=== PATIENT | male | born 1960 | race African-American/Black ===

== ENCOUNTER 2017-09-09 10:50 | Inpatient (IN) | payer SELFPAY ==
[~2017-09-09] VITALS: Ht 180.3 cm; Wt 76.7 kg
[2017-09-09] VITALS (12 sets, daily range): BP systolic 115–153; BP diastolic 89–98
[2017-09-09] MEDS ORDERED: Isovue-300 100ml vial INJ PRN (11:30)
[2017-09-09] MEDS ORDERED: Morphine Sulfate 4mg/ml Inj IVP ONE (11:30)
[2017-09-09] MEDS ORDERED: Ketorolac 30mg Inj IV ONE (11:30)
[2017-09-09] MEDS ORDERED: Gastrograffin 30ml ORAL PRN (11:30)
[2017-09-09 11:32] LABS: BASOPHILS % (AUTO) 1.4 % (0.0-2.0); HEMATOCRIT 46.6 % (42.0-52.0); HEMOGLOBIN 16.2 G/DL (14.2-18.0); LYMPHOCYTES % (AUTO) 13.3 % (20.0-45.0); MEAN CORPUSCULAR VOLUME 92 FL (80-99); NEUTROPHILS % (AUTO) 82.3 % (45.0-75.0); PLATELET COUNT 159 K/UL (150-450); RED BLOOD COUNT 5.07 M/UL (4.70-6.10); WHITE BLOOD COUNT 17.6 K/UL (4.8-10.8)
[2017-09-09 12:07] LABS: ALANINE AMINOTRANSFERASE 28 U/L (12-78); ALBUMIN 4.3 G/DL (3.4-5.0); ALKALINE PHOSPHATASE 58 U/L (46-116); ANION GAP 12 mmol/L (5-15); ASPARTATE AMINO TRANSFERASE 25 U/L (15-37); BILIRUBIN,TOTAL 0.6 MG/DL (0.2-1.0); BLOOD UREA NITROGEN 19 mg/dL (7-18); CALCIUM 9.7 MG/DL (8.5-10.1); CARBON DIOXIDE 25 MMOL/L (21-32); CHLORIDE 91 MMOL/L (98-107); CREATININE 1.4 MG/DL (0.55-1.30); SODIUM 128 MMOL/L (136-145)
[2017-09-09 12:09] LABS: POTASSIUM 2.6 MMOL/L (3.5-5.1)
[2017-09-09] MEDS ORDERED: Piperacillin/Tazobactam 3.375 GM in NS 110 ML IVPB ONE (13:45)
--- NOTE | 2017-09-09 13:48 | Diagnostic Imaging Report ---
Indication: Abdominal pain Technique: Continuous helical transaxial imaging of the abdomen and pelvis was obtained from the lung bases to the pubic symphysis during intravenous contrast administration. Coronal 2-D reformats were also obtained. Study obtained in a Siemens sensation [address] Automatic Exposure Control was utilized. Total Dose length Product (DLP): 515.[address] Dose Index Volume (CTDIvol): 9.87 mGy Comparison: None Findings: There is free intraperitoneal air and fluid demonstrated within the upper abdomen. Suspect perforated duodenal ulcer. In the area of the first portion of the duodenum there is a crescentic focus of contrast and air (for example image 24-27) with an apparent narrowing of the lumen in this location. Consequently the stomach is markedly dilated. This may be an ulceration. There may be an ulceration associated with stricture or narrowing. A mass is not excluded. Further evaluation is needed. The appendix is seen and normal. There are mildly distended loops of small bowel likely reactive ileus. No evidence of bowel obstruction. There is contrast within the colon. The kidneys, liver, spleen, pancreas appear normal. Gallbladder is unremarkable. IMPRESSION: Evidence of a perforation of a hollow viscus. Moderate free air is in the upper abdomen. Moderate free fluid. There is dilatation of the stomach with apparent narrowing in the first portion of duodenum with suspicion of a mucosal ulcer. Suspect this is the area of perforation due to [place] ulceration or ulcerative tumor. Critical value communication. Findings were discussed via telephone with Dr. Perez in the Emergency department at 1:40 pm, 09/09/[address] scanner at [facility] is accredited by the [employer] and the scans are performed using dose optimization techniques as appropriate to a performed exam including Automatic Exposure control.
--- NOTE | 2017-09-09 14:53 | Emergency Room Report ---
History of Present Illness General Chief Complaint: Abdominal Pain Source: EMS Present Illness HPI 56-year-old M presents ED complaining of abdominal pain. Patient states pain started this morning. Sudden onset. 10 out of 10, diffuse. Upon arrival patient is diaphoretic, tachycardic. Denies fevers or chills. Denies chest pain or shortness of breath. Notes vomiting. No other aggravating or relieving factors. Denies any other associated symptoms Allergies: Coded Allergies: No Known Allergies (Unverified , 09/09/17) Patient History Past Medical History: none Past Surgical History: none Pertinent Family History: none Social History: Denies: smoking, alcohol use, drug use Immunizations: UTD Reviewed Nursing Documentation: PMH: Agreed; PSxH: Agreed Nursing Documentation-PMH Past Medical History: No Stated History Review of Systems All Other Systems: negative except mentioned in HPI Physical Exam Vital Signs Date Time Temp Pulse Resp B/P (MAP) Pulse Ox O2 Delivery O2 Flow Rate FiO2 09/09/17 10:47 98.6 111 19 152/100 99 Room Air 98.6 Sp02 EP Interpretation: reviewed, normal General Appearance: alert, GCS 15, non-toxic, mild distress, thin, other - diaphoretic Head: normocephalic, atraumatic Eyes: bilateral eye normal inspection, bilateral eye PERRL ENT: hearing grossly normal, normal pharynx, no angioedema, normal voice Neck: full range of motion, supple/symm/no masses Respiratory: chest non-tender, lungs clear, normal breath sounds, speaking full sentences Cardiovascular #1: regular rate, rhythm, no edema Cardiovascular #2: 2+ carotid (R), 2+ carotid (L), 2+ radial (R), 2+ radial (L) , 2+ dorsalis pedis (R), 2+ dorsalis pedis (L) Gastrointestinal: distended, guarding, rebound Rectal: deferred Genitourinary: normal inspection, no CVA tenderness Musculoskeletal: back normal, gait/station normal, normal range of motion, non- tender Neurologic: alert, oriented x3, responsive, motor strength/tone normal, sensory intact, speech normal Psychiatric: judgement/insight normal, memory normal, mood/affect normal, no suicidal/homicidal ideation Reflexes: 3+ bicep (R), 3+ bicep (L), 3+ tricep (R), 3+ tricep (L), 3+ knee (R) , 3+ knee (L) Skin: normal color, no rash, warm/dry, well hydrated Lymphatic: no adenopathy Procedures Critical Care Time Critical Care Time i. I feel this is a highly complex case requiring extensive working including EKG/Rhythm strip, Xray/CT/US, Blood/urine lab work, repeat exams while in ED, and administration of strong opiates/narcotics for pain control, admission to hospital or close patient follow up. Total time: 30 min bedside evaluation and treatment excludes procedures (EKG). Reason for critical care: Abdominal pain, septic, low potassium. Perforated ulcer Possible complications: hypotension, hypertension, KS, shock, arrhythmias, metabolic acidosis, end organ damage, respiratory failure. Interventions: Labs, IV fluids, CT head, meds. Antibiotics. Potassium repletion. Consultation with surgery Course: Patient present with abdominal pain, tachycardic, diaphoretic with rigid abdomen. Significant white count. Lactic greater than 4. Potassium low. CT shows perforated ulcer with free air. Antibiotics given. Consultation with surgery. Consultations: nursing staff, EMS, family Performed by: Dr Perez Tolerated well condition = serious j. because of unstable vital signs this patient had a condition that could potentially threaten life or limb. I feel this is a critical patient who required my full attention while patient was considered critical. Total Critical Care Time excluding procedures was greater than 35 minutes Medical Decision Making Diagnostic Impression: Primary Impression: Perforated ulcer Additional Impressions: Free intraperitoneal air Severe sepsis ER Course Hospital Course 56-year-old male presents to ED with abdominal pain and vomiting. diaphoretic Differential diagnoses include: BPH, cystitis, pyelonephritis, kidney stone,SBO Clinical course Patient placed on stretcher. personnel monitor. After initial history and physical I ordered labs, IV fluids, UA, pain medication and CT scan Labs - noted leukocytosis, Hb/Hct stable. K low. lactate > 4 CT abdomen and pelvis - perofrated ulcer with free air EKG - NSR, no acute ischemic changes interpreted by me Patient made nothing by mouth. Given IV fluids. Given broad-spectrum antibiotics. Surgery at bedside and will take patient to OR Case discussed with Dr. Ortiz and he agreed to accept the patient to his service for further care and support. I feel this is a highly complex case requiring extensive working including EKG/ Rhythm strip, Xray/CT/US, Blood/urine lab work, repeat exams while in ED, and administration of strong opiates/narcotics for pain control, admission to hospital or close patient follow up. Diagnosis - perforated ulcer, free intraperionteal air, severe sepsis Patient to OR in serious condition Labs Test 09/09/17 10:35 09/09/17 11:15 09/09/17 11:40 09/09/17 13:40 White Blood Count 17.6 K/UL (4.8-10.8) Red Blood Count 5.07 M/UL (4.70-6.10) Hemoglobin 16.2 G/DL (14.2-18.0) Hematocrit 46.6 % (42.0-52.0) Mean Corpuscular Volume 92 FL (80-99) Mean Corpuscular Hemoglobin 31.9 PG (27.0-31.0) Mean Corpuscular Hemoglobin Concent 34.7 G/DL (32.0-36.0) Red Cell Distribution Width 11.0 % (11.6-14.8) Platelet Count 159 K/UL (150-450) Mean Platelet Volume 7.4 FL (6.5-10.1) Neutrophils (%) (Auto) 82.3 % (45.0-75.0) Lymphocytes (%) (Auto) 13.3 % (20.0-45.0) Monocytes (%) (Auto) 3.0 % (1.0-10.0) Eosinophils (%) (Auto) 0.0 % (0.0-3.0) Basophils (%) (Auto) 1.4 % (0.0-2.0) Prothrombin Time 10.7 SEC (9.30-11.50) Prothromb Time International Ratio 1.0 (0.9-1.1) Activated Partial Thromboplast Time 23 SEC (23-33) Sodium Level 128 MMOL/L (136-145) Potassium Level 2.6 MMOL/L (3.5-5.1) Chloride Level 91 MMOL/L (98-107) Carbon Dioxide Level 25 MMOL/L (21-32) Anion Gap 12 mmol/L (5-15) Blood Urea Nitrogen 19 mg/dL (7-18) Creatinine 1.4 MG/DL (0.55-1.30) Estimat Glomerular Filtration Rate 52.2 mL/min (>60) Glucose Level 179 MG/DL (74-106) Lactic Acid Level 4.50 mmol/L (0.66-2.22) 4.40 mmol/L (0.66-2.22) Calcium Level 9.7 MG/DL (8.5-10.1) Total Bilirubin 0.6 MG/DL (0.2-1.0) Aspartate Amino Transf (AST/SGOT) 25 U/L (15-37) Alanine Aminotransferase (ALT/SGPT) 28 U/L (12-78) Alkaline Phosphatase 58 U/L (46-116) Total Protein 8.5 G/DL (6.4-8.2) Albumin 4.3 G/DL (3.4-5.0) Globulin 4.2 g/dL Albumin/Globulin Ratio 1.0 (1.0-2.7) Lipase 79 U/L (73-393) EKG Diagnostic Results Rate: normal Rhythm: NSR ST Segments: no acute changes ASA given to the pt in ED: No Rhythm Strip Diag. Results EP Interpretation: yes Rhythm: NSR, no PVC's, no ectopy CT/MRI/US Diagnostic Results CT/MRI/US Diagnostic Results : Imaging Test Ordered: CT A/P Impression perforated duodenal ulcer. + free air peritoneum Last Vital Signs Date Time Temp Pulse Resp B/P (MAP) Pulse Ox O2 Delivery O2 Flow Rate FiO2 09/09/17 14:07 98.8 86 28 131/94 100 Room Air 98.8 Status: improved Disposition: ADMITTED INPATIENT Condition: Serious Scripts No Active Prescriptions or Reported Meds Referrals: NOT CHOSEN IPA/,REFERRING (PCP) Hernandez Perez MD September 09, 2017 14:53
--- NOTE | 2017-09-09 14:54 | Pre-Procedure Note/Attestation ---
Pre-Procedure Note/Attestation Complete Prior to Procedure Planned Procedure: not applicable Procedure Narrative: exploratory laparotomy, possible bowel resection, possible ostomy Indications for Procedure Pre-Operative Diagnosis: perforated abdominal viscus Attestation I attest that I discussed the nature of the procedure; its benefits; risks and complications; and alternatives (and the risks and benefits of such alternatives ), prior to the procedure, with the patient (or the patient's legal entry level sales representative). I attest that, if there was a reasonable possibility of needing a blood transfusion, the patient (or the patient's legal entry level sales representative) was given the [facility] standardized written summary, pursuant to the [place] Blood Safety Act ([place] Health and Safety Code # 1645, as amended). I attest that I re-evaluated the patient just prior to the surgery and that there has been no change in the patient's H&P, except as documented below: Yury Pittman September 09, 2017 14:54
--- NOTE | 2017-09-09 14:58 | Consultation ---
History of Present Illness General Date patient seen: September 09, 2017 Chief Complaint: Abdominal Pain Reason for Consultation: perforated abdominal viscus Present Illness HPI 56M presented to ED with abdominal pain. initially started 2-3 days ago and has progressively worsened. thought it was related to food but as pain was severe 01/21 this AM came to ED for evaluation. no n/v/f/c. has not had prior similar episodes. in ED had CT which demonstrated pneumoperitoneum consistent with perforated abd viscus. surgery called to evaluate Allergies: Coded Allergies: No Known Allergies (Unverified , 09/09/17) Medication History No Active Prescriptions or Reported Meds Patient History History Provided By: Patient, Medical Record, PMD Healthcare decision maker Resuscitation status Advanced Directive on File Past Medical/Surgical History Past Medical/Surgical History: (1) Perforated ulcer (2) Severe sepsis (3) Free intraperitoneal air Review of Systems All Other Systems: negative except mentioned in HPI Physical Exam General Appearance: mild distress Lines, tubes and drains: peripheral HEENT: atraumatic Neck: normal inspection Respiratory/Chest: lungs clear, normal breath sounds, no respiratory distress Cardiovascular/Chest: normal peripheral pulses, normal rate Abdomen: no organomegaly, no mass, distended, guarding, rebound, tender Extremities: normal inspection Neurologic: alert, oriented x 3 Last 24 Hour Vital Signs Date Time Temp Pulse Resp B/P (MAP) Pulse Ox O2 Delivery O2 Flow Rate FiO2 09/09/17 14:07 98.8 86 28 131/94 100 Room Air 98.8 09/09/17 12:15 98.8 09/09/17 12:15 98.8 09/09/17 12:05 98.8 90 19 128/97 100 Room Air 98.8 09/09/17 11:46 98.6 09/09/17 11:45 98.6 09/09/17 10:56 98.6 130 24 115/89 100 Room Air 98.6 09/09/17 10:47 98.6 111 19 152/100 99 Room Air 98.6 Laboratory Tests Test 09/09/17 10:35 09/09/17 11:15 09/09/17 11:40 09/09/17 13:40 White Blood Count 17.6 K/UL (4.8-10.8) H Red Blood Count 5.07 M/UL (4.70-6.10) Hemoglobin 16.2 G/DL (14.2-18.0) Hematocrit 46.6 % (42.0-52.0) Mean Corpuscular Volume 92 FL (80-99) Mean Corpuscular Hemoglobin 31.9 PG (27.0-31.0) H Mean Corpuscular Hemoglobin Concent 34.7 G/DL (32.0-36.0) Red Cell Distribution Width 11.0 % (11.6-14.8) L Platelet Count 159 K/UL (150-450) Mean Platelet Volume 7.4 FL (6.5-10.1) Neutrophils (%) (Auto) 82.3 % (45.0-75.0) H Lymphocytes (%) (Auto) 13.3 % (20.0-45.0) L Monocytes (%) (Auto) 3.0 % (1.0-10.0) Eosinophils (%) (Auto) 0.0 % (0.0-3.0) Basophils (%) (Auto) 1.4 % (0.0-2.0) Prothrombin Time 10.7 SEC (9.30-11.50) Prothromb Time International Ratio 1.0 (0.9-1.1) Activated Partial Thromboplast Time 23 SEC (23-33) Sodium Level 128 MMOL/L (136-145) L Potassium Level 2.6 MMOL/L (3.5-5.1) *L Chloride Level 91 MMOL/L (98-107) L Carbon Dioxide Level 25 MMOL/L (21-32) Anion Gap 12 mmol/L (5-15) Blood Urea Nitrogen 19 mg/dL (7-18) H Creatinine 1.4 MG/DL (0.55-1.30) H Estimat Glomerular Filtration Rate 52.2 mL/min (>60) Glucose Level 179 MG/DL (74-106) H Lactic Acid Level 4.50 mmol/L (0.66-2.22) H 4.40 mmol/L (0.66-2.22) H Calcium Level 9.7 MG/DL (8.5-10.1) Total Bilirubin 0.6 MG/DL (0.2-1.0) Aspartate Amino Transf (AST/SGOT) 25 U/L (15-37) Alanine Aminotransferase (ALT/SGPT) 28 U/L (12-78) Alkaline Phosphatase 58 U/L (46-116) Total Protein 8.5 G/DL (6.4-8.2) H Albumin 4.3 G/DL (3.4-5.0) Globulin 4.2 g/dL Albumin/Globulin Ratio 1.0 (1.0-2.7) Lipase 79 U/L (73-393) Height (Feet): 5 Height (Inches): 11.00 Weight (Pounds): 170 Medications Current Medications Medications (Trade) Dose Ordered Sig/Tisha Route PRN Reason Start Time Stop Time Status Last Admin Dose Admin Diatrizoate Meglum/ Diatrizoate Sod (Gastrografin) 30 ml NOW PRN ORAL Radiology Procedure 09/09/17 11:30 Iopamidol (Isovue-300 100ml) 100 ml NOW PRN INJ Radiology Procedure 09/09/17 11:30 09/11/17 11:29 Assessment/Plan Problem List: (1) Perforated abdominal viscus SNOMED: 106192464 (2) Free intraperitoneal air Assessment & Plan: 56M perforated abdominal viscus. free air and fluid on CT. exam with distended rigid abdomen. labs as above. -to OR for exploratory laparotomy. -NPO -IV fluids -IV Abx -consent ICD Codes: K66.8 - Other specified disorders of peritoneum SNOMED: 31575422 Status: not improved Yury Pittman September 09, 2017 14:58
[2017-09-09] MEDS ORDERED: Sterile Water Irrig 1000ml IRRIG ONE (15:00)
[2017-09-09] MEDS ORDERED: Metoprolol 5mg/5ml Inj ONE (15:00)
[2017-09-09] MEDS ORDERED: LR 1000ml ONE (15:00)
[2017-09-09] MEDS ORDERED: NS Irrig 1000ml ONE (15:00)
[2017-09-09] MEDS ORDERED: Zemuron 50mg/5ml Inj IV ONE (15:00)
[2017-09-09] MEDS ORDERED: Glycopyrrolate 0.2mg/ml 1ml Vial ONE (15:00)
[2017-09-09] MEDS ORDERED: Neostigmine 1mg/ml 10ml Inj ONE (15:00)
[2017-09-09] MEDS ORDERED: Lidocaine 1% Plain 30 ml INJ ONE (15:04)
[2017-09-09] MEDS ORDERED: Lidocaine 1% MPF 10mg/ml 5ml ONE (15:06)
[2017-09-09] MEDS ORDERED: Dexamethasone 4mg/ml vial ONE (15:06)
[2017-09-09] MEDS ORDERED: Sodium Chloride 10ml vial INJ ONE (15:06)
[2017-09-09] MEDS ORDERED: Propofol 200mg/20ml IV ONE (15:06)
[2017-09-09] MEDS ORDERED: fentaNYL 100 mcg/2 mL IV ONE (15:09)
[2017-09-09] MEDS ORDERED: Bacitracin 50000 Units Vial ONE (15:19)
[2017-09-09] MEDS ORDERED: Lidocaine 1% 10mg/ml/Epi 0.005mg/ml 30ml vial INJ ONE (15:19)
[2017-09-09] MEDS ORDERED: NeoSporin Gu Irrig 1ml Amp IRRIG ONE (15:19)
[2017-09-09] MEDS ORDERED: NS Irrig 1000ml IRRIG ONE (15:20)
--- NOTE | 2017-09-09 16:05 | Anethesia Preoperative Eval ---
Anesthesia Pre-op PMH/ROS General Date of Evaluation: September 09, 2017 Time of Evaluation: 15:11 Anesthesiologist: Vivian ASA Score: ASA 3 - Emergency Mallampati Score Class I : Soft palate, uvula, fauces, pillars visible Class II: Soft palate, uvula, fauces visible Class III: Soft palate, base of uvula visible Class IV: Only hard plate visible Mallampati Classification: Class III Surgeon: Zain Diagnosis: Abd Pain Surgical Procedure: Exploratory laparotomy, Corect Pre Pyloric Ulcer Anesthesia History: none Family History: no anesthesia problems Allergies: Coded Allergies: No Known Allergies (Unverified , 09/09/17) Medications: see eMAR Past Medical History Cardiovascular: Reports: HTN Gastrointestinal/Genitourinary: Reports: other - Free Intraperitoneal Air Hematology/Immune: Reports: other - Severe Sepsis, Leukocytosis Anesthesia Pre-op Phys. Exam Physician Exam Last Vital Signs Date Time Temp Pulse Resp B/P (MAP) Pulse Ox O2 Delivery O2 Flow Rate FiO2 09/09/17 15:05 98.8 86 28 134/94 100 Room Air 98.8 Constitutional: NAD Neurologic: CN 2-12 intact Cardiovascular: RRR Respiratory: CTA Gastrointestinal: S/NT/ND Airway Exam Mallampati Score: Class III MO: limited ROM: limited Teeth: missing, intact, broken Anesthesia Pre-op A/P Labs Hematology Test 09/09/17 10:35 White Blood Count 17.6 K/UL (4.8-10.8) H Red Blood Count 5.07 M/UL (4.70-6.10) Hemoglobin 16.2 G/DL (14.2-18.0) Hematocrit 46.6 % (42.0-52.0) Mean Corpuscular Volume 92 FL (80-99) Mean Corpuscular Hemoglobin 31.9 PG (27.0-31.0) H Mean Corpuscular Hemoglobin Concent 34.7 G/DL (32.0-36.0) Red Cell Distribution Width 11.0 % (11.6-14.8) L Platelet Count 159 K/UL (150-450) Mean Platelet Volume 7.4 FL (6.5-10.1) Neutrophils (%) (Auto) 82.3 % (45.0-75.0) H Lymphocytes (%) (Auto) 13.3 % (20.0-45.0) L Monocytes (%) (Auto) 3.0 % (1.0-10.0) Eosinophils (%) (Auto) 0.0 % (0.0-3.0) Basophils (%) (Auto) 1.4 % (0.0-2.0) Coagulation Test 09/09/17 11:15 Prothrombin Time 10.7 SEC (9.30-11.50) Prothromb Time International Ratio 1.0 (0.9-1.1) Activated Partial Thromboplast Time 23 SEC (23-33) Chemistry Test 09/09/17 11:40 09/09/17 13:40 Sodium Level 128 MMOL/L (136-145) L Potassium Level 2.6 MMOL/L (3.5-5.1) *L Chloride Level 91 MMOL/L (98-107) L Carbon Dioxide Level 25 MMOL/L (21-32) Anion Gap 12 mmol/L (5-15) Blood Urea Nitrogen 19 mg/dL (7-18) H Creatinine 1.4 MG/DL (0.55-1.30) H Estimat Glomerular Filtration Rate 52.2 mL/min (>60) Glucose Level 179 MG/DL (74-106) H Lactic Acid Level 4.50 mmol/L (0.66-2.22) H 4.40 mmol/L (0.66-2.22) H Calcium Level 9.7 MG/DL (8.5-10.1) Total Bilirubin 0.6 MG/DL (0.2-1.0) Aspartate Amino Transf (AST/SGOT) 25 U/L (15-37) Alanine Aminotransferase (ALT/SGPT) 28 U/L (12-78) Alkaline Phosphatase 58 U/L (46-116) Total Protein 8.5 G/DL (6.4-8.2) H Albumin 4.3 G/DL (3.4-5.0) Globulin 4.2 g/dL Albumin/Globulin Ratio 1.0 (1.0-2.7) Lipase 79 U/L (73-393) Risk Assessment & Plan Assessment: ASA 3E Plan: GA, BIS, GlideScope Status Change Before Surgery: No Pre-Antibiotics Dru Grams Ancef IV Given Within 1 Hr of Incision: Yes Time Given: 15:41 Walter Park MD September 09, 2017 16:05
[2017-09-09] MEDS ORDERED: LR 1000ml 1,000 ML IVLG SCH (16:21)
--- NOTE | 2017-09-09 16:26 | Immediate Post-Op Evaluation ---
Immediate Post-Op Evalulation Immediate Post-Op Evalulation Procedure: Ex Lap, Correct Pre Pyloric Rent Date of Evaluation: September 09, 2017 Time of Evaluation: 18:20 IV Fluids: 400 LR Blood Products: 0 Estimated Blood Loss: 50 Urinary Output: 0 Blood Pressure Systolic: 140 Blood Pressure Diastolic: 94 Pulse Rate: 66 Respiratory Rate: 16 O2 Sat by Pulse Oximetry: 100 Temperature (Fahrenheit): 97.4 Pain Score (1-10): 3 Nausea: No Vomiting: No Complications 0 Patient Status: awake, reacts, patent, extubated, none Hydration Status: adequate Dru Grams Ancef IV Given Within 1 Hr of Incision: Yes Time Given: 15:41 Walter Park MD September 09, 2017 16:26
[2017-09-09] MEDS ORDERED: LORazepam Inj 2mg/ml 1ml IV PRN (16:30)
[2017-09-09] MEDS ORDERED: Atropine Inj 1mg/10ml Syr IV PRN (16:30)
[2017-09-09] MEDS ORDERED: Metoclopramide 10mg/2ml Inj IVP PRN (16:30)
[2017-09-09] MEDS ORDERED: Acetaminophen (Non formulary) 100 ML IV ONE (16:30)
[2017-09-09] MEDS ORDERED: Ketorolac 30mg Inj IV PRN ×3 (16:30→18:00)
[2017-09-09] MEDS ORDERED: Midazolam 2mg/2ml Inj IVP PRN (16:30)
[2017-09-09] MEDS ORDERED: oxyCODONE HCL/Acetaminophen 5/325mg ORAL PRN (16:30)
[2017-09-09] MEDS ORDERED: HYDROcodone/Acetamin 7.5/325 tab ORAL PRN (16:30)
[2017-09-09] MEDS ORDERED: Norco 5mg/325mg tab ORAL PRN (16:30)
[2017-09-09] MEDS ORDERED: Hydromorphone 0.5mg/0.5ml inj IVP PRN ×2 (16:30→18:00)
[2017-09-09] MEDS ORDERED: DiphenhydrAMINE 50mg/ml Inj IVP PRN ×2 (16:30→18:00)
[2017-09-09] MEDS ORDERED: Labetalol 5mg/ml 20ml vial IV PRN (16:30)
[2017-09-09] MEDS ORDERED: fentaNYL 100 mcg/2 mL IV PRN (16:30)
--- NOTE | 2017-09-09 17:59 | Brief Operative Note ---
Immediate Post Operative Note Operative Note Pre-op Diagnosis: perforated abdominal viscus Procedure: exploratory laparotomy, antrectomy, gastrojejunostomy (Billroth 2 procedure) Post-op Diagnosis: perforated pyloric channel ulcer Surgeon: yuri Anesthesiologist: August Anesthesia: general Specimen: yes - antrectomy with perforatedulcer Complications: none Condition: stable Fluids: see records Estimated Blood Loss: volume - 100 Drains: BOAZ Implant(s) used?: No Yury Pittman September 09, 2017 17:59
[2017-09-09] MEDS ORDERED: Morphine Sulfate 4mg/ml Inj IVP PRN (18:00)
[2017-09-09] MEDS ORDERED: Acetaminophen 650 MG SUPP RECTAL PRN (18:00)
[2017-09-09] MEDS: Pantoprazole Inj IVP SCH (21:28)
[2017-09-09] MEDS: D5 1/2NS w/KCl 20mEq 1,000 ML IV SCH (21:28)
[2017-09-09] MEDS: Heparin 5000 units/ml inj SUBQ SCH (21:29)
[2017-09-09] MEDS: Piperacillin/Tazobactam 3.375 GM in NS 110 ML IVPB SCH (22:10)
[2017-09-10] VITALS: BP 137/88
--- NOTE | 2017-09-10 02:00 | History and Physical Report ---
DATE OF ADMISSION: 09/09/2017 CONSULTANTS: 1. Yury Pittman M.D. 2. Gil Henry M.D. 3. Vaibhav Ricci M.D. 4. Gem Ashley M.D. CHIEF COMPLAINT: Abdominal pain, vomiting, and perforated duodenal ulcer. BRIEF HISTORY: This 56-year-old male, complaining of abdominal pain for three days, gotten worse, he began ecame vomiting, came to [place], diagnosed with perforated duodenal ulcer and being admitted shortly. Currently, slightly anxious in bed, in the ER, oriented x3, in no acute distress. The patient was seen by surgeon, Dr. Pittman. PAST MEDICAL HISTORY: Nothing. PAST SURGICAL HISTORY: None. MEDICATIONS: Zosyn, Zofran, famotidine, Ketoralac, morphine, and diltiazem. ALLERGIES: Denies. SOCIAL HISTORY: No smoking. Occasional alcohol. No intravenous drug abuse. FAMILY HISTORY: Noncontributory. PHYSICAL EXAMINATION: GENERAL: Slightly anxious in bed, oriented x3, no acute distress. VITAL SIGNS: Temperature 98 degrees, pulse 86, respirations 20 and blood pressure 131/94. CARDIOVASCULAR: No murmur. LUNGS: Distant. ABDOMEN: Bowel sounds positive. Soft, nontender, and nondistended. EXTREMITIES: No cyanosis, clubbing or edema. NEUROLOGIC: The patient moves all extremities, slightly weak. LABORATORY AND DIAGNOSTIC DATA: White count 17, otherwise CBC is normal. BMP shows sodium 128, potassium 2.6, chloride 91, bicarbonate 25, BUN and creatinine 19 and 1.4, and glucose 179. INR is 1.0. ASSESSMENT: 1. Perforated duodenal ulcer. 2. Possible diabetes. 3. Hypertension. PLAN: 1. Continue previous medications. 2. OT/PT. 3. Dietary evaluation. 4. CBC and BMP in the morning. 5. Pain control. 6. Blood pressure and blood sugar control. 7. Dr. Pittman, Dr. Henry, Dr. Ricci, Dr. Ashley, Dr. Scott and Dr. Velázquez to consult. 8. We will continue to follow the patient medically. Real Ortiz D.O. DR: UGO JOB#: [id number] CC:
[2017-09-10 04:00] VITALS: BP 130/87
[2017-09-10] MEDS: Piperacillin/Tazobactam 3.375 GM in NS 110 ML IVPB SCH ×3 (05:44→22:36)
[2017-09-10] MEDS: D5 1/2NS w/KCl 20mEq 1,000 ML IV SCH ×3 (05:44→21:00)
[2017-09-10 07:58] LABS: HEMATOCRIT 36.2 % (42.0-52.0); HEMOGLOBIN 13.1 G/DL (14.2-18.0); MEAN CORPUSCULAR VOLUME 91 FL (80-99); PLATELET COUNT 145 K/UL (150-450); RED BLOOD COUNT 3.98 M/UL (4.70-6.10); WHITE BLOOD COUNT 15.9 K/UL (4.8-10.8)
[2017-09-10 08:00] VITALS: BP 129/80
[2017-09-10] MEDS: Pantoprazole Inj IVP SCH ×2 (08:26→22:35)
[2017-09-10] MEDS: Heparin 5000 units/ml inj SUBQ SCH ×2 (08:27→21:12)
[2017-09-10 08:33] LABS: ALANINE AMINOTRANSFERASE 27 U/L (12-78); ALBUMIN 2.6 G/DL (3.4-5.0); ALBUMIN/GLOBULIN RATIO 0.8 (1.0-2.7); ALKALINE PHOSPHATASE 39 U/L (46-116); ANION GAP 9 mmol/L (5-15); ASPARTATE AMINO TRANSFERASE 33 U/L (15-37); BILIRUBIN,TOTAL 0.4 MG/DL (0.2-1.0); BLOOD UREA NITROGEN 18 mg/dL (7-18); CALCIUM 7.8 MG/DL (8.5-10.1); CARBON DIOXIDE 23 MMOL/L (21-32); CHLORIDE 100 MMOL/L (98-107); CREATININE 1.2 MG/DL (0.55-1.30); POTASSIUM 3.7 MMOL/L (3.5-5.1); SODIUM 131 MMOL/L (136-145)
--- NOTE | 2017-09-10 10:38 | 48 Hour Post Anesthesia Eval ---
Post Anesthesia Evaluation Procedure: Ex Lap, Correct Pre Pyloric Rent Date of Evaluation: September 10, 2017 Blood Pressure Systolic: 130 0: 87 Pulse Rate: 89 Respiratory Rate: 20 Temperature (Fahrenheit): 99 O2 Sat by Pulse Oximetry: 100 Airway: patent Nausea: No Vomiting: No Pain Intensity: 3 Hydration Status: adequate Cardiopulmonary Status: at baseline Mental Status/LOC: patient returned to baseline Post-Anesthesia Complications: 0 Follow-up care needed: N/A - further care as per prmary team KIMO DENNY M.D. September 10, 2017 10:38
--- NOTE | 2017-09-10 11:35 | General Progress Note ---
Progress Note Progress Note [id number] full consult dictated Gogo Velázquez MD September 10, 2017 11:35
--- NOTE | 2017-09-10 11:38 | GI Initial Consult Note ---
History of Present Illness General Date patient seen: September 10, 2017 Time patient seen: 10:00 Reason for Hospitalization: Abdominal Pain Referring physician: JULIO Reason for Consultation: perforated abdominal viscus Present Illness HPI 56-year-old M presents ED complaining of abdominal pain. Patient states pain started this morning. Sudden onset. 10 out of 10, diffuse. Upon arrival patient is diaphoretic, tachycardic. Denies fevers or chills. Denies chest pain or shortness of breath. Notes vomiting. No other aggravating or relieving factors. Denies any other associated symptoms. Patient is currently s/p exploratory laparotomy, antrectomy, gastrojejunostomy ( Billroth 2 procedure) for perforated DU. GI consulted for abdominal pain, post operative N/V. Patient seen, awake A&O x 4 NAD noted with NGT to LIS. C/ o of abdominal pain, but tolerable. Presents with leukocytosis, hyperchromic anemia. Denies any medical history. Unknown history of endoscopy / colonoscopy. Home Meds No Active Prescriptions or Reported Meds Allergies: Coded Allergies: No Known Allergies (Unverified , 09/09/17) Patient History History Provided By: Patient, Medical Record PMH Narrative Past Medical History: none Past Surgical History: none Pertinent Family History: none Social History: Denies: smoking, alcohol use, drug use Immunizations: UTD Reviewed Nursing Documentation: PMH: Agreed; PSxH: Agreed Nursing Documentation-PMH Past Medical History: No Stated History Review of Systems All Other Systems: negative except mentioned in HPI Physical Exam Vital Signs Date Time Temp Pulse Resp B/P (MAP) Pulse Ox O2 Delivery O2 Flow Rate FiO2 09/09/17 10:47 98.6 111 19 152/100 99 Room Air 98.6 09/09/17 18:09 8.0 Sp02 EP Interpretation: reviewed, normal Labs Laboratory Tests Test 09/09/17 11:40 09/09/17 13:40 09/10/17 07:30 Sodium Level 128 MMOL/L (136-145) L 131 MMOL/L (136-145) L Potassium Level 2.6 MMOL/L (3.5-5.1) *L 3.7 MMOL/L (3.5-5.1) Chloride Level 91 MMOL/L (98-107) L 100 MMOL/L (98-107) Carbon Dioxide Level 25 MMOL/L (21-32) 23 MMOL/L (21-32) Anion Gap 12 mmol/L (5-15) 9 mmol/L (5-15) Blood Urea Nitrogen 19 mg/dL (7-18) H 18 mg/dL (7-18) Creatinine 1.4 MG/DL (0.55-1.30) H 1.2 MG/DL (0.55-1.30) Estimat Glomerular Filtration Rate 52.2 mL/min (>60) > 60 mL/min (>60) Glucose Level 179 MG/DL (74-106) H 95 MG/DL (74-106) Lactic Acid Level 4.50 mmol/L (0.66-2.22) H 4.40 mmol/L (0.66-2.22) H Calcium Level 9.7 MG/DL (8.5-10.1) 7.8 MG/DL (8.5-10.1) L Total Bilirubin 0.6 MG/DL (0.2-1.0) 0.4 MG/DL (0.2-1.0) Aspartate Amino Transf (AST/SGOT) 25 U/L (15-37) 33 U/L (15-37) Alanine Aminotransferase (ALT/SGPT) 28 U/L (12-78) 27 U/L (12-78) Alkaline Phosphatase 58 U/L (46-116) 39 U/L (46-116) L Total Protein 8.5 G/DL (6.4-8.2) H 5.7 G/DL (6.4-8.2) #L Albumin 4.3 G/DL (3.4-5.0) 2.6 G/DL (3.4-5.0) L Globulin 4.2 g/dL 3.1 g/dL Albumin/Globulin Ratio 1.0 (1.0-2.7) 0.8 (1.0-2.7) L Lipase 79 U/L (73-393) White Blood Count 15.9 K/UL (4.8-10.8) H Red Blood Count 3.98 M/UL (4.70-6.10) L Hemoglobin 13.1 G/DL (14.2-18.0) L Hematocrit 36.2 % (42.0-52.0) L Mean Corpuscular Volume 91 FL (80-99) Mean Corpuscular Hemoglobin 32.9 PG (27.0-31.0) H Mean Corpuscular Hemoglobin Concent 36.1 G/DL (32.0-36.0) H Red Cell Distribution Width 11.0 % (11.6-14.8) L Platelet Count 145 K/UL (150-450) L Mean Platelet Volume 7.7 FL (6.5-10.1) Neutrophils (%) (Auto) % (45.0-75.0) Lymphocytes (%) (Auto) % (20.0-45.0) Monocytes (%) (Auto) % (1.0-10.0) Eosinophils (%) (Auto) % (0.0-3.0) Basophils (%) (Auto) % (0.0-2.0) Differential Total Cells Counted 100 Neutrophils % (Manual) 84 % (45-75) H Lymphocytes % (Manual) 8 % (20-45) L Monocytes % (Manual) 3 % (1-10) Eosinophils % (Manual) 0 % (0-3) Basophils % (Manual) 0 % (0-2) Band Neutrophils 5 % (0-8) Platelet Estimate Decreased L Platelet Morphology Normal Red Blood Cell Morphology Normal Helicobacter pylori IgG Antibody Pending Helicobacter pylori IgA Antibody Pending Helicobacter pylori IgM Antibody Pending General Appearance: well appearing, no apparent distress, alert Head: normocephalic EENT: PERRL/EOMI, normal ENT inspection Neck: supple Respiratory: normal breath sounds, no respiratory distress Cardiovascular: normal rate Gastrointestinal: normal inspection, non tender, soft, normal bowel sounds, non -distended, ngt, other - surgical incision site Rectal: deferred Genitourinary: deferred Musculoskeletal: normal inspection, back normal Neurologic: normal inspection, alert, oriented x3, responsive Psychiatric: normal inspection, judgement/insight normal, memory normal Skin: normal inspection, normal color, no rash, warm/dry, palpation normal, well hydrated Lymphatic: normal inspection, no adenopathy Current Medications Current Medications Medications (Trade) Dose Ordered Sig/Tisha Route PRN Reason Start Time Stop Time Status Last Admin Dose Admin Acetaminophen (Tylenol) 650 mg Q4H PRN RECTAL FEVER (temp>100.5F) 09/09/17 18:00 10/09/17 17:59 Dextrose/ Electrolytes 1,000 ml @ 100 mls/hr Q10H IV 09/09/17 20:00 10/09/17 19:59 09/10/17 05:44 Diatrizoate Meglum/ Diatrizoate Sod (Gastrografin) 30 ml NOW PRN ORAL Radiology Procedure 09/09/17 11:30 09/11/17 11:29 Diphenhydramine HCl (Benadryl) 12.5 mg Q6H PRN IVP Itching/Pruritis 09/09/17 18:00 10/09/17 17:59 Heparin Sodium (Porcine) (Heparin 5000 units/ml) 5,000 units EVERY 12 HOURS SUBQ 09/09/17 21:00 10/09/17 20:59 09/10/17 08:27 Hydromorphone HCl (Dilaudid) 0.5 mg Q3H PRN IVP Pain Score 1-3 09/09/17 18:00 09/16/17 17:59 Iopamidol (Isovue-300 100ml) 100 ml NOW PRN INJ Radiology Procedure 09/09/17 11:30 09/11/17 11:29 Ketorolac Tromethamine (Toradol 30mg) 15 mg Q6H PRN IV Moderate Pain (Pain Scale 4-6) 09/09/17 18:00 09/14/17 17:59 Morphine Sulfate (Morphine Sulfate) 4 mg Q4H PRN IVP Severe Pain (Pain Scale 7-10) 09/09/17 18:00 09/16/17 17:59 09/10/17 10:12 Ondansetron HCl (Zofran) 4 mg Q6H PRN IVP Nausea & Vomiting 09/09/17 18:00 10/09/17 17:59 Pantoprazole (Protonix) 40 mg Q12HR IVP 09/09/17 21:00 10/09/17 20:59 09/10/17 08:26 Piperacillin Sod/ Tazobactam Sod 3.375 gm/Sodium Chloride 110 ml @ 27.5 mls/hr EVERY 8 HOURS IVPB 09/09/17 22:00 09/14/17 21:59 09/10/17 05:44 GI: Plan Problems: (1) Perforated abdominal viscus (2) Severe sepsis (3) Abdominal pain Plan s/p exploratory laparotomy, antrectomy, gastrojejunostomy (Billroth 2 procedure) hyperchromic anemia electrolyte imbalance fu surgical recs NPO + IVFs NGT to LIS pain mgmt zofran prn ppi IV fu labs outpatient GI procedures Discussed with Dr. Henry. Thank you for this patient referral, we will follow. The patient was seen and examined at bedside and all new and available data was reviewed in the patients chart. I agree with the above findings, impression and plan. (Patient seen earlier today. Signature stamp does not reflect patient encounter time.). - MD Tracy SilvaBanner [facility] September 10, 2017 11:38
[2017-09-10 12:00] VITALS: BP 142/83
--- NOTE | 2017-09-10 12:01 | Consultation ---
History of Present Illness General Date patient seen: September 10, 2017 Chief Complaint: Abdominal Pain Reason for Consultation: perforated abdominal viscus Present Illness HPI 56-year-old Male presented to ED complaining of abdominal pain. he was diagnosed to have perforated viscus and underwent laparotomy. Allergies: Coded Allergies: No Known Allergies (Unverified , 09/09/17) Medication History No Active Prescriptions or Reported Meds Patient History Healthcare decision maker Resuscitation status Full Code Advanced Directive on File Review of Systems All Other Systems: negative except mentioned in HPI Physical Exam General Appearance: WD/WN Lines, tubes and drains: peripheral HEENT: normocephalic, anicteric Neck: non-tender, normal alignment Respiratory/Chest: chest wall non-tender, lungs clear Breasts: no masses Cardiovascular/Chest: normal peripheral pulses Abdomen: normal bowel sounds Last 24 Hour Vital Signs Date Time Temp Pulse Resp B/P (MAP) Pulse Ox O2 Delivery O2 Flow Rate FiO2 09/10/17 10:38 210.2 89 20 100 09/10/17 08:00 97.3 82 20 129/80 100 Nasal Cannula 3.0 97.3 09/10/17 04:00 99.0 89 20 130/87 100 Room Air 99.0 09/10/17 03:47 93 09/10/17 00:00 98.6 95 20 137/88 100 Room Air 98.6 09/09/17 23:50 78 09/09/17 20:30 80 09/09/17 20:00 97.2 67 16 153/92 100 Room Air 97.2 09/09/17 19:10 97.0 67 16 148/91 99 Nasal Cannula 3.0 97.0 09/09/17 19:00 64 16 147/93 100 Nasal Cannula 3.0 09/09/17 18:43 64 16 147/93 100 Simple Mask 8.0 09/09/17 18:30 63 16 147/96 100 Simple Mask 8.0 09/09/17 18:19 64 16 143/98 100 Simple Mask 8.0 09/09/17 18:14 66 16 151/98 100 Simple Mask 8.0 09/09/17 18:10 207.3 66 16 100 09/09/17 18:09 97.4 66 16 140/94 100 Simple Mask 8.0 97.4 09/09/17 15:05 98.8 86 28 134/94 100 Room Air 98.8 09/09/17 15:01 98.8 86 28 134/94 100 Room Air 98.8 09/09/17 14:07 98.8 86 28 131/94 100 Room Air 98.8 09/09/17 12:15 98.8 09/09/17 12:15 98.8 09/09/17 12:05 98.8 90 19 128/97 100 Room Air 98.8 09/09/17 11:46 98.6 Intake and Output 09/09/17 09/10/17 19:00 07:00 Intake Total 600 ml 1273.98 ml Output Total 200 ml 505 ml Balance 400 ml 768.98 ml Intake Oral 0 ml IV Total 600 ml 1273.98 ml Output Urine Total 150 ml 250 ml Gastric Drainage Total 10 ml Drainage Total 245 ml Estimated Blood Loss 50 ml Laboratory Tests Test 09/09/17 13:40 09/10/17 07:30 Lactic Acid Level 4.40 mmol/L (0.66-2.22) H White Blood Count 15.9 K/UL (4.8-10.8) H Red Blood Count 3.98 M/UL (4.70-6.10) L Hemoglobin 13.1 G/DL (14.2-18.0) L Hematocrit 36.2 % (42.0-52.0) L Mean Corpuscular Volume 91 FL (80-99) Mean Corpuscular Hemoglobin 32.9 PG (27.0-31.0) H Mean Corpuscular Hemoglobin Concent 36.1 G/DL (32.0-36.0) H Red Cell Distribution Width 11.0 % (11.6-14.8) L Platelet Count 145 K/UL (150-450) L Mean Platelet Volume 7.7 FL (6.5-10.1) Neutrophils (%) (Auto) % (45.0-75.0) Lymphocytes (%) (Auto) % (20.0-45.0) Monocytes (%) (Auto) % (1.0-10.0) Eosinophils (%) (Auto) % (0.0-3.0) Basophils (%) (Auto) % (0.0-2.0) Differential Total Cells Counted 100 Neutrophils % (Manual) 84 % (45-75) H Lymphocytes % (Manual) 8 % (20-45) L Monocytes % (Manual) 3 % (1-10) Eosinophils % (Manual) 0 % (0-3) Basophils % (Manual) 0 % (0-2) Band Neutrophils 5 % (0-8) Platelet Estimate Decreased L Platelet Morphology Normal Red Blood Cell Morphology Normal Sodium Level 131 MMOL/L (136-145) L Potassium Level 3.7 MMOL/L (3.5-5.1) Chloride Level 100 MMOL/L (98-107) Carbon Dioxide Level 23 MMOL/L (21-32) Anion Gap 9 mmol/L (5-15) Blood Urea Nitrogen 18 mg/dL (7-18) Creatinine 1.2 MG/DL (0.55-1.30) Estimat Glomerular Filtration Rate > 60 mL/min (>60) Glucose Level 95 MG/DL (74-106) Calcium Level 7.8 MG/DL (8.5-10.1) L Total Bilirubin 0.4 MG/DL (0.2-1.0) Aspartate Amino Transf (AST/SGOT) 33 U/L (15-37) Alanine Aminotransferase (ALT/SGPT) 27 U/L (12-78) Alkaline Phosphatase 39 U/L (46-116) L Total Protein 5.7 G/DL (6.4-8.2) #L Albumin 2.6 G/DL (3.4-5.0) L Globulin 3.1 g/dL Albumin/Globulin Ratio 0.8 (1.0-2.7) L Helicobacter pylori IgG Antibody Pending Helicobacter pylori IgA Antibody Pending Helicobacter pylori IgM Antibody Pending Microbiology Date/Time Source Procedure Growth Status 09/09/17 16:03 Abdomen Gram Stain - Final Resulted 09/09/17 16:03 Abdomen Aerobic Culture - Preliminary NO GROWTH Resulted 09/09/17 16:03 Abdomen Anaerobic Culture - Preliminary Resulted Height (Feet): 5 Height (Inches): 11.00 Weight (Pounds): 169 Medications Current Medications Medications (Trade) Dose Ordered Sig/Tisha Route PRN Reason Start Time Stop Time Status Last Admin Dose Admin Acetaminophen (Tylenol) 650 mg Q4H PRN RECTAL FEVER (temp>100.5F) 09/09/17 18:00 10/09/17 17:59 Dextrose/ Electrolytes 1,000 ml @ 100 mls/hr Q10H IV 09/09/17 20:00 10/09/17 19:59 09/10/17 05:44 Diatrizoate Meglum/ Diatrizoate Sod (Gastrografin) 30 ml NOW PRN ORAL Radiology Procedure 09/09/17 11:30 09/11/17 11:29 Diphenhydramine HCl (Benadryl) 12.5 mg Q6H PRN IVP Itching/Pruritis 09/09/17 18:00 10/09/17 17:59 Heparin Sodium (Porcine) (Heparin 5000 units/ml) 5,000 units EVERY 12 HOURS SUBQ 09/09/17 21:00 10/09/17 20:59 09/10/17 08:27 Hydromorphone HCl (Dilaudid) 0.5 mg Q3H PRN IVP Pain Score 1-3 09/09/17 18:00 09/16/17 17:59 Iopamidol (Isovue-300 100ml) 100 ml NOW PRN INJ Radiology Procedure 09/09/17 11:30 09/11/17 11:29 Ketorolac Tromethamine (Toradol 30mg) 15 mg Q6H PRN IV Moderate Pain (Pain Scale 4-6) 09/09/17 18:00 09/14/17 17:59 Morphine Sulfate (Morphine Sulfate) 4 mg Q4H PRN IVP Severe Pain (Pain Scale 7-10) 09/09/17 18:00 09/16/17 17:59 09/10/17 10:12 Ondansetron HCl (Zofran) 4 mg Q6H PRN IVP Nausea & Vomiting 09/09/17 18:00 10/09/17 17:59 Pantoprazole (Protonix) 40 mg Q12HR IVP 09/09/17 21:00 10/09/17 20:59 09/10/17 08:26 Piperacillin Sod/ Tazobactam Sod 3.375 gm/Sodium Chloride 110 ml @ 27.5 mls/hr EVERY 8 HOURS IVPB 09/09/17 22:00 09/14/17 21:59 09/10/17 05:44 Assessment/Plan Problem List: (1) Severe sepsis ICD Codes: A41.9 - Sepsis, unspecified organism; R65.20 - Severe sepsis without septic shock SNOMED: 78739093 (2) Perforated ulcer ICD Codes: K27.5 - Chronic or unspecified peptic ulcer, site unspecified, with perforation SNOMED: 18590417 Assessment/Plan NPO iv fluids IV abx check cultures check electrolytes Gem Ashley MD September 10, 2017 12:01
--- NOTE | 2017-09-10 14:22 | General Progress Note ---
Progress Note Progress Note Surgery: doing well. no acute events. NG tube with bilious output. BOAZ drain with serous output. wound c/d/i. exam benign. labs reviewed. POD #1 s/p ex lap with antrectomy and gastrojejunostomy (Billroth 2) for large perforated perpyloric ulcer. -NPO x 3-5 days -NG tube to low intermittent suction. (DO NOT replace NG tube if dislodged) -IV fludis -IV Abx -d/c li -ambulate and out of bed -AM labs -heparin Yury Pittman September 10, 2017 14:22
--- NOTE | 2017-09-10 15:15 | Consultation ---
History of Present Illness General Date patient seen: September 10, 2017 Chief Complaint: Abdominal Pain Referring physician: JULIO Reason for Consultation: perforated abdominal viscus Present Illness HPI 56 y/o M with no prior medical history presents to ED on 09/09 with 2-3 days of worsening abd pain. In ED noted to be diaphoretic, tachycardic and found to have perforated viscus and underwent emergent laparotomy which revealed perforated duodenal ulcer. Post op patient developed nausea and vomiting. Denies f/c, n/v, CP, SOB upon admission. Leukocytosis, improving afebrile Allergies: Coded Allergies: No Known Allergies (Unverified , 09/09/17) Medication History No Active Prescriptions or Reported Meds Patient History Healthcare decision maker Resuscitation status Full Code Advanced Directive on File Patient History Narrative Pmhx: as above Shx: reviewed Fhx: non contributory Review of Systems All Other Systems: negative except mentioned in HPI Physical Exam Physical Exam Narrative General Appearance: WD/WN Lines, tubes and drains: peripheral HEENT: normocephalic, anicteric Neck: non-tender, normal alignment Respiratory/Chest: chest wall non-tender, lungs clear Breasts: no masses Cardiovascular/Chest: normal peripheral pulses Abdomen: surgical dressings in place Last 24 Hour Vital Signs Date Time Temp Pulse Resp B/P (MAP) Pulse Ox O2 Delivery O2 Flow Rate FiO2 09/10/17 12:00 98.1 96 20 142/83 100 Nasal Cannula 3.0 98.1 09/10/17 12:00 77 09/10/17 10:38 210.2 89 20 100 09/10/17 08:00 86 09/10/17 08:00 97.3 82 20 129/80 100 Nasal Cannula 3.0 97.3 09/10/17 04:00 99.0 89 20 130/87 100 Room Air 99.0 09/10/17 03:47 93 09/10/17 00:00 98.6 95 20 137/88 100 Room Air 98.6 09/09/17 23:50 78 09/09/17 20:30 80 09/09/17 20:00 97.2 67 16 153/92 100 Room Air 97.2 09/09/17 19:10 97.0 67 16 148/91 99 Nasal Cannula 3.0 97.0 09/09/17 19:00 64 16 147/93 100 Nasal Cannula 3.0 09/09/17 18:43 64 16 147/93 100 Simple Mask 8.0 09/09/17 18:30 63 16 147/96 100 Simple Mask 8.0 09/09/17 18:19 64 16 143/98 100 Simple Mask 8.0 09/09/17 18:14 66 16 151/98 100 Simple Mask 8.0 09/09/17 18:10 207.3 66 16 100 09/09/17 18:09 97.4 66 16 140/94 100 Simple Mask 8.0 97.4 09/09/17 15:05 98.8 86 28 134/94 100 Room Air 98.8 09/09/17 15:01 98.8 86 28 134/94 100 Room Air 98.8 Intake and Output 09/09/17 09/10/17 19:00 07:00 Intake Total 600 ml 1273.98 ml Output Total 200 ml 505 ml Balance 400 ml 768.98 ml Intake Oral 0 ml IV Total 600 ml 1273.98 ml Output Urine Total 150 ml 250 ml Gastric Drainage Total 10 ml Drainage Total 245 ml Estimated Blood Loss 50 ml Laboratory Tests Test 09/10/17 07:30 White Blood Count 15.9 K/UL (4.8-10.8) H Red Blood Count 3.98 M/UL (4.70-6.10) L Hemoglobin 13.1 G/DL (14.2-18.0) L Hematocrit 36.2 % (42.0-52.0) L Mean Corpuscular Volume 91 FL (80-99) Mean Corpuscular Hemoglobin 32.9 PG (27.0-31.0) H Mean Corpuscular Hemoglobin Concent 36.1 G/DL (32.0-36.0) H Red Cell Distribution Width 11.0 % (11.6-14.8) L Platelet Count 145 K/UL (150-450) L Mean Platelet Volume 7.7 FL (6.5-10.1) Neutrophils (%) (Auto) % (45.0-75.0) Lymphocytes (%) (Auto) % (20.0-45.0) Monocytes (%) (Auto) % (1.0-10.0) Eosinophils (%) (Auto) % (0.0-3.0) Basophils (%) (Auto) % (0.0-2.0) Differential Total Cells Counted 100 Neutrophils % (Manual) 84 % (45-75) H Lymphocytes % (Manual) 8 % (20-45) L Monocytes % (Manual) 3 % (1-10) Eosinophils % (Manual) 0 % (0-3) Basophils % (Manual) 0 % (0-2) Band Neutrophils 5 % (0-8) Platelet Estimate Decreased L Platelet Morphology Normal Red Blood Cell Morphology Normal Sodium Level 131 MMOL/L (136-145) L Potassium Level 3.7 MMOL/L (3.5-5.1) Chloride Level 100 MMOL/L (98-107) Carbon Dioxide Level 23 MMOL/L (21-32) Anion Gap 9 mmol/L (5-15) Blood Urea Nitrogen 18 mg/dL (7-18) Creatinine 1.2 MG/DL (0.55-1.30) Estimat Glomerular Filtration Rate > 60 mL/min (>60) Glucose Level 95 MG/DL (74-106) Calcium Level 7.8 MG/DL (8.5-10.1) L Total Bilirubin 0.4 MG/DL (0.2-1.0) Aspartate Amino Transf (AST/SGOT) 33 U/L (15-37) Alanine Aminotransferase (ALT/SGPT) 27 U/L (12-78) Alkaline Phosphatase 39 U/L (46-116) L Total Protein 5.7 G/DL (6.4-8.2) #L Albumin 2.6 G/DL (3.4-5.0) L Globulin 3.1 g/dL Albumin/Globulin Ratio 0.8 (1.0-2.7) L Helicobacter pylori IgG Antibody Pending Helicobacter pylori IgA Antibody Pending Helicobacter pylori IgM Antibody Pending Microbiology Date/Time Source Procedure Growth Status 09/09/17 16:03 Abdomen Gram Stain - Final Resulted 09/09/17 16:03 Abdomen Aerobic Culture - Preliminary NO GROWTH Resulted 09/09/17 16:03 Abdomen Anaerobic Culture - Preliminary Resulted Height (Feet): 5 Height (Inches): 11.00 Weight (Pounds): 169 Medications Current Medications Medications (Trade) Dose Ordered Sig/Tisha Route PRN Reason Start Time Stop Time Status Last Admin Dose Admin Acetaminophen (Tylenol) 650 mg Q4H PRN RECTAL FEVER (temp>100.5F) 09/09/17 18:00 10/09/17 17:59 Dextrose/ Electrolytes 1,000 ml @ 100 mls/hr Q10H IV 09/09/17 20:00 10/09/17 19:59 09/10/17 05:44 Diphenhydramine HCl (Benadryl) 12.5 mg Q6H PRN IVP Itching/Pruritis 09/09/17 18:00 10/09/17 17:59 Heparin Sodium (Porcine) (Heparin 5000 units/ml) 5,000 units EVERY 12 HOURS SUBQ 09/09/17 21:00 10/09/17 20:59 09/10/17 08:27 Hydromorphone HCl (Dilaudid) 0.5 mg Q3H PRN IVP Pain Score 1-3 09/09/17 18:00 09/16/17 17:59 Ketorolac Tromethamine (Toradol 30mg) 15 mg Q6H PRN IV Moderate Pain (Pain Scale 4-6) 09/09/17 18:00 09/14/17 17:59 Morphine Sulfate (Morphine Sulfate) 4 mg Q4H PRN IVP Severe Pain (Pain Scale 7-10) 09/09/17 18:00 09/16/17 17:59 09/10/17 10:12 Ondansetron HCl (Zofran) 4 mg Q6H PRN IVP Nausea & Vomiting 09/09/17 18:00 10/09/17 17:59 Pantoprazole (Protonix) 40 mg Q12HR IVP 09/09/17 21:00 10/09/17 20:59 09/10/17 08:26 Piperacillin Sod/ Tazobactam Sod 3.375 gm/Sodium Chloride 110 ml @ 27.5 mls/hr EVERY 8 HOURS IVPB 09/09/17 22:00 09/14/17 21:59 09/10/17 13:20 Assessment/Plan Assessment/Plan Abx: Ancef x1 09/09 Zosyn 09/09- Assessment: Perforated duodenal ulcer -s/p exploratory laparotomy, antrectomy, gastrojejunostomy (Billroth 2 procedure) 09/09 -OR cx NTD -CT abd/p: Evidence of a perforation of a hollow viscus. Moderate free air is in the upper abdomen. Moderate free fluid. There is dilatation of the stomach with apparent narrowing in the first portion of duodenum with suspicion of a mucosal ulcer. Suspect this is the area of perforation due to [place] ulceration or ulcerative tumor. Leukocytosis, improving- 2ry to above -afebrile HAM, improving Plan: -Continue sushant-op Zosyn #2 -f/u cx -Monitor CBC/BMP, temperatures -wound care -aspiration precautions -Sx f/u Thank you for this consultation. Will continue to follow along with you. Discussed with AYO. Belkys Farrell M.D. September 10, 2017 15:15
--- NOTE | 2017-09-10 15:58 | Cardiology Report ---
APPROVED REPORT EKG Measurement Heart [id number] DC [id number] Normal sinus rhythm Biatrial enlargement Left ventricular hypertrophy Cannot rule out Septal infarct, age undetermined Abnormal ECG
[2017-09-10 16:00] VITALS: BP 132/90
--- NOTE | 2017-09-10 16:06 | General Progress Note ---
Assessment/Plan Problem List: (1) Perforated ulcer ICD Codes: K27.5 - Chronic or unspecified peptic ulcer, site unspecified, with perforation SNOMED: 54037604 (2) Severe sepsis ICD Codes: A41.9 - Sepsis, unspecified organism; R65.20 - Severe sepsis without septic shock SNOMED: 90398549 (3) Free intraperitoneal air ICD Codes: K66.8 - Other specified disorders of peritoneum SNOMED: 13943919 (4) Perforated abdominal viscus SNOMED: 253777392 (5) Abdominal pain ICD Codes: R10.9 - Unspecified abdominal pain SNOMED: 41531604 Status: unchanged Assessment/Plan ot pt dit abx pain control gi sx f/u cbc bmp am Subjective Constitutional: Reports: weakness Allergies: Coded Allergies: No Known Allergies (Unverified , 09/09/17) All Systems: reviewed and negative except above Subjective ng lethargic in bed Objective Last 24 Hour Vital Signs Date Time Temp Pulse Resp B/P (MAP) Pulse Ox O2 Delivery O2 Flow Rate FiO2 09/10/17 12:00 98.1 96 20 142/83 100 Nasal Cannula 3.0 98.1 09/10/17 12:00 77 09/10/17 10:38 210.2 89 20 100 09/10/17 08:00 86 09/10/17 08:00 97.3 82 20 129/80 100 Nasal Cannula 3.0 97.3 09/10/17 04:00 99.0 89 20 130/87 100 Room Air 99.0 09/10/17 03:47 93 09/10/17 00:00 98.6 95 20 137/88 100 Room Air 98.6 09/09/17 23:50 78 09/09/17 20:30 80 09/09/17 20:00 97.2 67 16 153/92 100 Room Air 97.2 09/09/17 19:10 97.0 67 16 148/91 99 Nasal Cannula 3.0 97.0 09/09/17 19:00 64 16 147/93 100 Nasal Cannula 3.0 09/09/17 18:43 64 16 147/93 100 Simple Mask 8.0 09/09/17 18:30 63 16 147/96 100 Simple Mask 8.0 09/09/17 18:19 64 16 143/98 100 Simple Mask 8.0 09/09/17 18:14 66 16 151/98 100 Simple Mask 8.0 09/09/17 18:10 207.3 66 16 100 09/09/17 18:09 97.4 66 16 140/94 100 Simple Mask 8.0 97.4 Intake and Output 09/09/17 09/10/17 19:00 07:00 Intake Total 600 ml 1273.98 ml Output Total 200 ml 505 ml Balance 400 ml 768.98 ml Intake Oral 0 ml IV Total 600 ml 1273.98 ml Output Urine Total 150 ml 250 ml Gastric Drainage Total 10 ml Drainage Total 245 ml Estimated Blood Loss 50 ml Laboratory Tests 09/10/17 07:30: White Blood Count 15.9H, Red Blood Count 3.98L, Hemoglobin 13.1L, Hematocrit 36.2L, Mean Corpuscular Volume 91, Mean Corpuscular Hemoglobin 32.9H, Mean Corpuscular Hemoglobin Concent 36.1H, Red Cell Distribution Width 11.0L, Platelet Count 145L, Mean Platelet Volume 7.7, Neutrophils (%) (Auto) , Lymphocytes (%) (Auto) , Monocytes (%) (Auto) , Eosinophils (%) (Auto) , Basophils (%) (Auto) , Differential Total Cells Counted 100, Neutrophils % ( Manual) 84H, Lymphocytes % (Manual) 8L, Monocytes % (Manual) 3, Eosinophils % ( Manual) 0, Basophils % (Manual) 0, Band Neutrophils 5, Platelet Estimate DecreasedL, Platelet Morphology Normal, Red Blood Cell Morphology Normal, Sodium Level 131L, Potassium Level 3.7, Chloride Level 100, Carbon Dioxide Level 23, Anion Gap 9, Blood Urea Nitrogen 18, Creatinine 1.2, Estimat Glomerular Filtration Rate > 60, Glucose Level 95, Calcium Level 7.8L, Total Bilirubin 0.4, Aspartate Amino Transf (AST/SGOT) 33, Alanine Aminotransferase ( ALT/SGPT) 27, Alkaline Phosphatase 39L, Total Protein 5.7#L, Albumin 2.6L, Globulin 3.1, Albumin/Globulin Ratio 0.8L, Helicobacter pylori IgG Antibody [ Pending], Helicobacter pylori IgA Antibody [Pending], Helicobacter pylori IgM Antibody [Pending] Height (Feet): 5 Height (Inches): 11.00 Weight (Pounds): 169 General Appearance: lethargic EENT: normal ENT inspection Neck: normal alignment Cardiovascular: normal peripheral pulses, normal rate, regular rhythm Respiratory/Chest: chest wall non-tender, lungs clear, normal breath sounds Abdomen: hypoactive bowel sounds, distended Extremities: normal inspection Edema: no edema noted Arm (L), no edema noted Arm (R), no edema noted Leg (L), no edema noted Leg (R), no edema noted Pedal (L), no edema noted Pedal (R), no edema noted Generalized Neurologic: responsive, motor weakness Skin: normal pigmentation, warm/dry Real Ortiz DO September 10, 2017 16:06
[2017-09-10] MEDS ORDERED: Tubing IV Secondary IV ONE (19:55)
[2017-09-10] MEDS ORDERED: NS 275ml ONE (19:55)
[2017-09-10 20:00] VITALS: BP 131/91
--- NOTE | 2017-09-10 20:43 | Cardiology Progress Note ---
Assessment/Plan Assessment/Plan The patient is seen and examined, full consult note will be dictated. Objective Last 24 Hour Vital Signs Date Time Temp Pulse Resp B/P (MAP) Pulse Ox O2 Delivery O2 Flow Rate FiO2 09/10/17 16:00 80 09/10/17 16:00 98.6 85 20 132/90 100 Nasal Cannula 3.0 98.6 09/10/17 12:00 98.1 96 20 142/83 100 Nasal Cannula 3.0 98.1 09/10/17 12:00 77 09/10/17 10:38 210.2 89 20 100 09/10/17 08:00 86 09/10/17 08:00 97.3 82 20 129/80 100 Nasal Cannula 3.0 97.3 09/10/17 04:00 99.0 89 20 130/87 100 Room Air 99.0 09/10/17 03:47 93 09/10/17 00:00 98.6 95 20 137/88 100 Room Air 98.6 09/09/17 23:50 78 Intake and Output 09/09/17 09/10/17 19:00 07:00 Intake Total 600 ml 1273.98 ml Output Total 200 ml 505 ml Balance 400 ml 768.98 ml Intake Oral 0 ml IV Total 600 ml 1273.98 ml Output Urine Total 150 ml 250 ml Gastric Drainage Total 10 ml Drainage Total 245 ml Estimated Blood Loss 50 ml Laboratory Tests Test 09/10/17 07:30 White Blood Count 15.9 K/UL (4.8-10.8) H Red Blood Count 3.98 M/UL (4.70-6.10) L Hemoglobin 13.1 G/DL (14.2-18.0) L Hematocrit 36.2 % (42.0-52.0) L Mean Corpuscular Volume 91 FL (80-99) Mean Corpuscular Hemoglobin 32.9 PG (27.0-31.0) H Mean Corpuscular Hemoglobin Concent 36.1 G/DL (32.0-36.0) H Red Cell Distribution Width 11.0 % (11.6-14.8) L Platelet Count 145 K/UL (150-450) L Mean Platelet Volume 7.7 FL (6.5-10.1) Neutrophils (%) (Auto) % (45.0-75.0) Lymphocytes (%) (Auto) % (20.0-45.0) Monocytes (%) (Auto) % (1.0-10.0) Eosinophils (%) (Auto) % (0.0-3.0) Basophils (%) (Auto) % (0.0-2.0) Differential Total Cells Counted 100 Neutrophils % (Manual) 84 % (45-75) H Lymphocytes % (Manual) 8 % (20-45) L Monocytes % (Manual) 3 % (1-10) Eosinophils % (Manual) 0 % (0-3) Basophils % (Manual) 0 % (0-2) Band Neutrophils 5 % (0-8) Platelet Estimate Decreased L Platelet Morphology Normal Red Blood Cell Morphology Normal Sodium Level 131 MMOL/L (136-145) L Potassium Level 3.7 MMOL/L (3.5-5.1) Chloride Level 100 MMOL/L (98-107) Carbon Dioxide Level 23 MMOL/L (21-32) Anion Gap 9 mmol/L (5-15) Blood Urea Nitrogen 18 mg/dL (7-18) Creatinine 1.2 MG/DL (0.55-1.30) Estimat Glomerular Filtration Rate > 60 mL/min (>60) Glucose Level 95 MG/DL (74-106) Calcium Level 7.8 MG/DL (8.5-10.1) L Total Bilirubin 0.4 MG/DL (0.2-1.0) Aspartate Amino Transf (AST/SGOT) 33 U/L (15-37) Alanine Aminotransferase (ALT/SGPT) 27 U/L (12-78) Alkaline Phosphatase 39 U/L (46-116) L Total Protein 5.7 G/DL (6.4-8.2) #L Albumin 2.6 G/DL (3.4-5.0) L Globulin 3.1 g/dL Albumin/Globulin Ratio 0.8 (1.0-2.7) L Helicobacter pylori IgG Antibody Pending Helicobacter pylori IgA Antibody Pending Helicobacter pylori IgM Antibody Pending Microbiology Date/Time Source Procedure Growth Status 09/09/17 16:03 Abdomen Gram Stain - Final Resulted 09/09/17 16:03 Abdomen Aerobic Culture - Preliminary NO GROWTH Resulted 09/09/17 16:03 Abdomen Anaerobic Culture - Preliminary Resulted Mayur Scott MD September 10, 2017 20:43
--- NOTE | 2017-09-10 20:45 | Operative Note - Dictated ---
DATE OF OPERATION: 09/10/2007 PREOPERATIVE DIAGNOSIS: Perforated abdominal viscus. POSTOPERATIVE DIAGNOSIS: Large perforated pre-pyloric ulcer causing gastric outlet obstruction. OPERATION PERFORMED: 1. Exploratory laparotomy. 2. Antrectomy with gastrojejunostomy Billroth II procedure. 3. Abdominal washout. SURGEON: Yury Pittman M.D. SAP SENIOR DEVELOPER: None. ANESTHESIOLOGIST: Walter Park M.D. 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 ESTIMATED BLOOD LOSS: 100 mL. IV FLUIDS: Please see anesthesia records. WOUND CLASSIFICATION: Class III. DRAINS: Jett-Guillermo drain x1. SPECIMENS: Antrectomy with perforated ulcer. COUNTS: Sponge and needle count correct x2. ANTIBIOTICS: The patient was given intravenous Zosyn 1 hour prior to cut time. INDICATIONS FOR PROCEDURE: This is a 56-year-old male, who presented to the emergency department with worsening abdominal pain. The patient states that few days ago, abdominal pain began and has progressively worsened to the point that he could barely walk and required emergency medical assistance. The patient states that he initially thought it would wear it off and it would improve on its own, but his pain progressed. He decided to seek medical attention. In further detail, the patient states that he has been losing some weight for sometime now and had vague abdominal pain and has not been able to tolerate his regular diet for few months. A CT scan in the emergency department was performed and identified pneumoperitoneum as well as free abdominal fluid with likely perforation of the upper gastrointestinal tract. Surgery called, at which time, the patient was noted to have a leukocytosis, be septic, and have a rigid abdomen with diffuse peritonitis. Emergent exploration was recommended and indicated. Risks, benefits, and alternatives were discussed with the patient in detail prior to entering the operating room. OPERATIVE NOTE: The patient was taken to the operating room and placed on the operating table in supine position with bilateral arms out. All bony prominences were well padded. SCDs were placed. Preoperative time-out was taken in identifying the patient, procedure, operative staff, and surgical staff. General anesthesia was induced and the patient was intubated. Iniguez catheter was inserted under sterile technique. NG tube was inserted and over 1.5 liters of contents were evacuated initially. The abdomen was then clipped, prepped, and draped in a standard surgical fashion. A midline incision was made from the xiphoid down to just below the umbilicus. Incision was carried down through the fascia using electrocautery and blunt dissection as necessary. The fascia was incised and opened. The entry into the abdomen was obtained without complication. Upon initial entry into the abdomen, a significant amount of succus was evacuated. After succus particle and debris were evacuated, the retractors were placed and the abdomen was inspected. We began by identifying the stomach at which time a large perforated ulcer in the anterior pre-pyloric location was identified. The pylorus was greater than 50% of the anterior wall of the pre-pyloric region. A Republic clamp was placed as there was persistent leakage. The remaining bowel was inspected. A generous kocherization of the duodenum was performed and no duodenal abnormalities were identified. The ligament of Treitz was identified and the bowel run from the ligament of Treitz down to the ileocecal valve and no abnormalities in the small bowel identified. The appendix was noted to be normal. The cecum ascending transverse and descending colon as well as the sigmoid colon were identified and noted to be otherwise normal as well. At this time, the ulcer was evaluated and given the size of the ulcer and the amount of gastric outlet obstruction it was causing and inflammation around the prepyloric region, the decision was made that a Tello patch would not be appropriate and formal antrectomy with either Billroth 1 or 2 would be appropriate. The gastrocolic ligament was identified and divided in the stomach and the transverse colon . The lesser sac was identified and the remainder of the stomach was noted to be normal. At this time, the NG tube was palpated and there was still significant amount of debridement in the stomach, which was evacuated with persistent manipulation of NG tube. Once this was complete, a proximal and distal area of resection was identified for the antrectomy. The right gastroepiploic was identified and ligated and divided at the level of the proposed resection approximately 5 to 6 cm proximal to the ulcer. A linear AURELIANO 75 mm stapler was then used in two sequential loads to divide the stomach at the gastric body. Following this, using a Thunderbeat energy device, the dissection was carried distally to the pylorus at which time, pylorus was mobilized with the prior kocherization. The first portion of the duodenum could be identified. Decision was made to perform the distal division just at the level of the pylorus. A window was made in the first portion of the duodenum just at the level of the pylorus and a linear AURELIANO stapler was used to divide the bowel. Following this, the remaining mesentery was divided using 3-0 silk pop-offs and LigaSure energy device. The specimen was then sent to pathology for review. The duodenal stump was then oversewn with 3-0 Lembert sutures and good hemostasis was identified. At this time, the body of the remaining portions of the stomach including body were identified and there would be too much tension for B1, so decision was made to proceed with the B2. The abdomen was washed out with copious amounts of sterile saline until clear in all quadrants. Once this was completed, decision was made to begin the anastomosis. The ligament of Treitz was then identified and the portion of the proximal jejunum was easily mobilized to the portion of the gastric body was brought together. A gastrotomy with enterotomy were made following positioning of a linear stapler for anastomosis. A hwvs-ny-dtpi anastomosis was performed on the anterior surface of the stomach and the lateral jejunal wall. Following this, the remaining enterotomy defect was closed in a two-layer fashion beginning with a 2-0 Vicryl running suture followed by 3-0 Vicryl Lembert interrupted sutures. The staple line was then reinforced with Lembert interrupted sutures on the anterior and posterior aspect. At this time, decision was made to leave a drain around the duodenal stump and gastric anastomosis. A 18-Bahamian Austin drain was placed through the right upper quadrant and placed in the gastric and duodenal bed. Following this, good hemostasis was ensured and began the conclusion of our procedure. The bowel was allowed to drop into its anatomic position followed by closure of the midline fascia using a #0 looped PDS suture. The wound was then irrigated and the skin closed using surgical skin tomas. The drain was placed to bulb suction. Dressings were applied. The patient tolerated the procedure well. NG tube was left in place after identification of its exact location intraoperatively and the patient was taken to the postanesthetic care unit in stable condition. Yury Pittman M.D. DR: GERDA JOB#: [id number] CC: PEDRO
[2017-09-10] MEDS ORDERED: Hydromorphone 0.5mg/0.5ml inj IVP PRN (21:00)
[2017-09-10] MEDS: Morphine Sulfate 4mg/ml Inj IVP PRN (21:04)
--- NOTE | 2017-09-10 21:45 | Consultation ---
DATE OF CONSULTATION: 09/10/2017 NEPHROLOGY CONSULTATION CONSULTING PHYSICIAN: Gogo Velázquez M.D. REFERRING PHYSICIAN: Real Ortiz D.O. REASON FOR CONSULTATION: Abnormal electrolytes and acute renal failure. HISTORY OF PRESENT ILLNESS: The patient is a 56-year-old male with no significant past medical history, who presented to emergency room at [facility] complaining of increasing abdominal pain with nausea and vomiting. In the ER, the patient had a CT of the abdomen and found to have free air in the abdominal cavity. The patient was taken to OR by Dr. Pittman and found to have a perforated duodenal ulcer. The NG tube was placed. The patient was also found to have a potassium of 2.5 in the ER, which was replaced. PAST MEDICAL HISTORY: None. PAST SURGICAL HISTORY: None. CURRENT MEDICATIONS: Medication reconciliation was reviewed. ALLERGIES: No known drug allergies. SOCIAL HISTORY: Denies any tobacco, alcohol, or drug use. FAMILY HISTORY: Noncontributory. PHYSICAL EXAMINATION: VITAL SIGNS: The patient has a temperature of 98 degrees, blood pressure of 131/94, and pulse rate of 86. HEAD AND NECK: No JVP. No LAD. No thyromegaly. Extraocular movement sintact. Pupils are reactive to light and accommodation. LUNGS: Clear to auscultation. CARDIAC: Regular rate and rhythm. S1 and S2. No murmur. No rub. ABDOMEN: Status post exploratory laparotomy and diffusely tender, guarding, and bowel sounds are decreased. EXTREMITIES: No edema. No clubbing. No cyanosis. LABORATORY DATA: Revealed WBC count of 15,000, hemoglobin of 13, hematocrit of 36, and platelet count of 145,000. Chemistry reveals sodium 131, improved from 128, potassium now is 3.1, chloride 100, bicarb 23, creatinine dropped from 1.4 to 1.2, and BUN is 18. His calcium is 7.8. AST and ALT are within normal limits. Total protein is 5.7. There is no UA. ASSESSMENT: 1. Hypovolemic hyponatremia. 2. Hypokalemia. 3. Acute renal failure, most likely acute tubular necrosis due to unstable hemodynamics. 4. Status post perforated duodenal ulcer. PLAN: Plan for the patient is to continue with IV fluid D5 half at 100 mL/hour post potassium replacement. I would obtain a UA. Check Is and Os. I would check the vitamin D, but most likely hypocalcemia is a result of hypoalbuminemia and malnutrition. I would monitor electrolytes closely. Again, I would like to thank, Dr. Real Ortiz, for allowing me to participate in the care of this patient. Gogo Velázquez M.D. DR: GERDA JOB#: [id number] CC:
[2017-09-10] MEDS ORDERED: Acetaminophen 650 MG SUPP RECTAL PRN (22:00)
[2017-09-10 22:57] LABS: APPEARANCE,URINE CLEAR; BILIRUBIN, URINE NEGATIVE (NEGATIVE); GLUCOSE, URINE (UA) NEGATIVE (NEGATIVE); KETONES,URINE NEGATIVE (NEGATIVE); LEUKOCYTE ESTERASE ,URINE NEGATIVE (NEGATIVE); NITRITE,URINE NEGATIVE (NEGATIVE); PH,URINE 6.5 (4.5-8.0); PROTEIN,URINE 2+ (NEGATIVE); UROBILINOGEN,URINE NORMAL MG/DL (0.0-1.0)
[2017-09-10 22:59] LABS: COLOR,URINE YELLOW
[2017-09-11] VITALS: BP 130/70
[2017-09-11] MEDS ORDERED: Ketorolac 30mg Inj IV PRN
[2017-09-11] MEDS ORDERED: DiphenhydrAMINE 50mg/ml Inj IVP PRN
[2017-09-11] MEDS: D5 1/2NS w/KCl 20mEq 1,000 ML IV SCH ×2 (02:32→14:47)
[2017-09-11] MEDS: Morphine Sulfate 4mg/ml Inj IVP PRN ×2 (02:32→08:36)
[2017-09-11] MEDS: Piperacillin/Tazobactam 3.375 GM in NS 110 ML IVPB SCH ×3 (05:43→21:30)
[2017-09-11 08:00] VITALS: BP 128/89
[2017-09-11] MEDS: Pantoprazole Inj IVP SCH ×2 (08:36→21:30)
[2017-09-11] MEDS: Heparin 5000 units/ml inj SUBQ SCH ×2 (08:52→21:00)
[2017-09-11 09:10] LABS: HEMATOCRIT 34.1 % (42.0-52.0); HEMOGLOBIN 12.1 G/DL (14.2-18.0); MEAN CORPUSCULAR VOLUME 92 FL (80-99); PLATELET COUNT 137 K/UL (150-450); RED BLOOD COUNT 3.69 M/UL (4.70-6.10); RED CELL DISTRIBUTION WIDTH 11.1 % (11.6-14.8); WHITE BLOOD COUNT 15.2 K/UL (4.8-10.8)
--- NOTE | 2017-09-11 09:11 | General Progress Note ---
Progress Note Progress Note Surgery: doing well. improving. pain controlled. no n/v/f/c. ng tube functional. good uop. ambulatory. afebrile, HD stable, labs pending exam benign. abd soft, mild distention, incision c/d/i -NPO -IV fluids -IV Abx -NG tube -Incentive spirometry -Ambulate and out of bed. Yury Pittman September 11, 2017 09:11
[2017-09-11 09:28] LABS: ANION GAP 7 mmol/L (5-15); BLOOD UREA NITROGEN 11 mg/dL (7-18); CALCIUM 8.1 MG/DL (8.5-10.1); CARBON DIOXIDE 25 MMOL/L (21-32); CHLORIDE 101 MMOL/L (98-107); POTASSIUM 3.5 MMOL/L (3.5-5.1); SODIUM 133 MMOL/L (136-145)
--- NOTE | 2017-09-11 11:02 | GI Progress Note ---
Assessment/Plan Problems: (1) Abdominal pain ICD Codes: R10.9 - Unspecified abdominal pain SNOMED: 43878137 (2) Perforated abdominal viscus SNOMED: 535909332 (3) Free intraperitoneal air ICD Codes: K66.8 - Other specified disorders of peritoneum SNOMED: 90204463 (4) Severe sepsis ICD Codes: A41.9 - Sepsis, unspecified organism; R65.20 - Severe sepsis without septic shock SNOMED: 31109674 (5) Perforated ulcer ICD Codes: K27.5 - Chronic or unspecified peptic ulcer, site unspecified, with perforation SNOMED: 43120003 Status: progressing, unchanged Status Narrative Discussed with Dr. Henry. Assessment/Plan s/p exploratory laparotomy, antrectomy, gastrojejunostomy (Billroth 2 procedure) hyperchromic anemia electrolyte imbalance fu surgical recs NPO + IVFs NGT to LIS pain mgmt zofran prn ppi IV fu labs outpatient GI procedures Subjective Gastrointestinal/Abdominal: Reports: abdominal pain Objective Last 24 Hour Vital Signs Date Time Temp Pulse Resp B/P (MAP) Pulse Ox O2 Delivery O2 Flow Rate FiO2 09/11/17 08:00 97.5 89 20 128/89 100 Room Air 97.5 09/11/17 04:00 09/11/17 03:02 98.2 09/11/17 02:32 98.2 09/11/17 00:00 98.2 89 18 130/70 98 Room Air 98.2 09/10/17 21:04 98.6 09/10/17 20:00 98.0 82 18 131/91 100 Room Air 98.0 09/10/17 16:00 80 09/10/17 16:00 98.6 85 20 132/90 100 Nasal Cannula 3.0 98.6 09/10/17 12:00 98.1 96 20 142/83 100 Nasal Cannula 3.0 98.1 09/10/17 12:00 77 Intake and Output 09/10/17 09/11/17 19:00 07:00 Intake Total 1407.64 ml 1037.5 ml Output Total 140 ml 1070 ml Balance 1267.64 ml -32.5 ml IV Total 1407.64 ml 1037.5 ml Output Urine Total 100 ml 600 ml Gastric Drainage Total 425 ml Drainage Total 40 ml 45 ml # Voids 2 Laboratory Tests Test 09/10/17 21:00 09/11/17 08:59 Urine Color Yellow Urine Appearance Clear Urine pH 6.5 (4.5-8.0) Urine Specific [place]agon 1.015 (1.005-1.035) Urine Protein 2+ (NEGATIVE) H Urine Glucose (UA) Negative (NEGATIVE) Urine Ketones Negative (NEGATIVE) Urine Occult Blood 3+ (NEGATIVE) H Urine Nitrite Negative (NEGATIVE) Urine Bilirubin Negative (NEGATIVE) Urine Urobilinogen Normal MG/DL (0.0-1.0) Urine Leukocyte Esterase Negative (NEGATIVE) Urine RBC 2-4 /HPF (0 - 0) H Urine WBC 0-2 /HPF (0 - 0) Urine Squamous Epithelial Cells None /LPF (NONE/OCC) Urine Bacteria Few /HPF (NONE) Urine Eosinophils None seen Urine Random Creatinine Pending Urine Random Microalbumin Pending Urine Random Total Protein 73 MG/DL (< 11.9) H Urine Random Sodium 105 mmol/L (20-110) Urine Microalbumin/Creatinine Ratio Pending White Blood Count 15.2 K/UL (4.8-10.8) H Red Blood Count 3.69 M/UL (4.70-6.10) L Hemoglobin 12.1 G/DL (14.2-18.0) L Hematocrit 34.1 % (42.0-52.0) L Mean Corpuscular Volume 92 FL (80-99) Mean Corpuscular Hemoglobin 32.9 PG (27.0-31.0) H Mean Corpuscular Hemoglobin Concent 35.5 G/DL (32.0-36.0) Red Cell Distribution Width 11.1 % (11.6-14.8) L Platelet Count 137 K/UL (150-450) L Mean Platelet Volume 8.3 FL (6.5-10.1) Neutrophils (%) (Auto) % (45.0-75.0) Lymphocytes (%) (Auto) % (20.0-45.0) Monocytes (%) (Auto) % (1.0-10.0) Eosinophils (%) (Auto) % (0.0-3.0) Basophils (%) (Auto) % (0.0-2.0) Differential Total Cells Counted 100 Neutrophils % (Manual) 88 % (45-75) H Lymphocytes % (Manual) 6 % (20-45) L Monocytes % (Manual) 5 % (1-10) Eosinophils % (Manual) 0 % (0-3) Basophils % (Manual) 0 % (0-2) Band Neutrophils 1 % (0-8) Platelet Estimate Decreased L Platelet Morphology Normal Red Blood Cell Morphology Normal Sodium Level 133 MMOL/L (136-145) L Potassium Level 3.5 MMOL/L (3.5-5.1) Chloride Level 101 MMOL/L (98-107) Carbon Dioxide Level 25 MMOL/L (21-32) Anion Gap 7 mmol/L (5-15) Blood Urea Nitrogen 11 mg/dL (7-18) Creatinine 1.0 MG/DL (0.55-1.30) Estimat Glomerular Filtration Rate > 60 mL/min (>60) Glucose Level 114 MG/DL (74-106) H Calcium Level 8.1 MG/DL (8.5-10.1) L Phosphorus Level 2.0 MG/DL (2.5-4.9) L Magnesium Level 1.9 MG/DL (1.8-2.4) Height (Feet): 5 Height (Inches): 11.00 Weight (Pounds): 169 General Appearance: WD/WN, no apparent distress, alert Cardiovascular: normal rate Respiratory/Chest: normal breath sounds, no respiratory distress Abdominal Exam: normal bowel sounds, non tender, soft, other - NGT Extremities: normal range of motion, non-tender Walter Molina NP September 11, 2017 11:02
[2017-09-11 12:00] VITALS: BP 126/74
[2017-09-11] MEDS ORDERED: Sodium Phosphate 30 MM in NS 275 ML IVPB ONE (13:00)
--- NOTE | 2017-09-11 13:10 | General Progress Note ---
Assessment/Plan Problem List: (1) Perforated ulcer ICD Codes: K27.5 - Chronic or unspecified peptic ulcer, site unspecified, with perforation SNOMED: 21733507 (2) Severe sepsis ICD Codes: A41.9 - Sepsis, unspecified organism; R65.20 - Severe sepsis without septic shock SNOMED: 68216042 (3) Free intraperitoneal air ICD Codes: K66.8 - Other specified disorders of peritoneum SNOMED: 39208461 (4) Perforated abdominal viscus SNOMED: 991761641 (5) Abdominal pain ICD Codes: R10.9 - Unspecified abdominal pain SNOMED: 29270191 Status: progressing Assessment/Plan ot pt dit abx pain control gi sx f/u cbc bmp am Subjective Constitutional: Reports: weakness Allergies: Coded Allergies: No Known Allergies (Unverified , 09/09/17) All Systems: reviewed and negative except above Subjective ng lethargic in bed Objective Last 24 Hour Vital Signs Date Time Temp Pulse Resp B/P (MAP) Pulse Ox O2 Delivery O2 Flow Rate FiO2 09/11/17 08:00 97.5 89 20 128/89 100 Room Air 97.5 09/11/17 04:00 09/11/17 03:02 98.2 09/11/17 02:32 98.2 09/11/17 00:00 98.2 89 18 130/70 98 Room Air 98.2 09/10/17 21:04 98.6 09/10/17 20:00 98.0 82 18 131/91 100 Room Air 98.0 09/10/17 16:00 80 09/10/17 16:00 98.6 85 20 132/90 100 Nasal Cannula 3.0 98.6 Intake and Output 09/10/17 09/11/17 19:00 07:00 Intake Total 1407.64 ml 1037.5 ml Output Total 140 ml 1070 ml Balance 1267.64 ml -32.5 ml IV Total 1407.64 ml 1037.5 ml Output Urine Total 100 ml 600 ml Gastric Drainage Total 425 ml Drainage Total 40 ml 45 ml # Voids 2 Laboratory Tests 09/10/17 21:00: Urine Color Yellow, Urine Appearance Clear, Urine pH 6.5, Urine Specific [place] 1.015, Urine Protein 2+H, Urine Glucose (UA) Negative, Urine Ketones Negative, Urine Occult Blood 3+H, Urine Nitrite Negative, Urine Bilirubin Negative, Urine Urobilinogen Normal, Urine Leukocyte Esterase Negative, Urine RBC 2-4H, Urine WBC 0-2, Urine Squamous Epithelial Cells None, Urine Bacteria Few, Urine Eosinophils None seen, Urine Random Creatinine [Pending], Urine Random Microalbumin [Pending], Urine Random Total Protein 73H, Urine Random Sodium 105, Urine Microalbumin/Creatinine Ratio [Pending] 09/11/17 08:59: White Blood Count 15.2H, Red Blood Count 3.69L, Hemoglobin 12.1L, Hematocrit 34.1L, Mean Corpuscular Volume 92, Mean Corpuscular Hemoglobin 32.9H, Mean Corpuscular Hemoglobin Concent 35.5, Red Cell Distribution Width 11.1L, Platelet Count 137L, Mean Platelet Volume 8.3, Neutrophils (%) (Auto) , Lymphocytes (%) (Auto) , Monocytes (%) (Auto) , Eosinophils (%) (Auto) , Basophils (%) (Auto) , Differential Total Cells Counted 100, Neutrophils % ( Manual) 88H, Lymphocytes % (Manual) 6L, Monocytes % (Manual) 5, Eosinophils % ( Manual) 0, Basophils % (Manual) 0, Band Neutrophils 1, Platelet Estimate DecreasedL, Platelet Morphology Normal, Red Blood Cell Morphology Normal, Sodium Level 133L, Potassium Level 3.5, Chloride Level 101, Carbon Dioxide Level 25, Anion Gap 7, Blood Urea Nitrogen 11, Creatinine 1.0, Estimat Glomerular Filtration Rate > 60, Glucose Level 114H, Calcium Level 8.1L, Phosphorus Level 2.0L, Magnesium Level 1.9 Height (Feet): 5 Height (Inches): 11.00 Weight (Pounds): 169 General Appearance: lethargic EENT: normal ENT inspection Neck: normal alignment Cardiovascular: normal peripheral pulses, normal rate, regular rhythm Respiratory/Chest: chest wall non-tender, lungs clear, normal breath sounds Abdomen: soft, hypoactive bowel sounds Extremities: normal inspection Edema: no edema noted Arm (L), no edema noted Arm (R), no edema noted Leg (L), no edema noted Leg (R), no edema noted Pedal (L), no edema noted Pedal (R), no edema noted Generalized Neurologic: responsive, motor weakness Skin: normal pigmentation, warm/dry Real Ortiz Angus DO September 11, 2017 13:10
--- NOTE | 2017-09-11 14:04 | Pulmonology Progress Note ---
Assessment/Plan Problems: (1) Severe sepsis (2) Perforated ulcer Assessment/Plan iv fluids npo continue abx pt/ot check electrolytes Subjective ROS Limited/Unobtainable: No Constitutional: Reports: no symptoms HEENT: Repors: no symptoms Allergies: Coded Allergies: No Known Allergies (Unverified , 09/09/17) Objective Last 24 Hour Vital Signs Date Time Temp Pulse Resp B/P (MAP) Pulse Ox O2 Delivery O2 Flow Rate FiO2 09/11/17 08:00 97.5 89 20 128/89 100 Room Air 97.5 09/11/17 04:00 09/11/17 03:02 98.2 09/11/17 02:32 98.2 09/11/17 00:00 98.2 89 18 130/70 98 Room Air 98.2 09/10/17 21:04 98.6 09/10/17 20:00 98.0 82 18 131/91 100 Room Air 98.0 09/10/17 16:00 80 09/10/17 16:00 98.6 85 20 132/90 100 Nasal Cannula 3.0 98.6 Intake and Output 09/10/17 09/11/17 19:00 07:00 Intake Total 1407.64 ml 1037.5 ml Output Total 140 ml 1070 ml Balance 1267.64 ml -32.5 ml IV Total 1407.64 ml 1037.5 ml Output Urine Total 100 ml 600 ml Gastric Drainage Total 425 ml Drainage Total 40 ml 45 ml # Voids 2 General Appearance: WD/WN HEENT: normocephalic, atraumatic Respiratory/Chest: chest wall non-tender, lungs clear, chest wall tender Abdomen: normal bowel sounds, soft, non tender Genitourinary: normal external genitalia Extremities: no clubbing Skin: no lesions Microbiology Date/Time Source Procedure Growth Status 09/09/17 11:45 Blood Blood Culture - Preliminary NO GROWTH AFTER 24 HOURS Resulted 09/09/17 11:40 Blood Blood Culture - Preliminary NO GROWTH AFTER 24 HOURS Resulted 09/09/17 16:03 Abdomen Gram Stain - Final Resulted 09/09/17 16:03 Abdomen Aerobic Culture - Preliminary NO GROWTH AFTER 24 HOURS Resulted 09/09/17 16:03 Abdomen Anaerobic Culture - Preliminary Resulted Laboratory Tests 09/10/17 21:00: Urine Color Yellow, Urine Appearance Clear, Urine pH 6.5, Urine Specific [place] 1.015, Urine Protein 2+H, Urine Glucose (UA) Negative, Urine Ketones Negative, Urine Occult Blood 3+H, Urine Nitrite Negative, Urine Bilirubin Negative, Urine Urobilinogen Normal, Urine Leukocyte Esterase Negative, Urine RBC 2-4H, Urine WBC 0-2, Urine Squamous Epithelial Cells None, Urine Bacteria Few, Urine Eosinophils None seen, Urine Random Creatinine [Pending], Urine Random Microalbumin [Pending], Urine Random Total Protein 73H, Urine Random Sodium 105, Urine Microalbumin/Creatinine Ratio [Pending] 09/11/17 08:59: White Blood Count 15.2H, Red Blood Count 3.69L, Hemoglobin 12.1L, Hematocrit 34.1L, Mean Corpuscular Volume 92, Mean Corpuscular Hemoglobin 32.9H, Mean Corpuscular Hemoglobin Concent 35.5, Red Cell Distribution Width 11.1L, Platelet Count 137L, Mean Platelet Volume 8.3, Neutrophils (%) (Auto) , Lymphocytes (%) (Auto) , Monocytes (%) (Auto) , Eosinophils (%) (Auto) , Basophils (%) (Auto) , Differential Total Cells Counted 100, Neutrophils % ( Manual) 88H, Lymphocytes % (Manual) 6L, Monocytes % (Manual) 5, Eosinophils % ( Manual) 0, Basophils % (Manual) 0, Band Neutrophils 1, Platelet Estimate DecreasedL, Platelet Morphology Normal, Red Blood Cell Morphology Normal, Sodium Level 133L, Potassium Level 3.5, Chloride Level 101, Carbon Dioxide Level 25, Anion Gap 7, Blood Urea Nitrogen 11, Creatinine 1.0, Estimat Glomerular Filtration Rate > 60, Glucose Level 114H, Calcium Level 8.1L, Phosphorus Level 2.0L, Magnesium Level 1.9 Current Medications Medications (Trade) Dose Ordered Sig/Tisha Route PRN Reason Start Time Stop Time Status Last Admin Dose Admin Acetaminophen (Tylenol) 650 mg Q4H PRN RECTAL FEVER (temp>100.5F) 09/10/17 22:00 10/09/17 17:59 Dextrose/ Electrolytes 1,000 ml @ 100 mls/hr Q10H IV 09/10/17 21:00 10/09/17 19:59 09/11/17 02:32 Diphenhydramine HCl (Benadryl) 12.5 mg Q6H PRN IVP Itching/Pruritis 09/11/17 00:00 10/09/17 17:59 Heparin Sodium (Porcine) (Heparin 5000 units/ml) 5,000 units EVERY 12 HOURS SUBQ 09/10/17 21:00 10/09/17 20:59 09/10/17 21:12 Hydromorphone HCl (Dilaudid) 0.5 mg Q3H PRN IVP Pain Score 1-3 09/10/17 21:00 09/16/17 17:59 Ketorolac Tromethamine (Toradol 30mg) 15 mg Q6H PRN IV Moderate Pain (Pain Scale 4-6) 09/11/17 00:00 09/14/17 17:59 Morphine Sulfate (Morphine Sulfate) 4 mg Q4H PRN IVP Severe Pain (Pain Scale 7-10) 09/10/17 22:00 09/16/17 17:59 09/11/17 08:36 Ondansetron HCl (Zofran) 4 mg Q6H PRN IVP Nausea & Vomiting 09/11/17 00:00 10/09/17 17:59 Pantoprazole (Protonix) 40 mg Q12HR IVP 09/10/17 21:00 10/09/17 20:59 09/11/17 08:36 Piperacillin Sod/ Tazobactam Sod 3.375 gm/Sodium Chloride 110 ml @ 27.5 mls/hr EVERY 8 HOURS IVPB 09/10/17 22:00 09/15/17 21:59 09/11/17 05:43 Sodium Phosphate 30 mm/Sodium Chloride 285 ml @ 47.5 mls/hr ONCE ONCE IVPB 09/11/17 13:00 09/11/17 18:59 09/11/17 13:32 Gem Ashley MD September 11, 2017 14:04
[2017-09-11 16:00] VITALS: BP 127/80
--- NOTE | 2017-09-11 18:11 | Nephrology Progress Note ---
Assessment/Plan Assessment 1. Hypovolemic hyponatremia. 2. Hypokalemia. 3. Acute renal failure, 4. Status post perforated duodenal ulcer Plan plan continue ivf monitoring electrolyte avoid NSAID replace electrolyte Subjective Constitutional: Reports: no symptoms HEENT: Reports: no symptoms Genitourinary: Reports: no symptoms Neurologic/Psychiatric: Reports: no symptoms Objective Objective Last 24 Hour Vital Signs Date Time Temp Pulse Resp B/P (MAP) Pulse Ox O2 Delivery O2 Flow Rate FiO2 09/11/17 16:00 98.1 88 18 127/80 100 Room Air 98.1 09/11/17 12:00 97.8 77 18 126/74 100 Room Air 97.8 09/11/17 08:00 97.5 89 20 128/89 100 Room Air 97.5 09/11/17 04:00 09/11/17 03:02 98.2 09/11/17 02:32 98.2 09/11/17 00:00 98.2 89 18 130/70 98 Room Air 98.2 09/10/17 21:04 98.6 09/10/17 20:00 98.0 82 18 131/91 100 Room Air 98.0 Intake and Output 09/10/17 09/11/17 19:00 07:00 Intake Total 1407.64 ml 1037.5 ml Output Total 140 ml 1070 ml Balance 1267.64 ml -32.5 ml IV Total 1407.64 ml 1037.5 ml Output Urine Total 100 ml 600 ml Gastric Drainage Total 425 ml Drainage Total 40 ml 45 ml # Voids 2 Laboratory Tests 09/10/17 21:00: Urine Color Yellow, Urine Appearance Clear, Urine pH 6.5, Urine Specific [place] 1.015, Urine Protein 2+H, Urine Glucose (UA) Negative, Urine Ketones Negative, Urine Occult Blood 3+H, Urine Nitrite Negative, Urine Bilirubin Negative, Urine Urobilinogen Normal, Urine Leukocyte Esterase Negative, Urine RBC 2-4H, Urine WBC 0-2, Urine Squamous Epithelial Cells None, Urine Bacteria Few, Urine Eosinophils None seen, Urine Random Creatinine [Pending], Urine Random Microalbumin [Pending], Urine Random Total Protein 73H, Urine Random Sodium 105, Urine Microalbumin/Creatinine Ratio [Pending] 09/11/17 08:59: White Blood Count 15.2H, Red Blood Count 3.69L, Hemoglobin 12.1L, Hematocrit 34.1L, Mean Corpuscular Volume 92, Mean Corpuscular Hemoglobin 32.9H, Mean Corpuscular Hemoglobin Concent 35.5, Red Cell Distribution Width 11.1L, Platelet Count 137L, Mean Platelet Volume 8.3, Neutrophils (%) (Auto) , Lymphocytes (%) (Auto) , Monocytes (%) (Auto) , Eosinophils (%) (Auto) , Basophils (%) (Auto) , Differential Total Cells Counted 100, Neutrophils % ( Manual) 88H, Lymphocytes % (Manual) 6L, Monocytes % (Manual) 5, Eosinophils % ( Manual) 0, Basophils % (Manual) 0, Band Neutrophils 1, Platelet Estimate DecreasedL, Platelet Morphology Normal, Red Blood Cell Morphology Normal, Sodium Level 133L, Potassium Level 3.5, Chloride Level 101, Carbon Dioxide Level 25, Anion Gap 7, Blood Urea Nitrogen 11, Creatinine 1.0, Estimat Glomerular Filtration Rate > 60, Glucose Level 114H, Calcium Level 8.1L, Phosphorus Level 2.0L, Magnesium Level 1.9 Height (Feet): 5 Height (Inches): 11.00 Weight (Pounds): 169 Objective HEAD AND NECK: No JVP. No LAD. No thyromegaly. Extraocular movement sintact. Pupils are reactive to light and accommodation. LUNGS: Clear to auscultation. CARDIAC: Regular rate and rhythm. S1 and S2. No murmur. No rub. ABDOMEN: Status post exploratory laparotomy and diffusely tender, guarding, and bowel sounds are decreased. EXTREMITIES: No edema. No clubbing. No cyanosis. Gogo Velázquez MD September 11, 2017 18:11
--- NOTE | 2017-09-11 19:01 | Infectious Diseases Prog Note ---
Assessment/Plan Assessment/Plan Abx: Ancef x1 09/09 Zosyn 09/09- Assessment: Perforated duodenal ulcer -s/p exploratory laparotomy, antrectomy, gastrojejunostomy (Billroth 2 procedure) 09/09 -OR cx NTD -CT abd/p: Evidence of a perforation of a hollow viscus. Moderate free air is in the upper abdomen. Moderate free fluid. There is dilatation of the stomach with apparent narrowing in the first portion of duodenum with suspicion of a mucosal ulcer. Suspect this is the area of perforation due to [place] ulceration or ulcerative tumor. Leukocytosis, improving/stable- 2ry to above -afebrile -u/a neg HAM, improving Plan: -Continue sushant-op Zosyn #3/5 -f/u cx -Monitor CBC/BMP, temperatures -wound care -aspiration precautions -Sx f/u -CXR am Thank you for this consultation. Will continue to follow along with you. Discussed with RN. Subjective Allergies: Coded Allergies: No Known Allergies (Unverified , 09/09/17) Subjective afebrile WBC stable at 15 Objective Vital Signs Last 24 Hour Vital Signs Date Time Temp Pulse Resp B/P (MAP) Pulse Ox O2 Delivery O2 Flow Rate FiO2 09/11/17 16:00 98.1 88 18 127/80 100 Room Air 98.1 09/11/17 12:00 97.8 77 18 126/74 100 Room Air 97.8 09/11/17 08:00 97.5 89 20 128/89 100 Room Air 97.5 09/11/17 04:00 09/11/17 03:02 98.2 09/11/17 02:32 98.2 09/11/17 00:00 98.2 89 18 130/70 98 Room Air 98.2 09/10/17 21:04 98.6 09/10/17 20:00 98.0 82 18 131/91 100 Room Air 98.0 Height (Feet): 5 Height (Inches): 11.00 Weight (Pounds): 169 Objective General Appearance: WD/WN Lines, tubes and drains: peripheral HEENT: normocephalic, anicteric Neck: non-tender, normal alignment Respiratory/Chest: chest wall non-tender, lungs clear Breasts: no masses Cardiovascular/Chest: normal peripheral pulses Abdomen: surgical dressings in place Microbiology Date/Time Source Procedure Growth Status 09/09/17 11:45 Blood Blood Culture - Preliminary NO GROWTH AFTER 24 HOURS Resulted 09/09/17 11:40 Blood Blood Culture - Preliminary NO GROWTH AFTER 24 HOURS Resulted 09/09/17 16:03 Abdomen Gram Stain - Final Resulted 09/09/17 16:03 Abdomen Aerobic Culture - Preliminary NO GROWTH AFTER 24 HOURS Resulted 09/09/17 16:03 Abdomen Anaerobic Culture - Preliminary Resulted Laboratory Tests Test 09/10/17 21:00 09/11/17 08:59 Urine Color Yellow Urine Appearance Clear Urine pH 6.5 (4.5-8.0) Urine Specific [place] 1.015 (1.005-1.035) Urine Protein 2+ (NEGATIVE) H Urine Glucose (UA) Negative (NEGATIVE) Urine Ketones Negative (NEGATIVE) Urine Occult Blood 3+ (NEGATIVE) H Urine Nitrite Negative (NEGATIVE) Urine Bilirubin Negative (NEGATIVE) Urine Urobilinogen Normal MG/DL (0.0-1.0) Urine Leukocyte Esterase Negative (NEGATIVE) Urine RBC 2-4 /HPF (0 - 0) H Urine WBC 0-2 /HPF (0 - 0) Urine Squamous Epithelial Cells None /LPF (NONE/OCC) Urine Bacteria Few /HPF (NONE) Urine Eosinophils None seen Urine Random Creatinine Pending Urine Random Microalbumin Pending Urine Random Total Protein 73 MG/DL (< 11.9) H Urine Random Sodium 105 mmol/L (20-110) Urine Microalbumin/Creatinine Ratio Pending White Blood Count 15.2 K/UL (4.8-10.8) H Red Blood Count 3.69 M/UL (4.70-6.10) L Hemoglobin 12.1 G/DL (14.2-18.0) L Hematocrit 34.1 % (42.0-52.0) L Mean Corpuscular Volume 92 FL (80-99) Mean Corpuscular Hemoglobin 32.9 PG (27.0-31.0) H Mean Corpuscular Hemoglobin Concent 35.5 G/DL (32.0-36.0) Red Cell Distribution Width 11.1 % (11.6-14.8) L Platelet Count 137 K/UL (150-450) L Mean Platelet Volume 8.3 FL (6.5-10.1) Neutrophils (%) (Auto) % (45.0-75.0) Lymphocytes (%) (Auto) % (20.0-45.0) Monocytes (%) (Auto) % (1.0-10.0) Eosinophils (%) (Auto) % (0.0-3.0) Basophils (%) (Auto) % (0.0-2.0) Differential Total Cells Counted 100 Neutrophils % (Manual) 88 % (45-75) H Lymphocytes % (Manual) 6 % (20-45) L Monocytes % (Manual) 5 % (1-10) Eosinophils % (Manual) 0 % (0-3) Basophils % (Manual) 0 % (0-2) Band Neutrophils 1 % (0-8) Platelet Estimate Decreased L Platelet Morphology Normal Red Blood Cell Morphology Normal Sodium Level 133 MMOL/L (136-145) L Potassium Level 3.5 MMOL/L (3.5-5.1) Chloride Level 101 MMOL/L (98-107) Carbon Dioxide Level 25 MMOL/L (21-32) Anion Gap 7 mmol/L (5-15) Blood Urea Nitrogen 11 mg/dL (7-18) Creatinine 1.0 MG/DL (0.55-1.30) Estimat Glomerular Filtration Rate > 60 mL/min (>60) Glucose Level 114 MG/DL (74-106) H Calcium Level 8.1 MG/DL (8.5-10.1) L Phosphorus Level 2.0 MG/DL (2.5-4.9) L Magnesium Level 1.9 MG/DL (1.8-2.4) Current Medications Medications (Trade) Dose Ordered Sig/Tisha Route PRN Reason Start Time Stop Time Status Last Admin Dose Admin Acetaminophen (Tylenol) 650 mg Q4H PRN RECTAL FEVER (temp>100.5F) 09/10/17 22:00 10/09/17 17:59 Dextrose/ Electrolytes 1,000 ml @ 100 mls/hr Q10H IV 09/10/17 21:00 10/09/17 19:59 09/11/17 14:47 Diphenhydramine HCl (Benadryl) 12.5 mg Q6H PRN IVP Itching/Pruritis 09/11/17 00:00 10/09/17 17:59 Heparin Sodium (Porcine) (Heparin 5000 units/ml) 5,000 units EVERY 12 HOURS SUBQ 09/10/17 21:00 10/09/17 20:59 09/10/17 21:12 Hydromorphone HCl (Dilaudid) 0.5 mg Q3H PRN IVP Pain Score 1-3 09/10/17 21:00 09/16/17 17:59 Ketorolac Tromethamine (Toradol 30mg) 15 mg Q6H PRN IV Moderate Pain (Pain Scale 4-6) 09/11/17 00:00 09/14/17 17:59 Morphine Sulfate (Morphine Sulfate) 4 mg Q4H PRN IVP Severe Pain (Pain Scale 7-10) 09/10/17 22:00 09/16/17 17:59 09/11/17 08:36 Ondansetron HCl (Zofran) 4 mg Q6H PRN IVP Nausea & Vomiting 09/11/17 00:00 10/09/17 17:59 Pantoprazole (Protonix) 40 mg Q12HR IVP 09/10/17 21:00 10/09/17 20:59 09/11/17 08:36 Piperacillin Sod/ Tazobactam Sod 3.375 gm/Sodium Chloride 110 ml @ 27.5 mls/hr EVERY 8 HOURS IVPB 09/10/17 22:00 09/15/17 21:59 09/11/17 14:39 Sodium Phosphate 30 mm/Sodium Chloride 285 ml @ 47.5 mls/hr ONCE ONCE IVPB 09/11/17 13:00 09/11/17 18:59 09/11/17 13:32 Belkys Farrell M.D. September 11, 2017 19:01
[2017-09-11 20:00] VITALS: BP 126/81
[2017-09-12] VITALS: BP 127/85
--- NOTE | 2017-09-12 01:01 | Consultation ---
DATE OF CONSULTATION: 09/10/2017 CARDIOLOGY CONSULTATION CONSULTING PHYSICIAN: Mayur Scott M.D. REFERRING PHYSICIAN: Real Ortiz D.O. REASON FOR CONSULTATION: Management of tachycardia. HISTORY OF PRESENT ILLNESS: This is a very unfortunate 56-year-old gentleman, who presents to the hospital with abdominal pain, nausea, vomiting, and diaphoresis. He was diagnosed with perforated ulcer with presence of a free intraperitoneal air and sepsis after initial workup done in the emergency department including CT of abdomen and pelvis. On arrival to the hospital, the patient's blood pressure was 152/100 mmHg and pulse of 111. Cardiology consultation was made to address tachycardia and to manage the patient from the hemodynamics standpoint. At the time of my evaluation, the patient is in a postoperative period denying any chest pain or shortness of breath. He claims that prior to this event, he had his heart checked and was told that his heart condition is within normal limits. PAST MEDICAL HISTORY: None. PAST SURGICAL HISTORY: None. MEDICATIONS: List of medications in the outpatient setting, none. ALLERGIES: No known drug allergies. FAMILY HISTORY: No premature coronary artery disease in the first-degree relatives. SOCIAL HISTORY: Denies any tobacco, alcohol, or illicit drug use. REVIEW OF SYSTEMS: A 12-system review done is essentially negative except what is mentioned in the history of present illness. PHYSICAL EXAMINATION: VITAL SIGNS: Blood pressure was 152/100, pulse of 111, respirations of 19, O2 saturation 99% on room air, and temperature 98.6 degrees Fahrenheit. GENERAL: The patient is a very unfortunate 56-year-old gentleman, in no apparent respiratory distress. An NG tube in place. HEENT: Atraumatic and normocephalic. Anicteric. Pupils are equal, round, and reactive to light and accommodation. Extraocular muscles intact. NECK: JVP less than 5 cm. No carotid bruit. Carotid upstrokes 2+ bilaterally. CVS: Normal S1 and S2. Tachycardic. No murmurs, gallops, or rubs. LUNGS: Clear to auscultation bilaterally. ABDOMEN: Distended. Diminished bowel sounds. EXTREMITIES: No evidence of edema, clubbing, or cyanosis. LABORATORY FINDINGS: WBC 17.6, hemoglobin 16.2, hematocrit of 46.6, and platelet count is 159,000. Chemistry, sodium is 128, potassium is 2.6, chloride is 91, bicarbonate 25, BUN of 19, creatinine 1.4, and glucose is 179. Lactic acid 4.5. Calcium is 9.7. INR is 1.0. A 12-lead electrocardiogram shows sinus rhythm at a rate of 76, biatrial enlargement, left ventricular hypertrophy, cannot rule out septal infarct, age indeterminate. ASSESSMENT AND PLAN: The patient is a very unfortunate 56-year-old gentleman, seen in Cardiology consultation at the request of Dr. Ortiz. 1. Sinus tachycardia. This is due to third spacing with perforated ulcer as well as sepsis. The management of the tachycardia is aggressive intravenous hydration including normal saline with electrolyte replacement in particular potassium and magnesium phosphate. I will continue to monitor the patient in the postoperative period from the hemodynamic standpoint. 2. Perforated ulcer status post laparotomy and repair. 3. Severe hypovolemia and electrolyte derangement. I would like to thank, Dr. Ortiz, for the courtesy of this consultation. Mayur Scott M.D. DR: PATIENCE JOB#: [id number] CC:
[2017-09-12] MEDS: Morphine Sulfate 4mg/ml Inj IVP PRN ×2 (01:35→20:15)
[2017-09-12] MEDS: Piperacillin/Tazobactam 3.375 GM in NS 110 ML IVPB SCH ×3 (05:48→22:19)
[2017-09-12] MEDS: D5 1/2NS w/KCl 20mEq 1,000 ML IV SCH ×3 (05:48→23:00)
[2017-09-12 08:00] VITALS: BP 143/87
[2017-09-12 08:15] LABS: BASOPHILS % (AUTO) 0.5 % (0.0-2.0); EOSINOPHILS % (AUTO) 0.2 % (0.0-3.0); HEMATOCRIT 31.8 % (42.0-52.0); HEMOGLOBIN 11.5 G/DL (14.2-18.0); LYMPHOCYTES % (AUTO) 9.2 % (20.0-45.0); MEAN CORPUSCULAR VOLUME 92 FL (80-99); MONOCYTES % (AUTO) 7.9 % (1.0-10.0); NEUTROPHILS % (AUTO) 82.2 % (45.0-75.0); PLATELET COUNT 177 K/UL (150-450); RED BLOOD COUNT 3.44 M/UL (4.70-6.10); WHITE BLOOD COUNT 10.7 K/UL (4.8-10.8)
[2017-09-12 08:17] LABS: ANION GAP 8 mmol/L (5-15); BLOOD UREA NITROGEN 14 mg/dL (7-18); CALCIUM 8.2 MG/DL (8.5-10.1); CARBON DIOXIDE 24 MMOL/L (21-32); CHLORIDE 104 MMOL/L (98-107); POTASSIUM 3.3 MMOL/L (3.5-5.1); SODIUM 136 MMOL/L (136-145)
[2017-09-12] MEDS: Pantoprazole Inj IVP SCH ×2 (09:15→20:17)
[2017-09-12] MEDS: Heparin 5000 units/ml inj SUBQ SCH ×2 (09:16→20:17)
--- NOTE | 2017-09-12 10:34 | Diagnostic Imaging Report ---
Indication: Cough Comparison: None A single view chest radiograph was obtained. Findings: Cardiomediastinal appearance is within normal limits for age. Pulmonary vascularity is appropriate. The diaphragmatic contour is smooth and costophrenic angles are sharp. No pleural effusions are identified. The bones are unremarkable. NG tube is in good position. Surgical skin tomas noted in the upper abdomen Impression: No acute findings
--- NOTE | 2017-09-12 11:13 | GI Progress Note ---
Assessment/Plan Problems: (1) Abdominal pain ICD Codes: R10.9 - Unspecified abdominal pain SNOMED: 85709473 (2) Perforated abdominal viscus SNOMED: 982512785 (3) Free intraperitoneal air ICD Codes: K66.8 - Other specified disorders of peritoneum SNOMED: 76631855 (4) Severe sepsis ICD Codes: A41.9 - Sepsis, unspecified organism; R65.20 - Severe sepsis without septic shock SNOMED: 09005305 (5) Perforated ulcer ICD Codes: K27.5 - Chronic or unspecified peptic ulcer, site unspecified, with perforation SNOMED: 72751153 Status: stable Status Narrative Discussed with Dr. Henry. Assessment/Plan s/p exploratory laparotomy, antrectomy, gastrojejunostomy (Billroth 2 procedure) hyperchromic anemia electrolyte imbalance fu surgical recs NPO + IVFs NGT to LIS pain mgmt zofran prn ppi IV fu labs outpatient GI procedures Subjective Gastrointestinal/Abdominal: Reports: abdominal pain Objective Last 24 Hour Vital Signs Date Time Temp Pulse Resp B/P (MAP) Pulse Ox O2 Delivery O2 Flow Rate FiO2 09/12/17 08:00 98.1 78 19 143/87 97 Nasal Cannula 2.0 98.1 09/12/17 04:00 09/12/17 00:00 97.6 88 18 127/85 97 Nasal Cannula 2.0 97.6 09/11/17 20:00 98.2 78 18 126/81 100 Nasal Cannula 2.0 98.2 09/11/17 16:00 98.1 88 18 127/80 100 Room Air 98.1 09/11/17 12:00 97.8 77 18 126/74 100 Room Air 97.8 Intake and Output 09/11/17 09/12/17 19:00 07:00 Intake Total 100 ml 1010.0 ml Output Total 435 ml 500 ml Balance -335 ml 510.0 ml IV Total 100 ml 1010.0 ml Output Urine Total 500 ml Gastric Drainage Total 400 ml Drainage Total 35 ml # Voids 5 3 Laboratory Tests Test 09/12/17 07:30 White Blood Count 10.7 K/UL (4.8-10.8) Red Blood Count 3.44 M/UL (4.70-6.10) L Hemoglobin 11.5 G/DL (14.2-18.0) L Hematocrit 31.8 % (42.0-52.0) L Mean Corpuscular Volume 92 FL (80-99) Mean Corpuscular Hemoglobin 33.5 PG (27.0-31.0) H Mean Corpuscular Hemoglobin Concent 36.3 G/DL (32.0-36.0) H Red Cell Distribution Width 11.0 % (11.6-14.8) L Platelet Count 177 K/UL (150-450) Mean Platelet Volume 7.9 FL (6.5-10.1) Neutrophils (%) (Auto) 82.2 % (45.0-75.0) H Lymphocytes (%) (Auto) 9.2 % (20.0-45.0) L Monocytes (%) (Auto) 7.9 % (1.0-10.0) Eosinophils (%) (Auto) 0.2 % (0.0-3.0) Basophils (%) (Auto) 0.5 % (0.0-2.0) Sodium Level 136 MMOL/L (136-145) Potassium Level 3.3 MMOL/L (3.5-5.1) L Chloride Level 104 MMOL/L (98-107) Carbon Dioxide Level 24 MMOL/L (21-32) Anion Gap 8 mmol/L (5-15) Blood Urea Nitrogen 14 mg/dL (7-18) Creatinine 1.0 MG/DL (0.55-1.30) Estimat Glomerular Filtration Rate > 60 mL/min (>60) Glucose Level 121 MG/DL (74-106) H Calcium Level 8.2 MG/DL (8.5-10.1) L Height (Feet): 5 Height (Inches): 11.00 Weight (Pounds): 169 General Appearance: WD/WN, no apparent distress, alert Cardiovascular: normal rate Respiratory/Chest: normal breath sounds, no respiratory distress Abdominal Exam: normal bowel sounds, non tender, soft Extremities: normal range of motion, non-tender Walter Molina NP Sep 12, 2017 11:13
[2017-09-12 12:00] VITALS: BP 130/78
--- NOTE | 2017-09-12 12:33 | General Progress Note ---
Progress Note Progress Note Surgery: no acute events. doing well. pain improved. ambulatory. ng tube with bilious output. -cont with current care. npo, iv fluids, ng tube. Yury Pittman Sep 12, 2017 12:33
--- NOTE | 2017-09-12 12:36 | General Progress Note ---
Assessment/Plan Problem List: (1) Perforated ulcer ICD Codes: K27.5 - Chronic or unspecified peptic ulcer, site unspecified, with perforation SNOMED: 01354404 (2) Severe sepsis ICD Codes: A41.9 - Sepsis, unspecified organism; R65.20 - Severe sepsis without septic shock SNOMED: 48332779 (3) Free intraperitoneal air ICD Codes: K66.8 - Other specified disorders of peritoneum SNOMED: 63809116 (4) Perforated abdominal viscus SNOMED: 827792490 (5) Abdominal pain ICD Codes: R10.9 - Unspecified abdominal pain SNOMED: 11668262 Status: unchanged Assessment/Plan ot pt diet abx pain control gi sx f/u cbc bmp am Subjective Constitutional: Reports: weakness Allergies: Coded Allergies: No Known Allergies (Unverified , 09/09/17) All Systems: reviewed and negative except above Subjective ng lethargic in bed Objective Last 24 Hour Vital Signs Date Time Temp Pulse Resp B/P (MAP) Pulse Ox O2 Delivery O2 Flow Rate FiO2 09/12/17 12:00 97.9 71 20 130/78 97 Nasal Cannula 2.0 97.9 09/12/17 08:00 98.1 78 19 143/87 97 Nasal Cannula 2.0 98.1 09/12/17 04:00 09/12/17 00:00 97.6 88 18 127/85 97 Nasal Cannula 2.0 97.6 09/11/17 20:00 98.2 78 18 126/81 100 Nasal Cannula 2.0 98.2 09/11/17 16:00 98.1 88 18 127/80 100 Room Air 98.1 Intake and Output 09/11/17 09/12/17 19:00 07:00 Intake Total 100 ml 1010.0 ml Output Total 435 ml 500 ml Balance -335 ml 510.0 ml IV Total 100 ml 1010.0 ml Output Urine Total 500 ml Gastric Drainage Total 400 ml Drainage Total 35 ml # Voids 5 3 Laboratory Tests 09/12/17 07:30: White Blood Count 10.7, Red Blood Count 3.44L, Hemoglobin 11.5L, Hematocrit 31.8L, Mean Corpuscular Volume 92, Mean Corpuscular Hemoglobin 33.5H, Mean Corpuscular Hemoglobin Concent 36.3H, Red Cell Distribution Width 11.0L, Platelet Count 177, Mean Platelet Volume 7.9, Neutrophils (%) (Auto) 82.2H, Lymphocytes (%) (Auto) 9.2L, Monocytes (%) (Auto) 7.9, Eosinophils (%) (Auto) 0.2, Basophils (%) (Auto) 0.5, Sodium Level 136, Potassium Level 3.3L, Chloride Level 104, Carbon Dioxide Level 24, Anion Gap 8, Blood Urea Nitrogen 14, Creatinine 1.0, Estimat Glomerular Filtration Rate > 60, Glucose Level 121H, Calcium Level 8.2L Height (Feet): 5 Height (Inches): 11.00 Weight (Pounds): 169 General Appearance: alert EENT: normal ENT inspection Neck: normal alignment Cardiovascular: normal peripheral pulses, normal rate, regular rhythm Respiratory/Chest: chest wall non-tender, lungs clear, normal breath sounds Abdomen: soft, hypoactive bowel sounds Extremities: normal inspection Edema: no edema noted Arm (L), no edema noted Arm (R), no edema noted Leg (L), no edema noted Leg (R), no edema noted Pedal (L), no edema noted Pedal (R), no edema noted Generalized Neurologic: responsive, motor weakness Skin: normal pigmentation, warm/dry Real Ortiz DO Sep 12, 2017 12:36
--- NOTE | 2017-09-12 14:02 | Nephrology Progress Note ---
Assessment/Plan Assessment 1. Hypovolemic hyponatremia. 2. Hypokalemia. 3. Acute renal failure, 4. Status post perforated duodenal ulcer Plan plan continue ivf monitoring electrolyte avoid NSAID replace electrolyte Objective Objective Last 24 Hour Vital Signs Date Time Temp Pulse Resp B/P (MAP) Pulse Ox O2 Delivery O2 Flow Rate FiO2 09/12/17 12:00 97.9 71 20 130/78 97 Nasal Cannula 2.0 97.9 09/12/17 08:00 98.1 78 19 143/87 97 Nasal Cannula 2.0 98.1 09/12/17 04:00 09/12/17 00:00 97.6 88 18 127/85 97 Nasal Cannula 2.0 97.6 09/11/17 20:00 98.2 78 18 126/81 100 Nasal Cannula 2.0 98.2 09/11/17 16:00 98.1 88 18 127/80 100 Room Air 98.1 Intake and Output 09/11/17 09/12/17 19:00 07:00 Intake Total 100 ml 1010.0 ml Output Total 435 ml 500 ml Balance -335 ml 510.0 ml IV Total 100 ml 1010.0 ml Output Urine Total 500 ml Gastric Drainage Total 400 ml Drainage Total 35 ml # Voids 5 3 Laboratory Tests 09/12/17 07:30: White Blood Count 10.7, Red Blood Count 3.44L, Hemoglobin 11.5L, Hematocrit 31.8L, Mean Corpuscular Volume 92, Mean Corpuscular Hemoglobin 33.5H, Mean Corpuscular Hemoglobin Concent 36.3H, Red Cell Distribution Width 11.0L, Platelet Count 177, Mean Platelet Volume 7.9, Neutrophils (%) (Auto) 82.2H, Lymphocytes (%) (Auto) 9.2L, Monocytes (%) (Auto) 7.9, Eosinophils (%) (Auto) 0.2, Basophils (%) (Auto) 0.5, Sodium Level 136, Potassium Level 3.3L, Chloride Level 104, Carbon Dioxide Level 24, Anion Gap 8, Blood Urea Nitrogen 14, Creatinine 1.0, Estimat Glomerular Filtration Rate > 60, Glucose Level 121H, Calcium Level 8.2L Height (Feet): 5 Height (Inches): 11.00 Weight (Pounds): 169 Objective HEAD AND NECK: No JVP. No LAD. No thyromegaly. Extraocular movement sintact. Pupils are reactive to light and accommodation. LUNGS: Clear to auscultation. CARDIAC: Regular rate and rhythm. S1 and S2. No murmur. No rub. ABDOMEN: Status post exploratory laparotomy and diffusely tender, guarding, and bowel sounds are decreased. EXTREMITIES: No edema. No clubbing. No cyanosis. Gogo Velázquez MD Sep 12, 2017 14:02
[2017-09-12 15:56] VITALS: BP 140/80
--- NOTE | 2017-09-12 18:07 | Infectious Diseases Prog Note ---
Assessment/Plan Assessment/Plan Abx: Ancef x1 09/09 Zosyn 09/09- Assessment: Perforated duodenal ulcer -s/p exploratory laparotomy, antrectomy, gastrojejunostomy (Billroth 2 procedure) 09/09 -OR cx NTD -CT abd/p: Evidence of a perforation of a hollow viscus. Moderate free air is in the upper abdomen. Moderate free fluid. There is dilatation of the stomach with apparent narrowing in the first portion of duodenum with suspicion of a mucosal ulcer. Suspect this is the area of perforation due to [place] ulceration or ulcerative tumor. Leukocytosis, resolved- 2ry to above (reactive, post-op) -afebrile -u/a neg -CXR 09/12: No acute findings -BCx NTD HAM, improving Plan: -Continue sushant-op Zosyn #4/5 -f/u cx -Monitor CBC/BMP, temperatures -wound care -aspiration precautions -Sx f/u Thank you for this consultation. Will continue to follow along with you. Discussed with RN. Subjective Allergies: Coded Allergies: No Known Allergies (Unverified , 09/09/17) Subjective afebrile leukocytosis resolved Objective Vital Signs Last 24 Hour Vital Signs Date Time Temp Pulse Resp B/P (MAP) Pulse Ox O2 Delivery O2 Flow Rate FiO2 09/12/17 15:56 98.3 82 20 140/80 97 Nasal Cannula 2.0 98.3 09/12/17 12:00 97.9 71 20 130/78 97 Nasal Cannula 2.0 97.9 09/12/17 08:00 98.1 78 19 143/87 97 Nasal Cannula 2.0 98.1 09/12/17 04:00 09/12/17 00:00 97.6 88 18 127/85 97 Nasal Cannula 2.0 97.6 09/11/17 20:00 98.2 78 18 126/81 100 Nasal Cannula 2.0 98.2 Height (Feet): 5 Height (Inches): 11.00 Weight (Pounds): 169 Objective General Appearance: WD/WN Lines, tubes and drains: peripheral HEENT: normocephalic, anicteric Neck: non-tender, normal alignment Respiratory/Chest: chest wall non-tender, lungs clear Breasts: no masses Cardiovascular/Chest: normal peripheral pulses Abdomen: surgical dressings in place Laboratory Tests Test 09/12/17 07:30 White Blood Count 10.7 K/UL (4.8-10.8) Red Blood Count 3.44 M/UL (4.70-6.10) L Hemoglobin 11.5 G/DL (14.2-18.0) L Hematocrit 31.8 % (42.0-52.0) L Mean Corpuscular Volume 92 FL (80-99) Mean Corpuscular Hemoglobin 33.5 PG (27.0-31.0) H Mean Corpuscular Hemoglobin Concent 36.3 G/DL (32.0-36.0) H Red Cell Distribution Width 11.0 % (11.6-14.8) L Platelet Count 177 K/UL (150-450) Mean Platelet Volume 7.9 FL (6.5-10.1) Neutrophils (%) (Auto) 82.2 % (45.0-75.0) H Lymphocytes (%) (Auto) 9.2 % (20.0-45.0) L Monocytes (%) (Auto) 7.9 % (1.0-10.0) Eosinophils (%) (Auto) 0.2 % (0.0-3.0) Basophils (%) (Auto) 0.5 % (0.0-2.0) Sodium Level 136 MMOL/L (136-145) Potassium Level 3.3 MMOL/L (3.5-5.1) L Chloride Level 104 MMOL/L (98-107) Carbon Dioxide Level 24 MMOL/L (21-32) Anion Gap 8 mmol/L (5-15) Blood Urea Nitrogen 14 mg/dL (7-18) Creatinine 1.0 MG/DL (0.55-1.30) Estimat Glomerular Filtration Rate > 60 mL/min (>60) Glucose Level 121 MG/DL (74-106) H Calcium Level 8.2 MG/DL (8.5-10.1) L Current Medications Medications (Trade) Dose Ordered Sig/Tisha Route PRN Reason Start Time Stop Time Status Last Admin Dose Admin Acetaminophen (Tylenol) 650 mg Q4H PRN RECTAL FEVER (temp>100.5F) 09/10/17 22:00 10/09/17 17:59 Dextrose/ Electrolytes 1,000 ml @ 100 mls/hr Q10H IV 09/10/17 21:00 10/09/17 19:59 09/12/17 13:40 Diphenhydramine HCl (Benadryl) 12.5 mg Q6H PRN IVP Itching/Pruritis 09/11/17 00:00 10/09/17 17:59 Heparin Sodium (Porcine) (Heparin 5000 units/ml) 5,000 units EVERY 12 HOURS SUBQ 09/10/17 21:00 10/09/17 20:59 09/12/17 09:16 Hydromorphone HCl (Dilaudid) 0.5 mg Q3H PRN IVP Pain Score 1-3 09/10/17 21:00 09/16/17 17:59 Ketorolac Tromethamine (Toradol 30mg) 15 mg Q6H PRN IV Moderate Pain (Pain Scale 4-6) 09/11/17 00:00 09/14/17 17:59 Morphine Sulfate (Morphine Sulfate) 4 mg Q4H PRN IVP Severe Pain (Pain Scale 7-10) 09/10/17 22:00 09/16/17 17:59 09/12/17 01:35 Ondansetron HCl (Zofran) 4 mg Q6H PRN IVP Nausea & Vomiting 09/11/17 00:00 10/09/17 17:59 09/11/17 22:58 Pantoprazole (Protonix) 40 mg Q12HR IVP 09/10/17 21:00 10/09/17 20:59 09/12/17 09:15 Piperacillin Sod/ Tazobactam Sod 3.375 gm/Sodium Chloride 110 ml @ 27.5 mls/hr EVERY 8 HOURS IVPB 09/10/17 22:00 09/15/17 21:59 09/12/17 13:40 Belkys Farrell M.D. Sep 12, 2017 18:07
--- NOTE | 2017-09-12 19:17 | Nephrology Progress Note ---
Assessment/Plan Assessment 1. Hypovolemic hyponatremia. 2. Hypokalemia. 3. Acute renal failure, 4. Status post perforated duodenal ulcer Plan plan continue ivf monitoring electrolyte avoid NSAID replace electrolyte Subjective Constitutional: Reports: malaise HEENT: Reports: no symptoms Genitourinary: Reports: no symptoms Neurologic/Psychiatric: Reports: no symptoms Objective Objective Last 24 Hour Vital Signs Date Time Temp Pulse Resp B/P (MAP) Pulse Ox O2 Delivery O2 Flow Rate FiO2 09/12/17 15:56 98.3 82 20 140/80 97 Nasal Cannula 2.0 98.3 09/12/17 12:00 97.9 71 20 130/78 97 Nasal Cannula 2.0 97.9 09/12/17 08:00 98.1 78 19 143/87 97 Nasal Cannula 2.0 98.1 09/12/17 04:00 09/12/17 00:00 97.6 88 18 127/85 97 Nasal Cannula 2.0 97.6 09/11/17 20:00 98.2 78 18 126/81 100 Nasal Cannula 2.0 98.2 Intake and Output 09/11/17 09/12/17 19:00 07:00 Intake Total 100 ml 1110.0 ml Output Total 435 ml 500 ml Balance -335 ml 610.0 ml IV Total 100 ml 1110.0 ml Output Urine Total 500 ml Gastric Drainage Total 400 ml Drainage Total 35 ml # Voids 5 3 Laboratory Tests 09/12/17 07:30: White Blood Count 10.7, Red Blood Count 3.44L, Hemoglobin 11.5L, Hematocrit 31.8L, Mean Corpuscular Volume 92, Mean Corpuscular Hemoglobin 33.5H, Mean Corpuscular Hemoglobin Concent 36.3H, Red Cell Distribution Width 11.0L, Platelet Count 177, Mean Platelet Volume 7.9, Neutrophils (%) (Auto) 82.2H, Lymphocytes (%) (Auto) 9.2L, Monocytes (%) (Auto) 7.9, Eosinophils (%) (Auto) 0.2, Basophils (%) (Auto) 0.5, Sodium Level 136, Potassium Level 3.3L, Chloride Level 104, Carbon Dioxide Level 24, Anion Gap 8, Blood Urea Nitrogen 14, Creatinine 1.0, Estimat Glomerular Filtration Rate > 60, Glucose Level 121H, Calcium Level 8.2L Height (Feet): 5 Height (Inches): 11.00 Weight (Pounds): 169 Objective HEAD AND NECK: No JVP. No LAD. No thyromegaly. Extraocular movement sintact. Pupils are reactive to light and accommodation. LUNGS: Clear to auscultation. CARDIAC: Regular rate and rhythm. S1 and S2. No murmur. No rub. ABDOMEN: Status post exploratory laparotomy and diffusely tender, guarding, and bowel sounds are decreased. EXTREMITIES: No edema. No clubbing. No cyanosis. Gogo Velázquez MD Sep 12, 2017 19:17
[2017-09-12 20:27] VITALS: BP 128/85
[2017-09-13 04:00] VITALS: BP 127/87
[2017-09-13] MEDS: Piperacillin/Tazobactam 3.375 GM in NS 110 ML IVPB SCH ×3 (05:24→22:28)
[2017-09-13 08:00] VITALS: BP 123/81
[2017-09-13] MEDS: D5 1/2NS w/KCl 20mEq 1,000 ML IV SCH ×2 (08:32→18:08)
[2017-09-13] MEDS: Pantoprazole Inj IVP SCH ×2 (08:32→20:00)
[2017-09-13] MEDS: Heparin 5000 units/ml inj SUBQ SCH ×2 (08:33→20:01)
[2017-09-13 08:46] LABS: BASOPHILS % (AUTO) 0.8 % (0.0-2.0); EOSINOPHILS % (AUTO) 0.7 % (0.0-3.0); HEMATOCRIT 32.9 % (42.0-52.0); HEMOGLOBIN 11.4 G/DL (14.2-18.0); LYMPHOCYTES % (AUTO) 25.2 % (20.0-45.0); MEAN CORPUSCULAR VOLUME 92 FL (80-99); MONOCYTES % (AUTO) 8.2 % (1.0-10.0); NEUTROPHILS % (AUTO) 65.2 % (45.0-75.0); PLATELET COUNT 220 K/UL (150-450); RED BLOOD COUNT 3.55 M/UL (4.70-6.10); RED CELL DISTRIBUTION WIDTH 11.2 % (11.6-14.8); WHITE BLOOD COUNT 6.5 K/UL (4.8-10.8)
--- NOTE | 2017-09-13 08:48 | General Progress Note ---
Assessment/Plan Problem List: (1) Perforated ulcer ICD Codes: K27.5 - Chronic or unspecified peptic ulcer, site unspecified, with perforation SNOMED: 55549410 (2) Severe sepsis ICD Codes: A41.9 - Sepsis, unspecified organism; R65.20 - Severe sepsis without septic shock SNOMED: 74202415 (3) Free intraperitoneal air ICD Codes: K66.8 - Other specified disorders of peritoneum SNOMED: 80426746 (4) Perforated abdominal viscus SNOMED: 602064521 (5) Abdominal pain ICD Codes: R10.9 - Unspecified abdominal pain SNOMED: 38198185 Status: unchanged Assessment/Plan ot pt diet abx pain control gi sx f/u cbc bmp am Subjective Constitutional: Reports: weakness Allergies: Coded Allergies: No Known Allergies (Unverified , 09/09/17) All Systems: reviewed and negative except above Subjective ng no bm in bed Objective Last 24 Hour Vital Signs Date Time Temp Pulse Resp B/P (MAP) Pulse Ox O2 Delivery O2 Flow Rate FiO2 09/13/17 08:00 98.5 77 19 123/81 99 Nasal Cannula 2.0 98.5 09/13/17 04:00 98.1 91 19 127/87 99 Nasal Cannula 2.0 98.1 09/12/17 20:45 98.7 09/12/17 20:27 98.7 78 18 128/85 95 Nasal Cannula 2.0 98.7 09/12/17 20:15 98.3 09/12/17 15:56 98.3 82 20 140/80 97 Nasal Cannula 2.0 98.3 09/12/17 12:00 97.9 71 20 130/78 97 Nasal Cannula 2.0 97.9 Intake and Output 09/12/17 09/13/17 19:00 07:00 Intake Total 1110.0 ml 337.5 ml Output Total 1310 ml 870 ml Balance -200.0 ml -532.5 ml IV Total 1110.0 ml 337.5 ml Output Urine Total 200 ml Gastric Drainage Total 1100 ml 850 ml Drainage Total 10 ml 20 ml # Voids 1 2 Laboratory Tests 09/13/17 07:07: White Blood Count [Pending], Red Blood Count [Pending], Hemoglobin [Pending], Hematocrit [Pending], Mean Corpuscular Volume [Pending], Mean Corpuscular Hemoglobin [Pending], Mean Corpuscular Hemoglobin Concent [Pending], Red Cell Distribution Width [Pending], Platelet Count [Pending], Mean Platelet Volume [ Pending], Neutrophils (%) (Auto) [Pending], Lymphocytes (%) (Auto) [Pending], Monocytes (%) (Auto) [Pending], Eosinophils (%) (Auto) [Pending], Basophils (%) (Auto) [Pending], Sodium Level [Pending], Potassium Level [Pending], Chloride Level [Pending], Carbon Dioxide Level [Pending], Blood Urea Nitrogen [Pending], Creatinine [Pending], Estimat Glomerular Filtration Rate [Pending], Glucose Level [Pending], Calcium Level [Pending] Height (Feet): 5 Height (Inches): 11.00 Weight (Pounds): 169 General Appearance: alert EENT: normal ENT inspection Neck: normal alignment Cardiovascular: normal peripheral pulses, normal rate, regular rhythm Respiratory/Chest: chest wall non-tender, lungs clear, normal breath sounds Abdomen: hypoactive bowel sounds Extremities: normal inspection Edema: no edema noted Arm (L), no edema noted Arm (R), no edema noted Leg (L), no edema noted Leg (R), no edema noted Pedal (L), no edema noted Pedal (R), no edema noted Generalized Neurologic: responsive, motor weakness Skin: normal pigmentation, warm/dry Real Ortiz DO Sep 13, 2017 08:48
[2017-09-13 09:07] LABS: ANION GAP 8 mmol/L (5-15); BLOOD UREA NITROGEN 16 mg/dL (7-18); CALCIUM 8.4 MG/DL (8.5-10.1); CARBON DIOXIDE 25 MMOL/L (21-32); CHLORIDE 104 MMOL/L (98-107); POTASSIUM 3.3 MMOL/L (3.5-5.1); SODIUM 137 MMOL/L (136-145)
--- NOTE | 2017-09-13 10:13 | Infectious Diseases Prog Note ---
Assessment/Plan Assessment/Plan Abx: Ancef x1 09/09 Zosyn 09/09- Assessment: Perforated duodenal ulcer -s/p exploratory laparotomy, antrectomy, gastrojejunostomy (Billroth 2 procedure) 09/09 -OR cx Neg -CT abd/p: Evidence of a perforation of a hollow viscus. Moderate free air is in the upper abdomen. Moderate free fluid. There is dilatation of the stomach with apparent narrowing in the first portion of duodenum with suspicion of a mucosal ulcer. Suspect this is the area of perforation due to [place] ulceration or ulcerative tumor. Leukocytosis, resolved- 2ry to above (reactive, post-op) -afebrile -u/a neg -CXR 09/12: No acute findings -BCx NTD HAM, improving Plan: -Continue sushant-op Zosyn #08/16 -f/u cx -Monitor CBC/BMP, temperatures -wound care -aspiration precautions -Sx f/u Thank you for this consultation. Will continue to follow along with you. Discussed with RN. Subjective Allergies: Coded Allergies: No Known Allergies (Unverified , 09/09/17) Subjective afebrile no leukocytosis Bcx NTD OR cx neg Objective Vital Signs Last 24 Hour Vital Signs Date Time Temp Pulse Resp B/P (MAP) Pulse Ox O2 Delivery O2 Flow Rate FiO2 09/13/17 08:00 98.5 77 19 123/81 99 Nasal Cannula 2.0 98.5 09/13/17 04:00 98.1 91 19 127/87 99 Nasal Cannula 2.0 98.1 09/12/17 20:45 98.7 09/12/17 20:27 98.7 78 18 128/85 95 Nasal Cannula 2.0 98.7 09/12/17 20:15 98.3 09/12/17 15:56 98.3 82 20 140/80 97 Nasal Cannula 2.0 98.3 09/12/17 12:00 97.9 71 20 130/78 97 Nasal Cannula 2.0 97.9 Height (Feet): 5 Height (Inches): 11.00 Weight (Pounds): 169 Objective General Appearance: WD/WN Lines, tubes and drains: peripheral HEENT: normocephalic, anicteric Neck: non-tender, normal alignment Respiratory/Chest: chest wall non-tender, lungs clear Breasts: no masses Cardiovascular/Chest: normal peripheral pulses Abdomen: surgical dressings in place Laboratory Tests Test 09/13/17 07:07 White Blood Count 6.5 K/UL (4.8-10.8) Red Blood Count 3.55 M/UL (4.70-6.10) L Hemoglobin 11.4 G/DL (14.2-18.0) L Hematocrit 32.9 % (42.0-52.0) L Mean Corpuscular Volume 92 FL (80-99) Mean Corpuscular Hemoglobin 32.1 PG (27.0-31.0) H Mean Corpuscular Hemoglobin Concent 34.7 G/DL (32.0-36.0) Red Cell Distribution Width 11.2 % (11.6-14.8) L Platelet Count 220 K/UL (150-450) Mean Platelet Volume 6.6 FL (6.5-10.1) Neutrophils (%) (Auto) 65.2 % (45.0-75.0) Lymphocytes (%) (Auto) 25.2 % (20.0-45.0) Monocytes (%) (Auto) 8.2 % (1.0-10.0) Eosinophils (%) (Auto) 0.7 % (0.0-3.0) Basophils (%) (Auto) 0.8 % (0.0-2.0) Sodium Level 137 MMOL/L (136-145) Potassium Level 3.3 MMOL/L (3.5-5.1) L Chloride Level 104 MMOL/L (98-107) Carbon Dioxide Level 25 MMOL/L (21-32) Anion Gap 8 mmol/L (5-15) Blood Urea Nitrogen 16 mg/dL (7-18) Creatinine 1.0 MG/DL (0.55-1.30) Estimat Glomerular Filtration Rate > 60 mL/min (>60) Glucose Level 85 MG/DL (74-106) Calcium Level 8.4 MG/DL (8.5-10.1) L Current Medications Medications (Trade) Dose Ordered Sig/Tisha Route PRN Reason Start Time Stop Time Status Last Admin Dose Admin Acetaminophen (Tylenol) 650 mg Q4H PRN RECTAL FEVER (temp>100.5F) 09/10/17 22:00 10/09/17 17:59 Dextrose/ Electrolytes 1,000 ml @ 100 mls/hr Q10H IV 09/10/17 21:00 10/09/17 19:59 09/13/17 08:32 Diphenhydramine HCl (Benadryl) 12.5 mg Q6H PRN IVP Itching/Pruritis 09/11/17 00:00 10/09/17 17:59 Heparin Sodium (Porcine) (Heparin 5000 units/ml) 5,000 units EVERY 12 HOURS SUBQ 09/10/17 21:00 10/09/17 20:59 09/13/17 08:33 Hydromorphone HCl (Dilaudid) 0.5 mg Q3H PRN IVP Pain Score 1-3 09/10/17 21:00 09/16/17 17:59 Ketorolac Tromethamine (Toradol 30mg) 15 mg Q6H PRN IV Moderate Pain (Pain Scale 4-6) 09/11/17 00:00 09/14/17 17:59 Morphine Sulfate (Morphine Sulfate) 4 mg Q4H PRN IVP Severe Pain (Pain Scale 7-10) 09/10/17 22:00 09/16/17 17:59 09/12/17 20:15 Ondansetron HCl (Zofran) 4 mg Q6H PRN IVP Nausea & Vomiting 09/11/17 00:00 10/09/17 17:59 09/11/17 22:58 Pantoprazole (Protonix) 40 mg Q12HR IVP 09/10/17 21:00 10/09/17 20:59 09/13/17 08:32 Piperacillin Sod/ Tazobactam Sod 3.375 gm/Sodium Chloride 110 ml @ 27.5 mls/hr EVERY 8 HOURS IVPB 09/10/17 22:00 09/15/17 21:59 09/13/17 05:24 Belkys Farrell M.D. Sep 13, 2017 10:13
--- NOTE | 2017-09-13 11:08 | General Progress Note ---
Progress Note Progress Note no acute events. doing well. passing flatus. no n/v/f/c. abd soft, nt/nd, wound c/d/i. drain minimal -npo iv fluids ng tube cont current care. Yury Pittman Sep 13, 2017 11:08
--- NOTE | 2017-09-13 11:42 | Pulmonology Progress Note ---
Assessment/Plan Problems: (1) Severe sepsis (2) Perforated ulcer Assessment/Plan iv fluids npo continue abx pt/ot check electrolytes Subjective ROS Limited/Unobtainable: No Constitutional: Reports: no symptoms HEENT: Repors: no symptoms Allergies: Coded Allergies: No Known Allergies (Unverified , 09/09/17) Objective Last 24 Hour Vital Signs Date Time Temp Pulse Resp B/P (MAP) Pulse Ox O2 Delivery O2 Flow Rate FiO2 09/13/17 08:00 98.5 77 19 123/81 99 Nasal Cannula 2.0 98.5 09/13/17 04:00 98.1 91 19 127/87 99 Nasal Cannula 2.0 98.1 09/12/17 20:45 98.7 09/12/17 20:27 98.7 78 18 128/85 95 Nasal Cannula 2.0 98.7 09/12/17 20:15 98.3 09/12/17 15:56 98.3 82 20 140/80 97 Nasal Cannula 2.0 98.3 09/12/17 12:00 97.9 71 20 130/78 97 Nasal Cannula 2.0 97.9 Intake and Output 09/12/17 09/13/17 19:00 07:00 Intake Total 1110.0 ml 337.5 ml Output Total 1310 ml 870 ml Balance -200.0 ml -532.5 ml IV Total 1110.0 ml 337.5 ml Output Urine Total 200 ml Gastric Drainage Total 1100 ml 850 ml Drainage Total 10 ml 20 ml # Voids 1 2 Objective still has ng General Appearance: WD/WN HEENT: atraumatic Respiratory/Chest: normal breath sounds Cardiovascular: normal peripheral pulses, no JVD Abdomen: soft, non tender Genitourinary: normal external genitalia Laboratory Tests 09/13/17 07:07: White Blood Count 6.5, Red Blood Count 3.55L, Hemoglobin 11.4L, Hematocrit 32.9L , Mean Corpuscular Volume 92, Mean Corpuscular Hemoglobin 32.1H, Mean Corpuscular Hemoglobin Concent 34.7, Red Cell Distribution Width 11.2L, Platelet Count 220, Mean Platelet Volume 6.6, Neutrophils (%) (Auto) 65.2, Lymphocytes (%) (Auto) 25.2, Monocytes (%) (Auto) 8.2, Eosinophils (%) (Auto) 0.7, Basophils (%) (Auto) 0.8, Sodium Level 137, Potassium Level 3.3L, Chloride Level 104, Carbon Dioxide Level 25, Anion Gap 8, Blood Urea Nitrogen 16, Creatinine 1.0, Estimat Glomerular Filtration Rate > 60, Glucose Level 85, Calcium Level 8.4L Current Medications Medications (Trade) Dose Ordered Sig/Tisha Route PRN Reason Start Time Stop Time Status Last Admin Dose Admin Acetaminophen (Tylenol) 650 mg Q4H PRN RECTAL FEVER (temp>100.5F) 09/10/17 22:00 10/09/17 17:59 Dextrose/ Electrolytes 1,000 ml @ 100 mls/hr Q10H IV 09/10/17 21:00 10/09/17 19:59 09/13/17 08:32 Diphenhydramine HCl (Benadryl) 12.5 mg Q6H PRN IVP Itching/Pruritis 09/11/17 00:00 10/09/17 17:59 Heparin Sodium (Porcine) (Heparin 5000 units/ml) 5,000 units EVERY 12 HOURS SUBQ 09/10/17 21:00 10/09/17 20:59 09/13/17 08:33 Hydromorphone HCl (Dilaudid) 0.5 mg Q3H PRN IVP Pain Score 1-3 09/10/17 21:00 09/16/17 17:59 Ketorolac Tromethamine (Toradol 30mg) 15 mg Q6H PRN IV Moderate Pain (Pain Scale 4-6) 09/11/17 00:00 09/14/17 17:59 Morphine Sulfate (Morphine Sulfate) 4 mg Q4H PRN IVP Severe Pain (Pain Scale 7-10) 09/10/17 22:00 09/16/17 17:59 09/12/17 20:15 Ondansetron HCl (Zofran) 4 mg Q6H PRN IVP Nausea & Vomiting 09/11/17 00:00 10/09/17 17:59 09/11/17 22:58 Pantoprazole (Protonix) 40 mg Q12HR IVP 09/10/17 21:00 10/09/17 20:59 09/13/17 08:32 Piperacillin Sod/ Tazobactam Sod 3.375 gm/Sodium Chloride 110 ml @ 27.5 mls/hr EVERY 8 HOURS IVPB 09/13/17 14:00 09/13/17 23:59 Gem Ashley MD Sep 13, 2017 11:42
[2017-09-13 12:00] VITALS: BP 133/88
[2017-09-13 16:00] VITALS: BP 133/83
--- NOTE | 2017-09-13 16:39 | Nephrology Progress Note ---
Assessment/Plan Assessment 1. Hypovolemic hyponatremia. 2. Hypokalemia. 3. Acute renal failure, 4. Status post perforated duodenal ulcer Plan plan continue ivf monitoring electrolyte avoid NSAID replace electrolyte Objective Objective Last 24 Hour Vital Signs Date Time Temp Pulse Resp B/P (MAP) Pulse Ox O2 Delivery O2 Flow Rate FiO2 09/13/17 12:00 98.5 69 19 133/88 99 Nasal Cannula 2.0 98.5 09/13/17 08:00 98.5 77 19 123/81 99 Nasal Cannula 2.0 98.5 09/13/17 04:00 98.1 91 19 127/87 99 Nasal Cannula 2.0 98.1 09/12/17 20:45 98.7 09/12/17 20:27 98.7 78 18 128/85 95 Nasal Cannula 2.0 98.7 09/12/17 20:15 98.3 Intake and Output 09/12/17 09/13/17 19:00 07:00 Intake Total 1110.0 ml 337.5 ml Output Total 1310 ml 870 ml Balance -200.0 ml -532.5 ml IV Total 1110.0 ml 337.5 ml Output Urine Total 200 ml Gastric Drainage Total 1100 ml 850 ml Drainage Total 10 ml 20 ml # Voids 1 2 Laboratory Tests 09/13/17 07:07: White Blood Count 6.5, Red Blood Count 3.55L, Hemoglobin 11.4L, Hematocrit 32.9L , Mean Corpuscular Volume 92, Mean Corpuscular Hemoglobin 32.1H, Mean Corpuscular Hemoglobin Concent 34.7, Red Cell Distribution Width 11.2L, Platelet Count 220, Mean Platelet Volume 6.6, Neutrophils (%) (Auto) 65.2, Lymphocytes (%) (Auto) 25.2, Monocytes (%) (Auto) 8.2, Eosinophils (%) (Auto) 0.7, Basophils (%) (Auto) 0.8, Sodium Level 137, Potassium Level 3.3L, Chloride Level 104, Carbon Dioxide Level 25, Anion Gap 8, Blood Urea Nitrogen 16, Creatinine 1.0, Estimat Glomerular Filtration Rate > 60, Glucose Level 85, Calcium Level 8.4L Height (Feet): 5 Height (Inches): 11.00 Weight (Pounds): 169 Objective HEAD AND NECK: No JVP. No LAD. No thyromegaly. Extraocular movement sintact. Pupils are reactive to light and accommodation. LUNGS: Clear to auscultation. CARDIAC: Regular rate and rhythm. S1 and S2. No murmur. No rub. ABDOMEN: Status post exploratory laparotomy and diffusely tender, guarding, and bowel sounds are decreased. EXTREMITIES: No edema. No clubbing. No cyanosis. Gogo Velázquez MD Sep 13, 2017 16:39
[2017-09-13] MEDS: Morphine Sulfate 4mg/ml Inj IVP PRN (19:56)
[2017-09-13 20:00] VITALS: BP 135/83
[2017-09-14] MEDS: D5 1/2NS w/KCl 20mEq 1,000 ML IV SCH ×3 (03:00→23:49)
[2017-09-14 03:08] VITALS: BP 136/77
--- NOTE | 2017-09-14 07:42 | General Progress Note ---
Assessment/Plan Problem List: (1) Perforated ulcer ICD Codes: K27.5 - Chronic or unspecified peptic ulcer, site unspecified, with perforation SNOMED: 54275165 (2) Severe sepsis ICD Codes: A41.9 - Sepsis, unspecified organism; R65.20 - Severe sepsis without septic shock SNOMED: 81932902 (3) Free intraperitoneal air ICD Codes: K66.8 - Other specified disorders of peritoneum SNOMED: 04669551 (4) Perforated abdominal viscus SNOMED: 395445430 (5) Abdominal pain ICD Codes: R10.9 - Unspecified abdominal pain SNOMED: 59552984 Status: unchanged Assessment/Plan ot pt diet abx pain control gi sx f/u cbc bmp am Subjective Constitutional: Reports: weakness Allergies: Coded Allergies: No Known Allergies (Unverified , 09/09/17) All Systems: reviewed and negative except above Subjective ng no bm in bed Objective Last 24 Hour Vital Signs Date Time Temp Pulse Resp B/P (MAP) Pulse Ox O2 Delivery O2 Flow Rate FiO2 09/14/17 03:08 97.0 67 18 136/77 99 Room Air 97.0 09/13/17 20:00 98.6 79 20 135/83 100 Nasal Cannula 2.0 98.6 09/13/17 19:56 98.8 09/13/17 16:00 98.8 77 19 133/83 99 Nasal Cannula 2.0 98.8 09/13/17 12:00 98.5 69 19 133/88 99 Nasal Cannula 2.0 98.5 09/13/17 08:00 98.5 77 19 123/81 99 Nasal Cannula 2.0 98.5 Intake and Output 09/13/17 09/14/17 19:00 07:00 Intake Total 1210.0 ml Output Total 500 ml 460 ml Balance -500 ml 750.0 ml IV Total 1210.0 ml Output Urine Total 400 ml Gastric Drainage Total 500 ml 50 ml Drainage Total 10 ml # Voids 2 Height (Feet): 5 Height (Inches): 11.00 Weight (Pounds): 169 General Appearance: lethargic EENT: normal ENT inspection Neck: normal alignment Cardiovascular: normal peripheral pulses, normal rate, regular rhythm Respiratory/Chest: chest wall non-tender, lungs clear, normal breath sounds Abdomen: soft, hypoactive bowel sounds Extremities: normal inspection Edema: no edema noted Arm (L), no edema noted Arm (R), no edema noted Leg (L), no edema noted Leg (R), no edema noted Pedal (L), no edema noted Pedal (R), no edema noted Generalized Neurologic: responsive, motor weakness Skin: normal pigmentation, warm/dry Real Ortiz DO Sep 14, 2017 07:42
[2017-09-14 08:00] VITALS: BP 137/84
[2017-09-14] MEDS: Pantoprazole Inj IVP SCH ×2 (08:23→20:18)
[2017-09-14] MEDS: Heparin 5000 units/ml inj SUBQ SCH ×2 (08:25→20:19)
--- NOTE | 2017-09-14 11:02 | Pulmonology Progress Note ---
Assessment/Plan Problems: (1) Severe sepsis (2) Perforated ulcer Assessment/Plan ng to suction iv fluids npo continue abx pt/ot check electrolytes Subjective ROS Limited/Unobtainable: No Allergies: Coded Allergies: No Known Allergies (Unverified , 09/09/17) Objective Last 24 Hour Vital Signs Date Time Temp Pulse Resp B/P (MAP) Pulse Ox O2 Delivery O2 Flow Rate FiO2 09/14/17 08:00 97.7 67 20 137/84 100 Room Air 97.7 09/14/17 03:08 97.0 67 18 136/77 99 Room Air 97.0 09/13/17 20:00 98.6 79 20 135/83 100 Nasal Cannula 2.0 98.6 09/13/17 19:56 98.8 09/13/17 16:00 98.8 77 19 133/83 99 Nasal Cannula 2.0 98.8 09/13/17 12:00 98.5 69 19 133/88 99 Nasal Cannula 2.0 98.5 Intake and Output 09/13/17 09/14/17 19:00 07:00 Intake Total 1210.0 ml Output Total 500 ml 460 ml Balance -500 ml 750.0 ml IV Total 1210.0 ml Output Urine Total 400 ml Gastric Drainage Total 500 ml 50 ml Drainage Total 10 ml # Voids 2 Objective still has ng General Appearance: WD/WN HEENT: normocephalic Respiratory/Chest: chest wall non-tender, normal breath sounds Cardiovascular: normal peripheral pulses, normal rate Extremities: no cyanosis Current Medications Medications (Trade) Dose Ordered Sig/Tisha Route PRN Reason Start Time Stop Time Status Last Admin Dose Admin Acetaminophen (Tylenol) 650 mg Q4H PRN RECTAL FEVER (temp>100.5F) 09/10/17 22:00 10/09/17 17:59 Dextrose/ Electrolytes 1,000 ml @ 100 mls/hr Q10H IV 09/10/17 21:00 10/09/17 19:59 09/14/17 03:00 Diphenhydramine HCl (Benadryl) 12.5 mg Q6H PRN IVP Itching/Pruritis 09/11/17 00:00 10/09/17 17:59 Heparin Sodium (Porcine) (Heparin 5000 units/ml) 5,000 units EVERY 12 HOURS SUBQ 09/10/17 21:00 10/09/17 20:59 09/14/17 08:25 Hydromorphone HCl (Dilaudid) 0.5 mg Q3H PRN IVP Pain Score 1-3 09/10/17 21:00 09/16/17 17:59 Ketorolac Tromethamine (Toradol 30mg) 15 mg Q6H PRN IV Moderate Pain (Pain Scale 4-6) 09/11/17 00:00 09/14/17 17:59 Morphine Sulfate (Morphine Sulfate) 4 mg Q4H PRN IVP Severe Pain (Pain Scale 7-10) 09/10/17 22:00 09/16/17 17:59 09/13/17 19:56 Ondansetron HCl (Zofran) 4 mg Q6H PRN IVP Nausea & Vomiting 09/11/17 00:00 10/09/17 17:59 09/11/17 22:58 Pantoprazole (Protonix) 40 mg Q12HR IVP 09/10/17 21:00 10/09/17 20:59 09/14/17 08:23 Gem Ashley MD Sep 14, 2017 11:02
[2017-09-14 11:40] LABS: BASOPHILS % (AUTO) 1.4 % (0.0-2.0); EOSINOPHILS % (AUTO) 0.8 % (0.0-3.0); HEMOGLOBIN 11.3 G/DL (14.2-18.0); LYMPHOCYTES % (AUTO) 26.7 % (20.0-45.0); MEAN CORPUSCULAR VOLUME 92 FL (80-99); MONOCYTES % (AUTO) 13.5 % (1.0-10.0); NEUTROPHILS % (AUTO) 57.6 % (45.0-75.0); PLATELET COUNT 199 K/UL (150-450); RED BLOOD COUNT 3.45 M/UL (4.70-6.10); RED CELL DISTRIBUTION WIDTH 11.2 % (11.6-14.8)
[2017-09-14 12:00] VITALS: BP 141/84
[2017-09-14 12:03] LABS: ANION GAP 10 mmol/L (5-15); BLOOD UREA NITROGEN 15 mg/dL (7-18); CALCIUM 8.4 MG/DL (8.5-10.1); CARBON DIOXIDE 22 MMOL/L (21-32); CHLORIDE 104 MMOL/L (98-107); CREATININE 0.8 MG/DL (0.55-1.30); SODIUM 136 MMOL/L (136-145)
[2017-09-14] MEDS: Morphine Sulfate 4mg/ml Inj IVP PRN ×2 (12:59→20:21)
--- NOTE | 2017-09-14 14:20 | Cardiology Progress Note ---
Assessment/Plan Assessment/Plan 1. Sinus tachycardia, resolved, continue hydration and electrolyte replacement. 2. Perforated ulcer status post laparotomy and repair. 3. Severe hypovolemia and electrolyte derangement, resolved. Subjective Subjective Not on the telemetry unit. Objective Last 24 Hour Vital Signs Date Time Temp Pulse Resp B/P (MAP) Pulse Ox O2 Delivery O2 Flow Rate FiO2 09/14/17 12:59 97.7 09/14/17 12:00 97.2 70 20 141/84 100 Room Air 97.2 09/14/17 08:00 97.7 67 20 137/84 100 Room Air 97.7 09/14/17 03:08 97.0 67 18 136/77 99 Room Air 97.0 09/13/17 20:00 98.6 79 20 135/83 100 Nasal Cannula 2.0 98.6 09/13/17 19:56 98.8 09/13/17 16:00 98.8 77 19 133/83 99 Nasal Cannula 2.0 98.8 Intake and Output 09/13/17 09/14/17 19:00 07:00 Intake Total 1310.0 ml Output Total 500 ml 460 ml Balance -500 ml 850.0 ml IV Total 1310.0 ml Output Urine Total 400 ml Gastric Drainage Total 500 ml 50 ml Drainage Total 10 ml # Voids 2 Laboratory Tests Test 09/14/17 10:38 White Blood Count 6.0 K/UL (4.8-10.8) Red Blood Count 3.45 M/UL (4.70-6.10) L Hemoglobin 11.3 G/DL (14.2-18.0) L Hematocrit 32.0 % (42.0-52.0) L Mean Corpuscular Volume 92 FL (80-99) Mean Corpuscular Hemoglobin 32.8 PG (27.0-31.0) H Mean Corpuscular Hemoglobin Concent 35.5 G/DL (32.0-36.0) Red Cell Distribution Width 11.2 % (11.6-14.8) L Platelet Count 199 K/UL (150-450) Mean Platelet Volume 6.5 FL (6.5-10.1) Neutrophils (%) (Auto) 57.6 % (45.0-75.0) Lymphocytes (%) (Auto) 26.7 % (20.0-45.0) Monocytes (%) (Auto) 13.5 % (1.0-10.0) H Eosinophils (%) (Auto) 0.8 % (0.0-3.0) Basophils (%) (Auto) 1.4 % (0.0-2.0) Sodium Level 136 MMOL/L (136-145) Potassium Level 4.0 MMOL/L (3.5-5.1) Chloride Level 104 MMOL/L (98-107) Carbon Dioxide Level 22 MMOL/L (21-32) Anion Gap 10 mmol/L (5-15) Blood Urea Nitrogen 15 mg/dL (7-18) Creatinine 0.8 MG/DL (0.55-1.30) Estimat Glomerular Filtration Rate > 60 mL/min (>60) Glucose Level 113 MG/DL (74-106) H Calcium Level 8.4 MG/DL (8.5-10.1) L Objective Mayur Scott MD Sep 14, 2017 14:20
[2017-09-14 16:00] VITALS: BP 145/85
--- NOTE | 2017-09-14 18:13 | General Progress Note ---
Progress Note Progress Note doing well. no acute events. pain improved. passing flatus. ambulatory. no n /v/f/c. exam benign. drain with minimal serous output ng tube with decreasing bilious output. NG tube off suction - keep tube in for now start trial of clear liquids AM labs ambulate and out of bed. Yury Pittman Sep 14, 2017 18:13
[2017-09-14 20:00] VITALS: BP 151/88
[2017-09-15] MEDS: Morphine Sulfate 4mg/ml Inj IVP PRN ×2 (01:32→16:23)
[2017-09-15 08:00] VITALS: BP 137/85
[2017-09-15] MEDS: Pantoprazole Inj IVP SCH ×2 (08:49→20:33)
[2017-09-15] MEDS: Heparin 5000 units/ml inj SUBQ SCH ×2 (08:50→20:34)
[2017-09-15 10:15] LABS: BASOPHILS % (AUTO) 1.6 % (0.0-2.0); EOSINOPHILS % (AUTO) 0.5 % (0.0-3.0); HEMATOCRIT 34.1 % (42.0-52.0); HEMOGLOBIN 11.6 G/DL (14.2-18.0); LYMPHOCYTES % (AUTO) 26.4 % (20.0-45.0); MEAN CORPUSCULAR VOLUME 92 FL (80-99); NEUTROPHILS % (AUTO) 57.6 % (45.0-75.0); PLATELET COUNT 279 K/UL (150-450); RED BLOOD COUNT 3.71 M/UL (4.70-6.10)
[2017-09-15 10:17] LABS: ANION GAP 8 mmol/L (5-15); BLOOD UREA NITROGEN 6 mg/dL (7-18); CALCIUM 8.3 MG/DL (8.5-10.1); CARBON DIOXIDE 24 MMOL/L (21-32); CHLORIDE 104 MMOL/L (98-107); CREATININE 0.8 MG/DL (0.55-1.30); POTASSIUM 3.7 MMOL/L (3.5-5.1); SODIUM 136 MMOL/L (136-145)
--- NOTE | 2017-09-15 10:57 | GI Progress Note ---
Assessment/Plan Problems: (1) Abdominal pain ICD Codes: R10.9 - Unspecified abdominal pain SNOMED: 30245046 (2) Perforated abdominal viscus SNOMED: 300068046 (3) Free intraperitoneal air ICD Codes: K66.8 - Other specified disorders of peritoneum SNOMED: 36971682 (4) Severe sepsis ICD Codes: A41.9 - Sepsis, unspecified organism; R65.20 - Severe sepsis without septic shock SNOMED: 21210598 (5) Perforated ulcer ICD Codes: K27.5 - Chronic or unspecified peptic ulcer, site unspecified, with perforation SNOMED: 37277033 Status: stable Status Narrative Discussed with Dr. Henry. Assessment/Plan s/p exploratory laparotomy, antrectomy, gastrojejunostomy (Billroth 2 procedure) hyperchromic anemia electrolyte imbalance doing well. no acute events. pain improved. passing flatus. ambulatory. no n /v/f/c. exam benign. drain with minimal serous output ng tube with decreasing bilious output. NG tube off suction - keep tube in for now diet per surgery AM labs pain mgmt ambulate and out of bed. fu labs Subjective Gastrointestinal/Abdominal: Reports: abdominal pain Objective Last 24 Hour Vital Signs Date Time Temp Pulse Resp B/P (MAP) Pulse Ox O2 Delivery O2 Flow Rate FiO2 09/15/17 08:00 97.6 77 16 137/85 100 Room Air 97.6 09/15/17 01:32 97.7 09/14/17 20:51 97.7 09/14/17 20:00 98.4 70 20 151/88 100 Room Air 98.4 09/14/17 16:00 97.7 70 20 145/85 100 Room Air 97.7 09/14/17 12:59 97.7 09/14/17 12:00 97.2 70 20 141/84 100 Room Air 97.2 Intake and Output 09/14/17 09/15/17 19:00 07:00 Intake Total 1200 ml 1100 ml Output Total 1118 ml Balance 1200 ml -18 ml IV Total 1200 ml 1100 ml Output Urine Total 1100 ml Drainage Total 18 ml # Voids 3 Laboratory Tests Test 09/15/17 09:45 White Blood Count 6.0 K/UL (4.8-10.8) Red Blood Count 3.71 M/UL (4.70-6.10) L Hemoglobin 11.6 G/DL (14.2-18.0) L Hematocrit 34.1 % (42.0-52.0) L Mean Corpuscular Volume 92 FL (80-99) Mean Corpuscular Hemoglobin 31.3 PG (27.0-31.0) H Mean Corpuscular Hemoglobin Concent 34.1 G/DL (32.0-36.0) Red Cell Distribution Width 11.0 % (11.6-14.8) L Platelet Count 279 K/UL (150-450) Mean Platelet Volume 5.8 FL (6.5-10.1) L Neutrophils (%) (Auto) 57.6 % (45.0-75.0) Lymphocytes (%) (Auto) 26.4 % (20.0-45.0) Monocytes (%) (Auto) 14.0 % (1.0-10.0) H Eosinophils (%) (Auto) 0.5 % (0.0-3.0) Basophils (%) (Auto) 1.6 % (0.0-2.0) Sodium Level 136 MMOL/L (136-145) Potassium Level 3.7 MMOL/L (3.5-5.1) Chloride Level 104 MMOL/L (98-107) Carbon Dioxide Level 24 MMOL/L (21-32) Anion Gap 8 mmol/L (5-15) Blood Urea Nitrogen 6 mg/dL (7-18) L Creatinine 0.8 MG/DL (0.55-1.30) Estimat Glomerular Filtration Rate > 60 mL/min (>60) Glucose Level 120 MG/DL (74-106) H Calcium Level 8.3 MG/DL (8.5-10.1) L Height (Feet): 5 Height (Inches): 11.00 Weight (Pounds): 169 General Appearance: WD/WN, no apparent distress, alert Cardiovascular: normal rate Respiratory/Chest: normal breath sounds, no respiratory distress Abdominal Exam: normal bowel sounds, non tender, soft, other - NGT Extremities: normal range of motion, non-tender Walter Molina NP Sep 15, 2017 10:57
[2017-09-15] MEDS: D5 1/2NS w/KCl 20mEq 1,000 ML IV SCH ×2 (11:16→21:30)
[2017-09-15 12:00] VITALS: BP 141/96
--- NOTE | 2017-09-15 12:23 | General Progress Note ---
Assessment/Plan Problem List: (1) Perforated ulcer ICD Codes: K27.5 - Chronic or unspecified peptic ulcer, site unspecified, with perforation SNOMED: 98472948 (2) Severe sepsis ICD Codes: A41.9 - Sepsis, unspecified organism; R65.20 - Severe sepsis without septic shock SNOMED: 53120907 (3) Free intraperitoneal air ICD Codes: K66.8 - Other specified disorders of peritoneum SNOMED: 80793205 (4) Perforated abdominal viscus SNOMED: 149495680 (5) Abdominal pain ICD Codes: R10.9 - Unspecified abdominal pain SNOMED: 47644960 Status: stable, progressing Assessment/Plan ot pt diet abx pain control gi sx f/u cbc bmp am Subjective Constitutional: Reports: weakness Allergies: Coded Allergies: No Known Allergies (Unverified , 09/09/17) All Systems: reviewed and negative except above Subjective ate ok, no bm Objective Last 24 Hour Vital Signs Date Time Temp Pulse Resp B/P (MAP) Pulse Ox O2 Delivery O2 Flow Rate FiO2 09/15/17 08:00 97.6 77 16 137/85 100 Room Air 97.6 09/15/17 01:32 97.7 09/14/17 20:51 97.7 09/14/17 20:00 98.4 70 20 151/88 100 Room Air 98.4 09/14/17 16:00 97.7 70 20 145/85 100 Room Air 97.7 09/14/17 12:59 97.7 Intake and Output 09/14/17 09/15/17 19:00 07:00 Intake Total 1200 ml 1100 ml Output Total 1118 ml Balance 1200 ml -18 ml IV Total 1200 ml 1100 ml Output Urine Total 1100 ml Drainage Total 18 ml # Voids 3 Laboratory Tests 09/15/17 09:45: White Blood Count 6.0, Red Blood Count 3.71L, Hemoglobin 11.6L, Hematocrit 34.1L , Mean Corpuscular Volume 92, Mean Corpuscular Hemoglobin 31.3H, Mean Corpuscular Hemoglobin Concent 34.1, Red Cell Distribution Width 11.0L, Platelet Count 279, Mean Platelet Volume 5.8L, Neutrophils (%) (Auto) 57.6, Lymphocytes (%) (Auto) 26.4, Monocytes (%) (Auto) 14.0H, Eosinophils (%) (Auto) 0.5, Basophils (%) (Auto) 1.6, Sodium Level 136, Potassium Level 3.7, Chloride Level 104, Carbon Dioxide Level 24, Anion Gap 8, Blood Urea Nitrogen 6L, Creatinine 0.8, Estimat Glomerular Filtration Rate > 60, Glucose Level 120H, Calcium Level 8.3L Height (Feet): 5 Height (Inches): 11.00 Weight (Pounds): 169 General Appearance: lethargic EENT: normal ENT inspection Neck: normal alignment Cardiovascular: normal peripheral pulses, normal rate, regular rhythm Respiratory/Chest: chest wall non-tender, lungs clear, normal breath sounds Abdomen: hypoactive bowel sounds Extremities: normal inspection Edema: no edema noted Arm (L), no edema noted Arm (R), no edema noted Leg (L), no edema noted Leg (R), no edema noted Pedal (L), no edema noted Pedal (R), no edema noted Generalized Neurologic: responsive, motor weakness Skin: normal pigmentation, warm/dry Real Ortiz DO Sep 15, 2017 12:23
--- NOTE | 2017-09-15 14:52 | Pulmonology Progress Note ---
Assessment/Plan Problems: (1) Severe sepsis (2) Perforated ulcer Assessment/Plan iv fluids advance diet continue abx pt/ot check electrolytes Subjective ROS Limited/Unobtainable: No Interval Events: on clear liquid diet Constitutional: Reports: no symptoms HEENT: Repors: no symptoms Allergies: Coded Allergies: No Known Allergies (Unverified , 09/09/17) Objective Last 24 Hour Vital Signs Date Time Temp Pulse Resp B/P (MAP) Pulse Ox O2 Delivery O2 Flow Rate FiO2 09/15/17 12:00 98.0 76 17 141/96 100 Room Air 98.0 09/15/17 08:00 97.6 77 16 137/85 100 Room Air 97.6 09/15/17 01:32 97.7 09/14/17 20:51 97.7 09/14/17 20:00 98.4 70 20 151/88 100 Room Air 98.4 09/14/17 16:00 97.7 70 20 145/85 100 Room Air 97.7 Intake and Output 09/14/17 09/15/17 19:00 07:00 Intake Total 1200 ml 1100 ml Output Total 1118 ml Balance 1200 ml -18 ml IV Total 1200 ml 1100 ml Output Urine Total 1100 ml Drainage Total 18 ml # Voids 3 HEENT: normocephalic, atraumatic Respiratory/Chest: chest wall non-tender, lungs clear, normal breath sounds Cardiovascular: normal peripheral pulses, normal rate, regularly irregular Abdomen: soft, non tender, no organomegaly Genitourinary: normal external genitalia Extremities: no clubbing Skin: no lesions Neurologic/Psychiatric: solar/[employer]able energy 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 II-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 grossly normal Lymphatic: no neck adenopathy Laboratory Tests 09/15/17 09:45: White Blood Count 6.0, Red Blood Count 3.71L, Hemoglobin 11.6L, Hematocrit 34.1L , Mean Corpuscular Volume 92, Mean Corpuscular Hemoglobin 31.3H, Mean Corpuscular Hemoglobin Concent 34.1, Red Cell Distribution Width 11.0L, Platelet Count 279, Mean Platelet Volume 5.8L, Neutrophils (%) (Auto) 57.6, Lymphocytes (%) (Auto) 26.4, Monocytes (%) (Auto) 14.0H, Eosinophils (%) (Auto) 0.5, Basophils (%) (Auto) 1.6, Sodium Level 136, Potassium Level 3.7, Chloride Level 104, Carbon Dioxide Level 24, Anion Gap 8, Blood Urea Nitrogen 6L, Creatinine 0.8, Estimat Glomerular Filtration Rate > 60, Glucose Level 120H, Calcium Level 8.3L Current Medications Medications (Trade) Dose Ordered Sig/Tisha Route PRN Reason Start Time Stop Time Status Last Admin Dose Admin Acetaminophen (Tylenol) 650 mg Q4H PRN RECTAL FEVER (temp>100.5F) 09/10/17 22:00 10/09/17 17:59 Dextrose/ Electrolytes 1,000 ml @ 100 mls/hr Q10H IV 09/10/17 21:00 10/09/17 19:59 09/15/17 11:16 Diphenhydramine HCl (Benadryl) 12.5 mg Q6H PRN IVP Itching/Pruritis 09/11/17 00:00 10/09/17 17:59 Heparin Sodium (Porcine) (Heparin 5000 units/ml) 5,000 units EVERY 12 HOURS SUBQ 09/10/17 21:00 10/09/17 20:59 09/15/17 08:50 Hydromorphone HCl (Dilaudid) 0.5 mg Q3H PRN IVP Pain Score 1-3 09/10/17 21:00 09/16/17 17:59 Morphine Sulfate (Morphine Sulfate) 4 mg Q4H PRN IVP Severe Pain (Pain Scale 7-10) 09/10/17 22:00 09/16/17 17:59 09/15/17 01:32 Ondansetron HCl (Zofran) 4 mg Q6H PRN IVP Nausea & Vomiting 09/11/17 00:00 10/09/17 17:59 09/11/17 22:58 Pantoprazole (Protonix) 40 mg Q12HR IVP 09/10/17 21:00 10/09/17 20:59 09/15/17 08:49 Gem Ashley MD Sep 15, 2017 14:52
--- NOTE | 2017-09-15 15:29 | General Progress Note ---
Progress Note Progress Note Surgery: doing well. bowel function returning. tolerating clears. d/c ng tube full liquids d/c plans for friday Yury Pittman Sep 15, 2017 15:29
--- NOTE | 2017-09-15 15:45 | Infectious Diseases Prog Note ---
Assessment/Plan Assessment/Plan Abx: Ancef x1 09/09 Zosyn 09/09- Assessment: Perforated duodenal ulcer -s/p exploratory laparotomy, antrectomy, gastrojejunostomy (Billroth 2 procedure) 09/09 -OR cx Neg -CT abd/p: Evidence of a perforation of a hollow viscus. Moderate free air is in the upper abdomen. Moderate free fluid. There is dilatation of the stomach with apparent narrowing in the first portion of duodenum with suspicion of a mucosal ulcer. Suspect this is the area of perforation due to [place] ulceration or ulcerative tumor. Leukocytosis, resolved- 2ry to above (reactive, post-op) -afebrile -u/a neg -CXR 09/12: No acute findings -BCx Neg HAM, resolved Plan: -Continue to monitor off abx -09/13 SP sushant-op Zosyn #5 -Monitor CBC/BMP, temperatures -wound care -aspiration precautions -Sx f/u Thank you for this consultation. Will continue to follow along with you. Discussed with RN. Subjective Allergies: Coded Allergies: No Known Allergies (Unverified , 09/09/17) Subjective afebrile no leukocytosis Bcx Neg on full liquid diet off abx now Objective Vital Signs Last 24 Hour Vital Signs Date Time Temp Pulse Resp B/P (MAP) Pulse Ox O2 Delivery O2 Flow Rate FiO2 09/15/17 12:00 98.0 76 17 141/96 100 Room Air 98.0 09/15/17 08:00 97.6 77 16 137/85 100 Room Air 97.6 09/15/17 01:32 97.7 09/14/17 20:51 97.7 09/14/17 20:00 98.4 70 20 151/88 100 Room Air 98.4 09/14/17 16:00 97.7 70 20 145/85 100 Room Air 97.7 Height (Feet): 5 Height (Inches): 11.00 Weight (Pounds): 169 Objective General Appearance: WD/WN Lines, tubes and drains: peripheral HEENT: normocephalic, anicteric Neck: non-tender, normal alignment Respiratory/Chest: chest wall non-tender, lungs clear Breasts: no masses Cardiovascular/Chest: normal peripheral pulses Abdomen: mid line surgical incision, no signs of infection Laboratory Tests Test 09/15/17 09:45 White Blood Count 6.0 K/UL (4.8-10.8) Red Blood Count 3.71 M/UL (4.70-6.10) L Hemoglobin 11.6 G/DL (14.2-18.0) L Hematocrit 34.1 % (42.0-52.0) L Mean Corpuscular Volume 92 FL (80-99) Mean Corpuscular Hemoglobin 31.3 PG (27.0-31.0) H Mean Corpuscular Hemoglobin Concent 34.1 G/DL (32.0-36.0) Red Cell Distribution Width 11.0 % (11.6-14.8) L Platelet Count 279 K/UL (150-450) Mean Platelet Volume 5.8 FL (6.5-10.1) L Neutrophils (%) (Auto) 57.6 % (45.0-75.0) Lymphocytes (%) (Auto) 26.4 % (20.0-45.0) Monocytes (%) (Auto) 14.0 % (1.0-10.0) H Eosinophils (%) (Auto) 0.5 % (0.0-3.0) Basophils (%) (Auto) 1.6 % (0.0-2.0) Sodium Level 136 MMOL/L (136-145) Potassium Level 3.7 MMOL/L (3.5-5.1) Chloride Level 104 MMOL/L (98-107) Carbon Dioxide Level 24 MMOL/L (21-32) Anion Gap 8 mmol/L (5-15) Blood Urea Nitrogen 6 mg/dL (7-18) L Creatinine 0.8 MG/DL (0.55-1.30) Estimat Glomerular Filtration Rate > 60 mL/min (>60) Glucose Level 120 MG/DL (74-106) H Calcium Level 8.3 MG/DL (8.5-10.1) L Current Medications Medications (Trade) Dose Ordered Sig/Tisha Route PRN Reason Start Time Stop Time Status Last Admin Dose Admin Acetaminophen (Tylenol) 650 mg Q4H PRN RECTAL FEVER (temp>100.5F) 09/10/17 22:00 10/09/17 17:59 Acetaminophen/ Hydrocodone Bitart ([place] 5/325) 1 tab Q4H PRN ORAL Moderate Pain (Pain Scale 4-6) 09/15/17 15:30 09/22/17 15:29 UNV Dextrose/ Electrolytes 1,000 ml @ 100 mls/hr Q10H IV 09/10/17 21:00 10/09/17 19:59 09/15/17 11:16 Diphenhydramine HCl (Benadryl) 12.5 mg Q6H PRN IVP Itching/Pruritis 09/11/17 00:00 10/09/17 17:59 Heparin Sodium (Porcine) (Heparin 5000 units/ml) 5,000 units EVERY 12 HOURS SUBQ 09/10/17 21:00 10/09/17 20:59 09/15/17 08:50 Hydromorphone HCl (Dilaudid) 0.5 mg Q3H PRN IVP Pain Score 1-3 09/10/17 21:00 09/16/17 17:59 Morphine Sulfate (Morphine Sulfate) 4 mg Q4H PRN IVP Severe Pain (Pain Scale 7-10) 09/10/17 22:00 09/16/17 17:59 09/15/17 01:32 Ondansetron HCl (Zofran) 4 mg Q6H PRN IVP Nausea & Vomiting 09/11/17 00:00 10/09/17 17:59 09/11/17 22:58 Pantoprazole (Protonix) 40 mg DAILY ORAL 09/16/17 09:00 10/16/17 08:59 UNV Pantoprazole (Protonix) 40 mg Q12HR IVP 09/10/17 21:00 10/09/17 20:59 09/15/17 08:49 Belkys Farrell M.D. Sep 15, 2017 15:45
[2017-09-15 16:00] VITALS: BP 133/85
[2017-09-15] MEDS ORDERED: Hydromorphone 0.5mg/0.5ml inj IVP PRN (16:00)
--- NOTE | 2017-09-15 16:13 | Nephrology Progress Note ---
Assessment/Plan Assessment 1. Hypovolemic hyponatremia. 2. Hypokalemia. 3. Acute renal failure, 4. Status post perforated duodenal ulcer Plan plan continue ivf monitoring electrolyte avoid NSAID replace electrolyte Subjective Constitutional: Reports: no symptoms HEENT: Reports: no symptoms Genitourinary: Reports: no symptoms Neurologic/Psychiatric: Reports: no symptoms Objective Objective Last 24 Hour Vital Signs Date Time Temp Pulse Resp B/P (MAP) Pulse Ox O2 Delivery O2 Flow Rate FiO2 09/15/17 12:00 98.0 76 17 141/96 100 Room Air 98.0 09/15/17 08:00 97.6 77 16 137/85 100 Room Air 97.6 09/15/17 01:32 97.7 09/14/17 20:51 97.7 09/14/17 20:00 98.4 70 20 151/88 100 Room Air 98.4 Intake and Output 09/14/17 09/15/17 19:00 07:00 Intake Total 1200 ml 1100 ml Output Total 1118 ml Balance 1200 ml -18 ml IV Total 1200 ml 1100 ml Output Urine Total 1100 ml Drainage Total 18 ml # Voids 3 Laboratory Tests 09/15/17 09:45: White Blood Count 6.0, Red Blood Count 3.71L, Hemoglobin 11.6L, Hematocrit 34.1L , Mean Corpuscular Volume 92, Mean Corpuscular Hemoglobin 31.3H, Mean Corpuscular Hemoglobin Concent 34.1, Red Cell Distribution Width 11.0L, Platelet Count 279, Mean Platelet Volume 5.8L, Neutrophils (%) (Auto) 57.6, Lymphocytes (%) (Auto) 26.4, Monocytes (%) (Auto) 14.0H, Eosinophils (%) (Auto) 0.5, Basophils (%) (Auto) 1.6, Sodium Level 136, Potassium Level 3.7, Chloride Level 104, Carbon Dioxide Level 24, Anion Gap 8, Blood Urea Nitrogen 6L, Creatinine 0.8, Estimat Glomerular Filtration Rate > 60, Glucose Level 120H, Calcium Level 8.3L Height (Feet): 5 Height (Inches): 11.00 Weight (Pounds): 169 Objective HEAD AND NECK: No JVP. No LAD. No thyromegaly. Extraocular movement sintact. Pupils are reactive to light and accommodation. LUNGS: Clear to auscultation. CARDIAC: Regular rate and rhythm. S1 and S2. No murmur. No rub. ABDOMEN: Status post exploratory laparotomy and diffusely tender, guarding, and bowel sounds are decreased. EXTREMITIES: No edema. No clubbing. No cyanosis. Gogo Velázquez MD Sep 15, 2017 16:13
[2017-09-15 20:00] VITALS: BP 130/80
[2017-09-16] MEDS: Morphine Sulfate 4mg/ml Inj IVP PRN (01:10)
[2017-09-16] MEDS: D5 1/2NS w/KCl 20mEq 1,000 ML IV SCH (06:41)
[2017-09-16 08:00] VITALS: BP 124/84
[2017-09-16 08:19] LABS: BASOPHILS % (AUTO) 1.8 % (0.0-2.0); EOSINOPHILS % (AUTO) 1.2 % (0.0-3.0); HEMATOCRIT 35.6 % (42.0-52.0); HEMOGLOBIN 12.8 G/DL (14.2-18.0); LYMPHOCYTES % (AUTO) 27.5 % (20.0-45.0); MEAN CORPUSCULAR VOLUME 92 FL (80-99); MONOCYTES % (AUTO) 12.3 % (1.0-10.0); NEUTROPHILS % (AUTO) 57.3 % (45.0-75.0); PLATELET COUNT 313 K/UL (150-450); RED BLOOD COUNT 3.85 M/UL (4.70-6.10); WHITE BLOOD COUNT 5.3 K/UL (4.8-10.8)
[2017-09-16] MEDS: Heparin 5000 units/ml inj SUBQ SCH ×2 (08:41→20:13)
[2017-09-16 09:01] LABS: ANION GAP 8 mmol/L (5-15); BLOOD UREA NITROGEN 4 mg/dL (7-18); CALCIUM 8.6 MG/DL (8.5-10.1); CARBON DIOXIDE 25 MMOL/L (21-32); CHLORIDE 102 MMOL/L (98-107); CREATININE 0.9 MG/DL (0.55-1.30); POTASSIUM 3.6 MMOL/L (3.5-5.1); SODIUM 135 MMOL/L (136-145)
--- NOTE | 2017-09-16 10:42 | GI Progress Note ---
Assessment/Plan Problems: (1) Abdominal pain ICD Codes: R10.9 - Unspecified abdominal pain SNOMED: 51850373 (2) Perforated abdominal viscus SNOMED: 671078713 (3) Free intraperitoneal air ICD Codes: K66.8 - Other specified disorders of peritoneum SNOMED: 75642709 (4) Severe sepsis ICD Codes: A41.9 - Sepsis, unspecified organism; R65.20 - Severe sepsis without septic shock SNOMED: 94842081 (5) Perforated ulcer ICD Codes: K27.5 - Chronic or unspecified peptic ulcer, site unspecified, with perforation SNOMED: 39244862 Status: progressing Status Narrative Discussed with Dr. Henry. Assessment/Plan s/p exploratory laparotomy, antrectomy, gastrojejunostomy (Billroth 2 procedure) hyperchromic anemia electrolyte imbalance doing well. no acute events. pain improved. passing flatus. ambulatory. no n /v/f/c. exam benign. drain with minimal serous output ng tube with decreasing bilious output. dc NGT diet per surgery AM labs pain mgmt ambulate and out of bed. fu labs dc planning Subjective Gastrointestinal/Abdominal: Reports: no symptoms Objective Last 24 Hour Vital Signs Date Time Temp Pulse Resp B/P (MAP) Pulse Ox O2 Delivery O2 Flow Rate FiO2 09/16/17 08:00 98.5 81 20 124/84 100 Room Air 98.5 09/15/17 20:00 98.2 70 20 130/80 100 Room Air 98.2 09/15/17 16:53 98.0 09/15/17 16:23 98.0 09/15/17 16:00 98.3 75 18 133/85 100 Room Air 98.3 09/15/17 12:00 98.0 76 17 141/96 100 Room Air 98.0 Intake and Output 09/15/17 09/16/17 19:00 07:00 Intake Total 1460 ml 1150 ml Output Total 10 ml 20 ml Balance 1450 ml 1130 ml Intake Oral 360 ml 150 ml IV Total 1100 ml 1000 ml Drainage Total 10 ml 20 ml # Voids 5 2 Laboratory Tests Test 09/16/17 08:00 White Blood Count 5.3 K/UL (4.8-10.8) Red Blood Count 3.85 M/UL (4.70-6.10) L Hemoglobin 12.8 G/DL (14.2-18.0) L Hematocrit 35.6 % (42.0-52.0) L Mean Corpuscular Volume 92 FL (80-99) Mean Corpuscular Hemoglobin 33.2 PG (27.0-31.0) H Mean Corpuscular Hemoglobin Concent 36.0 G/DL (32.0-36.0) Red Cell Distribution Width 11.0 % (11.6-14.8) L Platelet Count 313 K/UL (150-450) Mean Platelet Volume 5.4 FL (6.5-10.1) L Neutrophils (%) (Auto) 57.3 % (45.0-75.0) Lymphocytes (%) (Auto) 27.5 % (20.0-45.0) Monocytes (%) (Auto) 12.3 % (1.0-10.0) H Eosinophils (%) (Auto) 1.2 % (0.0-3.0) Basophils (%) (Auto) 1.8 % (0.0-2.0) Sodium Level 135 MMOL/L (136-145) L Potassium Level 3.6 MMOL/L (3.5-5.1) Chloride Level 102 MMOL/L (98-107) Carbon Dioxide Level 25 MMOL/L (21-32) Anion Gap 8 mmol/L (5-15) Blood Urea Nitrogen 4 mg/dL (7-18) L Creatinine 0.9 MG/DL (0.55-1.30) Estimat Glomerular Filtration Rate > 60 mL/min (>60) Glucose Level 122 MG/DL (74-106) H Calcium Level 8.6 MG/DL (8.5-10.1) Height (Feet): 5 Height (Inches): 11.00 Weight (Pounds): 169 General Appearance: WD/WN, no apparent distress, alert Cardiovascular: normal rate Respiratory/Chest: normal breath sounds, no respiratory distress Abdominal Exam: normal bowel sounds, non tender, soft Extremities: normal range of motion, non-tender Walter Molina NP Sep 16, 2017 10:42
[2017-09-16 12:00] VITALS: BP 150/95
--- NOTE | 2017-09-16 13:27 | Nephrology Progress Note ---
Assessment/Plan Assessment 1. Hypovolemic hyponatremia. 2. Hypokalemia. 3. Acute renal failure, 4. Status post perforated duodenal ulcer Plan plan continue ivf monitoring electrolyte avoid NSAID replace electrolyte Objective Objective Last 24 Hour Vital Signs Date Time Temp Pulse Resp B/P (MAP) Pulse Ox O2 Delivery O2 Flow Rate FiO2 09/16/17 12:00 98.2 82 20 150/95 100 Room Air 98.2 09/16/17 08:00 98.5 81 20 124/84 100 Room Air 98.5 09/15/17 20:00 98.2 70 20 130/80 100 Room Air 98.2 09/15/17 16:53 98.0 09/15/17 16:23 98.0 09/15/17 16:00 98.3 75 18 133/85 100 Room Air 98.3 Intake and Output 09/15/17 09/16/17 19:00 07:00 Intake Total 1460 ml 1150 ml Output Total 10 ml 20 ml Balance 1450 ml 1130 ml Intake Oral 360 ml 150 ml IV Total 1100 ml 1000 ml Drainage Total 10 ml 20 ml # Voids 5 2 Laboratory Tests 09/16/17 08:00: White Blood Count 5.3, Red Blood Count 3.85L, Hemoglobin 12.8L, Hematocrit 35.6L , Mean Corpuscular Volume 92, Mean Corpuscular Hemoglobin 33.2H, Mean Corpuscular Hemoglobin Concent 36.0, Red Cell Distribution Width 11.0L, Platelet Count 313, Mean Platelet Volume 5.4L, Neutrophils (%) (Auto) 57.3, Lymphocytes (%) (Auto) 27.5, Monocytes (%) (Auto) 12.3H, Eosinophils (%) (Auto) 1.2, Basophils (%) (Auto) 1.8, Sodium Level 135L, Potassium Level 3.6, Chloride Level 102, Carbon Dioxide Level 25, Anion Gap 8, Blood Urea Nitrogen 4L, Creatinine 0.9, Estimat Glomerular Filtration Rate > 60, Glucose Level 122H, Calcium Level 8.6 Height (Feet): 5 Height (Inches): 11.00 Weight (Pounds): 169 Objective HEAD AND NECK: No JVP. No LAD. No thyromegaly. Extraocular movement sintact. Pupils are reactive to light and accommodation. LUNGS: Clear to auscultation. CARDIAC: Regular rate and rhythm. S1 and S2. No murmur. No rub. ABDOMEN: Status post exploratory laparotomy and diffusely tender, guarding, and bowel sounds are decreased. EXTREMITIES: No edema. No clubbing. No cyanosis. Gogo Velázquez MD Sep 16, 2017 13:27
--- NOTE | 2017-09-16 13:41 | Infectious Diseases Prog Note ---
Assessment/Plan Assessment/Plan Assessment: Perforated duodenal ulcer -s/p exploratory laparotomy, antrectomy, gastrojejunostomy (Billroth 2 procedure) 09/09 -OR cx Neg -CT abd/p: Evidence of a perforation of a hollow viscus. Moderate free air is in the upper abdomen. Moderate free fluid. There is dilatation of the stomach with apparent narrowing in the first portion of duodenum with suspicion of a mucosal ulcer. Suspect this is the area of perforation due to [place] ulceration or ulcerative tumor. Leukocytosis, resolved- 2ry to above (reactive, post-op) -afebrile -u/a neg -CXR 09/12: No acute findings -BCx Neg HAM, resolved Plan: -Continue to monitor off abx -09/13 SP sushant-op Zosyn #5 -Monitor CBC/BMP, temperatures -wound care -aspiration precautions -Sx f/u Thank you for this consultation. Will continue to follow along with you. Discussed with RN. Subjective Allergies: Coded Allergies: No Known Allergies (Unverified , 09/09/17) Subjective afebrile no leukocytosis on full liquid diet off abx Objective Vital Signs Last 24 Hour Vital Signs Date Time Temp Pulse Resp B/P (MAP) Pulse Ox O2 Delivery O2 Flow Rate FiO2 09/16/17 12:00 98.2 82 20 150/95 100 Room Air 98.2 09/16/17 08:00 98.5 81 20 124/84 100 Room Air 98.5 09/15/17 20:00 98.2 70 20 130/80 100 Room Air 98.2 09/15/17 16:53 98.0 09/15/17 16:23 98.0 09/15/17 16:00 98.3 75 18 133/85 100 Room Air 98.3 Height (Feet): 5 Height (Inches): 11.00 Weight (Pounds): 169 Objective General Appearance: WD/WN Lines, tubes and drains: peripheral HEENT: normocephalic, anicteric Neck: non-tender, normal alignment Respiratory/Chest: chest wall non-tender, lungs clear Breasts: no masses Cardiovascular/Chest: normal peripheral pulses Abdomen: mid line surgical incision, no signs of infection Laboratory Tests Test 09/16/17 08:00 White Blood Count 5.3 K/UL (4.8-10.8) Red Blood Count 3.85 M/UL (4.70-6.10) L Hemoglobin 12.8 G/DL (14.2-18.0) L Hematocrit 35.6 % (42.0-52.0) L Mean Corpuscular Volume 92 FL (80-99) Mean Corpuscular Hemoglobin 33.2 PG (27.0-31.0) H Mean Corpuscular Hemoglobin Concent 36.0 G/DL (32.0-36.0) Red Cell Distribution Width 11.0 % (11.6-14.8) L Platelet Count 313 K/UL (150-450) Mean Platelet Volume 5.4 FL (6.5-10.1) L Neutrophils (%) (Auto) 57.3 % (45.0-75.0) Lymphocytes (%) (Auto) 27.5 % (20.0-45.0) Monocytes (%) (Auto) 12.3 % (1.0-10.0) H Eosinophils (%) (Auto) 1.2 % (0.0-3.0) Basophils (%) (Auto) 1.8 % (0.0-2.0) Sodium Level 135 MMOL/L (136-145) L Potassium Level 3.6 MMOL/L (3.5-5.1) Chloride Level 102 MMOL/L (98-107) Carbon Dioxide Level 25 MMOL/L (21-32) Anion Gap 8 mmol/L (5-15) Blood Urea Nitrogen 4 mg/dL (7-18) L Creatinine 0.9 MG/DL (0.55-1.30) Estimat Glomerular Filtration Rate > 60 mL/min (>60) Glucose Level 122 MG/DL (74-106) H Calcium Level 8.6 MG/DL (8.5-10.1) Current Medications Medications (Trade) Dose Ordered Sig/Tisha Route PRN Reason Start Time Stop Time Status Last Admin Dose Admin Acetaminophen (Tylenol) 650 mg Q4H PRN RECTAL FEVER (temp>100.5F) 09/10/17 22:00 10/09/17 17:59 Acetaminophen/ Hydrocodone Bitart ([place] 5/325) 1 tab Q4H PRN ORAL for mild pain (1-3) 09/15/17 15:30 09/22/17 15:29 Dextrose/ Electrolytes 1,000 ml @ 100 mls/hr Q10H IV 09/10/17 21:00 10/09/17 19:59 09/16/17 06:41 Diphenhydramine HCl (Benadryl) 12.5 mg Q6H PRN IVP Itching/Pruritis 09/11/17 00:00 10/09/17 17:59 Heparin Sodium (Porcine) (Heparin 5000 units/ml) 5,000 units EVERY 12 HOURS SUBQ 09/10/17 21:00 10/09/17 20:59 09/16/17 08:41 Hydromorphone HCl (Dilaudid) 0.5 mg Q3H PRN IVP Pain Score 4-6 09/15/17 16:00 09/16/17 17:59 09/16/17 11:30 Morphine Sulfate (Morphine Sulfate) 4 mg Q4H PRN IVP Severe Pain (Pain Scale 7-10) 09/10/17 22:00 09/16/17 17:59 09/16/17 01:10 Ondansetron HCl (Zofran) 4 mg Q6H PRN IVP Nausea & Vomiting 09/11/17 00:00 10/09/17 17:59 09/11/17 22:58 Pantoprazole (Protonix) 40 mg DAILY ORAL 09/16/17 09:00 10/16/17 08:59 09/16/17 08:40 Belkys Farrell M.D. Sep 16, 2017 13:41
--- NOTE | 2017-09-16 13:55 | General Progress Note ---
Assessment/Plan Problem List: (1) Perforated ulcer ICD Codes: K27.5 - Chronic or unspecified peptic ulcer, site unspecified, with perforation SNOMED: 01236213 (2) Severe sepsis ICD Codes: A41.9 - Sepsis, unspecified organism; R65.20 - Severe sepsis without septic shock SNOMED: 68867496 (3) Free intraperitoneal air ICD Codes: K66.8 - Other specified disorders of peritoneum SNOMED: 95472335 (4) Perforated abdominal viscus SNOMED: 687182455 (5) Abdominal pain ICD Codes: R10.9 - Unspecified abdominal pain SNOMED: 46530836 Status: stable, progressing Assessment/Plan ot pt diet abx pain control gi sx f/u cbc bmp am dc if clear Subjective Constitutional: Reports: weakness Allergies: Coded Allergies: No Known Allergies (Unverified , 09/09/17) All Systems: reviewed and negative except above Subjective ate ok, had bm Objective Last 24 Hour Vital Signs Date Time Temp Pulse Resp B/P (MAP) Pulse Ox O2 Delivery O2 Flow Rate FiO2 09/16/17 12:00 98.2 82 20 150/95 100 Room Air 98.2 09/16/17 08:00 98.5 81 20 124/84 100 Room Air 98.5 09/15/17 20:00 98.2 70 20 130/80 100 Room Air 98.2 09/15/17 16:53 98.0 09/15/17 16:23 98.0 09/15/17 16:00 98.3 75 18 133/85 100 Room Air 98.3 Intake and Output 09/15/17 09/16/17 19:00 07:00 Intake Total 1460 ml 1150 ml Output Total 10 ml 20 ml Balance 1450 ml 1130 ml Intake Oral 360 ml 150 ml IV Total 1100 ml 1000 ml Drainage Total 10 ml 20 ml # Voids 5 2 Laboratory Tests 09/16/17 08:00: White Blood Count 5.3, Red Blood Count 3.85L, Hemoglobin 12.8L, Hematocrit 35.6L , Mean Corpuscular Volume 92, Mean Corpuscular Hemoglobin 33.2H, Mean Corpuscular Hemoglobin Concent 36.0, Red Cell Distribution Width 11.0L, Platelet Count 313, Mean Platelet Volume 5.4L, Neutrophils (%) (Auto) 57.3, Lymphocytes (%) (Auto) 27.5, Monocytes (%) (Auto) 12.3H, Eosinophils (%) (Auto) 1.2, Basophils (%) (Auto) 1.8, Sodium Level 135L, Potassium Level 3.6, Chloride Level 102, Carbon Dioxide Level 25, Anion Gap 8, Blood Urea Nitrogen 4L, Creatinine 0.9, Estimat Glomerular Filtration Rate > 60, Glucose Level 122H, Calcium Level 8.6 Height (Feet): 5 Height (Inches): 11.00 Weight (Pounds): 169 General Appearance: alert EENT: normal ENT inspection Neck: normal alignment Cardiovascular: normal peripheral pulses, normal rate, regular rhythm Respiratory/Chest: chest wall non-tender, lungs clear, normal breath sounds Abdomen: normal bowel sounds, hypoactive bowel sounds Extremities: normal inspection Edema: no edema noted Arm (L), no edema noted Arm (R), no edema noted Leg (L), no edema noted Leg (R), no edema noted Pedal (L), no edema noted Pedal (R), no edema noted Generalized Neurologic: responsive, motor weakness Skin: normal pigmentation, warm/dry Real Ortiz DO Sep 16, 2017 13:55
[2017-09-16 16:00] VITALS: BP 134/89
--- NOTE | 2017-09-16 16:59 | General Progress Note ---
Progress Note Progress Note doing well. adv diet drain removed d/c tomorrow Yury Pittman Sep 16, 2017 16:59
[2017-09-16 20:00] VITALS: BP 139/88
[2017-09-16] MEDS: Norco 5mg/325mg tab ORAL PRN (20:18)
[2017-09-17] MEDS: Norco 5mg/325mg tab ORAL PRN (04:56)
[2017-09-17 08:00] VITALS: BP 153/88
[2017-09-17] MEDS: Heparin 5000 units/ml inj SUBQ SCH (09:18)
[2017-09-17] MEDS ORDERED: LANSOPRAZOLE30 M2 PO (11:20)
[2017-09-17] MEDS ORDERED: BIAXIN500 MG ORAL (11:21)
[2017-09-17] MEDS ORDERED: AMOX TR-K CLV1 EAC1 ORAL (11:21)
[2017-09-17] MEDS ORDERED: IBUPROFEN600 MG ORAL (11:21)
[2017-09-17] MEDS ORDERED: COLACE100 MG ORAL (11:21)
--- NOTE | 2017-09-17 12:23 | GI Progress Note ---
Assessment/Plan Problems: (1) Abdominal pain ICD Codes: R10.9 - Unspecified abdominal pain SNOMED: 33574675 (2) Perforated abdominal viscus SNOMED: 047881563 (3) Free intraperitoneal air ICD Codes: K66.8 - Other specified disorders of peritoneum SNOMED: 63723976 (4) Severe sepsis ICD Codes: A41.9 - Sepsis, unspecified organism; R65.20 - Severe sepsis without septic shock SNOMED: 37896011 (5) Perforated ulcer ICD Codes: K27.5 - Chronic or unspecified peptic ulcer, site unspecified, with perforation SNOMED: 38750890 Status: stable Status Narrative Discussed with Dr. Henry. Assessment/Plan s/p exploratory laparotomy, antrectomy, gastrojejunostomy (Billroth 2 procedure) hyperchromic anemia electrolyte imbalance doing well. no acute events. pain improved. passing flatus. ambulatory. no n /v/f/c. exam benign. drain with minimal serous output ng tube with decreasing bilious output. dc NGT diet per surgery AM labs pain mgmt ambulate and out of bed. fu labs dc planning Subjective Gastrointestinal/Abdominal: Reports: no symptoms Objective Last 24 Hour Vital Signs Date Time Temp Pulse Resp B/P (MAP) Pulse Ox O2 Delivery O2 Flow Rate FiO2 09/17/17 08:00 97.9 81 18 153/88 100 Room Air 97.9 09/16/17 20:00 98.2 74 21 139/88 100 Room Air 98.2 09/16/17 16:00 98.3 73 20 134/89 100 Room Air 98.3 Intake and Output 09/16/17 09/17/17 19:00 07:00 Intake Total 500 ml Output Total 1200 ml Balance 500 ml -1200 ml Intake Oral 500 ml Output Urine Total 1200 ml # Voids 2 # Bowel Movements 1 1 Height (Feet): 5 Height (Inches): 11.00 Weight (Pounds): 169 General Appearance: WD/WN, no apparent distress, alert Cardiovascular: normal rate Respiratory/Chest: normal breath sounds, no respiratory distress Abdominal Exam: normal bowel sounds, non tender, soft Extremities: normal range of motion, non-tender Walter Molina NP Sep 17, 2017 12:23
--- NOTE | 2017-09-17 12:32 | General Progress Note ---
Progress Note Progress Note surgery doing well. no acute events. comfortable tolerating diet. exam benign d/c home today follow up with me next week for staple removal. diet as tolerated Yury Pittman Sep 17, 2017 12:32
--- NOTE | 2017-09-17 14:29 | General Progress Note ---
Assessment/Plan Problem List: (1) Perforated ulcer ICD Codes: K27.5 - Chronic or unspecified peptic ulcer, site unspecified, with perforation SNOMED: 27030336 (2) Severe sepsis ICD Codes: A41.9 - Sepsis, unspecified organism; R65.20 - Severe sepsis without septic shock SNOMED: 15342936 (3) Free intraperitoneal air ICD Codes: K66.8 - Other specified disorders of peritoneum SNOMED: 88878375 (4) Perforated abdominal viscus SNOMED: 948621163 (5) Abdominal pain ICD Codes: R10.9 - Unspecified abdominal pain SNOMED: 80501576 Status: stable, progressing Assessment/Plan ot pt diet abx pain control gi sx f/u dc home Subjective Constitutional: Reports: weakness Allergies: Coded Allergies: No Known Allergies (Unverified , 09/09/17) All Systems: reviewed and negative except above Subjective ate ok, had bm Objective Last 24 Hour Vital Signs Date Time Temp Pulse Resp B/P (MAP) Pulse Ox O2 Delivery O2 Flow Rate FiO2 09/17/17 08:00 97.9 81 18 153/88 100 Room Air 97.9 09/16/17 20:00 98.2 74 21 139/88 100 Room Air 98.2 09/16/17 16:00 98.3 73 20 134/89 100 Room Air 98.3 Intake and Output 09/16/17 09/17/17 19:00 07:00 Intake Total 500 ml Output Total 1200 ml Balance 500 ml -1200 ml Intake Oral 500 ml Output Urine Total 1200 ml # Voids 2 # Bowel Movements 1 1 Height (Feet): 5 Height (Inches): 11.00 Weight (Pounds): 169 General Appearance: alert EENT: normal ENT inspection Neck: normal alignment Cardiovascular: normal peripheral pulses, normal rate, regular rhythm Respiratory/Chest: chest wall non-tender, lungs clear, normal breath sounds Abdomen: normal bowel sounds, non tender, soft Extremities: normal inspection Edema: no edema noted Arm (L), no edema noted Arm (R), no edema noted Leg (L), no edema noted Leg (R), no edema noted Pedal (L), no edema noted Pedal (R), no edema noted Generalized Neurologic: motor weakness Skin: normal pigmentation, warm/dry Real Ortiz DO Sep 17, 2017 14:29
--- NOTE | 2017-09-17 14:43 | Infectious Diseases Prog Note ---
Assessment/Plan Assessment/Plan Assessment: Perforated duodenal ulcer -s/p exploratory laparotomy, antrectomy, gastrojejunostomy (Billroth 2 procedure) 09/09 -OR cx Neg -CT abd/p: Evidence of a perforation of a hollow viscus. Moderate free air is in the upper abdomen. Moderate free fluid. There is dilatation of the stomach with apparent narrowing in the first portion of duodenum with suspicion of a mucosal ulcer. Suspect this is the area of perforation due to [place] ulceration or ulcerative tumor. Leukocytosis, resolved- 2ry to above (reactive, post-op) -afebrile -u/a neg -CXR 09/12: No acute findings -BCx Neg HAM, resolved Plan: -Continue to monitor off abx; ok to discharge from ID perspective -09/13 SP sushant-op Zosyn #5 -Monitor CBC/BMP, temperatures -wound care -aspiration precautions -Sx f/u Thank you for this consultation. Will continue to follow along with you. Discussed with RN. Subjective Allergies: Coded Allergies: No Known Allergies (Unverified , 09/09/17) Subjective afebrile no leukocytosis on regular diet off abx for discharge today Objective Vital Signs Last 24 Hour Vital Signs Date Time Temp Pulse Resp B/P (MAP) Pulse Ox O2 Delivery O2 Flow Rate FiO2 09/17/17 08:00 97.9 81 18 153/88 100 Room Air 97.9 09/16/17 20:00 98.2 74 21 139/88 100 Room Air 98.2 09/16/17 16:00 98.3 73 20 134/89 100 Room Air 98.3 Height (Feet): 5 Height (Inches): 11.00 Weight (Pounds): 169 Objective General Appearance: WD/WN Lines, tubes and drains: peripheral HEENT: normocephalic, anicteric Neck: non-tender, normal alignment Respiratory/Chest: chest wall non-tender, lungs clear Breasts: no masses Cardiovascular/Chest: normal peripheral pulses Abdomen: mid line surgical incision, no signs of infection Current Medications Medications (Trade) Dose Ordered Sig/Tisha Route PRN Reason Start Time Stop Time Status Last Admin Dose Admin Acetaminophen (Tylenol) 650 mg Q4H PRN RECTAL FEVER (temp>100.5F) 09/10/17 22:00 10/09/17 17:59 Acetaminophen/ Hydrocodone Bitart ([place] 5/325) 1 tab Q4H PRN ORAL for mild pain (1-3) 09/15/17 15:30 09/22/17 15:29 09/17/17 04:56 Diphenhydramine HCl (Benadryl) 12.5 mg Q6H PRN IVP Itching/Pruritis 09/11/17 00:00 10/09/17 17:59 Heparin Sodium (Porcine) (Heparin 5000 units/ml) 5,000 units EVERY 12 HOURS SUBQ 09/10/17 21:00 10/09/17 20:59 09/17/17 09:18 Ondansetron HCl (Zofran) 4 mg Q6H PRN IVP Nausea & Vomiting 09/11/17 00:00 10/09/17 17:59 09/11/17 22:58 Pantoprazole (Protonix) 40 mg DAILY ORAL 09/16/17 09:00 10/16/17 08:59 09/17/17 09:00 Belkys Farrell M.D. Sep 17, 2017 14:43
--- NOTE | 2017-09-18 12:44 | Discharge Summary ---
Discharge Summary Discharge Summary _ DATE OF ADMISSION: 09/09/2017 DATE OF DISCHARGE: 09/17/2017 CONSULTANTS: Dr. Yury Scott [facility]: Patient is a 56-year-old male, with no medical history, presented to ED via EMS complaining of abdominal pain for 3 days that has gotten worse. Pain was 10 over 10 and diffuse. Upon arrival to ED, he was diaphoretic, and tachycardic. He denied chest pain or shortness of breath. He had vomiting. On evaluation at ED, workup showed leukocytosis, WBC was 17, he was afebrile. He had acute kidney injury, sodium and potassium were low. CT scan of the abdomen showed evidence of perforation of a hollow viscus. There was moderate free air in the upper abdomen with moderate free fluid. There was dilatation of the stomach with apparent narrowing in the first portion of the duodenum suspicious of a mucosal ulcer. An emergent surgical evaluation was done. Patient was placed on nothing by mouth and was started on IV fluids and IV antibiotic Zosyn. He underwent an emergent exploratory laparotomy, antrectomy, and gastrojejunostomy Billroth II procedure by Dr. Pittman. Postop findings showed a large perforated prepyloric ulcer causing gastric outlet obstruction. [place] drain and NG tube were left in place. He tolerated procedure well. Postoperatively, he was continued on antibiotics. NG tube was connected to low intermittent suction. He was given IV fluids D5 half NS, he was given potassium and magnesium supplements. He had hypovolemic hyponatremia which subsequently improved with IV hydration. He was also tachycardic assessed to be due to third spacing. Leukocytosis resolved, urinalysis was negative, blood culture did not isolate any growth. He received 5 days of IV antibiotics. Drain had minimal output and NG tube with decreasing bilious output. He was passing flatus and was ambulatory. He was started trial of clear liquids. She was tolerating clear liquid, NG tube was discontinued and was given full liquid diet. There was return of bowel function and diet was advanced as tolerated. He was then cleared for discharge. FINAL DIAGNOSES: Acute perforated duodenal ulcer Leukocytosis resolved Acute kidney injury resolved Hypovolemic hyponatremia Hypokalemia Sinus tachycardia resolved with hydration and electrolyte replacement PROCEDURE: Exploratory laparotomy, antrectomy with gastrojejunostomy Billroth II procedure and abdominal washout. (Referred to operative report) DISPOSITION: Patient was discharged home. DISCHARGE MEDICATIONS: Refer to Discharge Medication List. Continue with po antibiotics. DISCHARGE INSTRUCTIONS: Follow up with PCP in a week. Follow-up with Dr. Yury Pittman next week for staple removal. I have been assigned to dictate discharge summary on this account, and I was not involved in the patient's management. Little Barraza NP Sep 18, 2017 12:44
== END 2017-09-17 15:30 | disposition home or self-care (01) | DRG 853 ==
LOC: EDBD 10:50 → EMR 12:14 → EDBEDREQ 13:41 → EDBEDREQSVC 13:42 → EDBEDREQ 13:55 → SUR 14:01 → EDBEDREQ 14:52 → 2E 15:40 → 4E 09-10 20:56
DX: A41.9 Sepsis, unspecified organism (principal); N17.0 Acute kidney failure with tubular necrosis; K25.1 Acute gastric ulcer with perforation; K65.8 Other peritonitis; K31.1 Adult hypertrophic pyloric stenosis; E87.1 Hypo-osmolality and hyponatremia; R65.20 Severe sepsis without septic shock; E86.0 Dehydration; E87.6 Hypokalemia; R00.0 Tachycardia, unspecified; E86.1 Hypovolemia
CPT/HCPCS: 36415; 71045; 74177; 80048; 80053; 81001; 82043; 82044; 83605; 83690; 83735; 84100; 84300; 85007; 85025; 85610; 85730; 86677; 86850; 86900; 86901; 87040; 87070; 87075; 87205; 89050; 93005; 94003; 94150; 99285; 99291; J2405; J2710; J8499